=== PATIENT | male | born 1945 | race Caucasian/White ===

== ENCOUNTER 2020-07-16 10:33 | Inpatient (IN) | payer MEDICARE, OTHER ==
[~2020-07-16] VITALS: Ht 180.3 cm; Wt 118.4 kg
[~2020-07-16 10:33] MED LIST: NEURONTIN300 MG PO; TRAMADOL HCL50 M1 PO; Z.0.ALLOPURINOL300 M PO; Z.0.ASACOL400 MG PO; Z.0.FOLIC ACID1 MG PO; Z.0.HUMIRA40 MG/0.1 SQ; Z.0.LISINOPRIL20 MG PO; Z.0.PRILOSEC OTC20 M PO; Z.0.TRILIPIX135 MG PO; Z.0.VITAMIN D2000 UN PO; Z.1.METHOTREXATE2.5 PO; [UNRECOGNIZED DRUG - OTHER] PO
[2020-07-16] MEDS ORDERED: LACTATED RINGER'S 1,000 ML INJ ONE ×2 (11:00→12:30)
--- NOTE | 2020-07-16 11:06 | Emergency Department Note ---
History of Present Illnes History of Present Illness Chief Complaint: COVID PUI History of Present Illness This is a 75 year old male that has a history of COPD now with a new fever today and slightly worsening cough. Patient also feels generalized weakness, nonfocal. Patient denies any pain anywhere, no abdominal pain, no urinary complaints. Patient is otherwise at baseline. Otherwise, patient had an axillary temperature of 101 this morning for which she took a gram of Tylenol. . Arrival Mode: Car Onset (how long ago): day(s) (1) Location: diffuse Quality: cough Radiation: Reports non-radiation Severity: moderate Onset quality: gradual Duration (how long): day(s) (1) Timing of current episode: constant Progression: worsening Chronicity: new Context: Reports recent illness; Denies non-compliance w/ medications Relieving factors: none Exacerbating factors: none Associated symptoms: Reports cough, Reports fever/chills, Reports loss of appetite, Reports malaise, Reports weakness, Reports other (+URI, nasal congestion); Denies nausea/vomiting, Denies shortness of breath Past Medical/Family History Physician Review I have reviewed the patient's past medical and family history. Any updates have been documented here. Past Medical History Other Medical History: CHRONS, RA, Other Surgery: LOWER GI, KNEE Other Last Tetanus: UTD Review of Systems Review of Systems Constitutional: Reports no symptoms EENTM: Reports as per HPI Cardiovascular: Reports no symptoms Respiratory: Reports no symptoms Gastrointestinal: Reports no symptoms Genitourinary: Reports no symptoms Musculoskeletal: Reports no symptoms Integumentary: Reports no symptoms Neurological: Reports as per HPI Psychological: Reports no symptoms Endocrine: Reports no symptoms Hematological/Lymphatic: Reports no symptoms Physical Exam Related Data Allergies: Coded Allergies: hydroxychloroquine sulfate (Verified Allergy, Severe, 05/03/12) Vital signs reviewed: Yes Physical Exam CONSTITUTIONAL Constitutional: Present well-developed, Present well-nourished HENT HENT: Present normocephalic, Present atraumatic, Present oropharynx clear/moist, Present nose normal HENT L/R: Present left ext ear normal, Present right ext ear normal EYES Eyes: Reports PERRL, Reports conjunctivae normal NECK Neck: Present ROM normal PULMONARY Pulmonary: Present effort normal, Present rales (LLL) CARDIOVASCULAR Cardiovascular: Present regular rhythm, Present heart sounds normal, Present capillary refill normal, Present tachycardia GASTROINTESTINAL Abdominal: Present soft, Present nontender, Present bowel sounds normal GENITOURINARY Genitourinary: Present exam deferred SKIN Skin: Present warm, Present dry MUSCULOSKELETAL Musculoskeletal: Present ROM normal, Present tenderness (TTP) NEUROLOGICAL Neurological: Present alert, Present oriented x 3, Present no gross motor or sensory deficits PSYCHOLOGICAL Psychological: Present mood/affect normal, Present judgement normal Results Laboratory Laboratory Laboratory Tests Test 07/16/20 11:59 07/16/20 10:50 Urine Color Yellow (YELLOW) Urine Clarity Sl cloudy (CLEAR) Urine pH 5.5 (5 - 7) Urine Specific [place] 1.020 (1.010-1.025) Urine Protein 1+ (NEGATIVE) Urine Glucose (UA) Negative (NEGATIVE) Urine Ketones Negative (NEGATIVE) Urine Blood Negative (NEGATIVE) Urine Nitrite Negative (NEGATIVE) Urine Bilirubin Negative (NEGATIVE) Urine Urobilinogen 0.2 mg/dL (0.2 - 1) Urine Leukocyte Esterase Negative (NEGATIVE) Urine RBC 0-5 /HPF (0-5) Urine WBC 0-5 /HPF (0-5) Urine Epithelial Cells Few /LPF (NONE) Urine Bacteria Rare /HPF (NONE) White Blood Count 17.43 x10e3/uL (4.8-10.8) Red Blood Count 3.84 x10e6/uL (4.3-5.7) Hemoglobin 12.0 g/dL (14.0-18.0) Hematocrit 36.6 % (38.2-49.6) Mean Corpuscular Volume 95.3 fL (81-99) Mean Corpuscular Hemoglobin 31.3 pg (28-32) Mean Corpuscular Hemoglobin Concent 32.8 g/dL (31-35) Red Cell Distribution Width 14.5 % (11.7-14.4) Platelet Count 219 x10e3/uL (140-360) Neutrophils (%) (Auto) 81.2 % (38.7-80.0) Lymphocytes (%) (Auto) 9.9 % (18.0-39.1) Monocytes (%) (Auto) 7.8 % (4.4-11.3) Eosinophils (%) (Auto) 0.1 % (0.0-6.0) Basophils (%) (Auto) 0.3 % (0.0-1.0) Neutrophils # (Auto) 14.1 (2.1-6.9) Lymphocytes # (Auto) 1.7 (1.0-3.2) Monocytes # (Auto) 1.4 (0.2-0.8) Eosinophils # (Auto) 0.0 (0.0-0.4) Basophils # (Auto) 0.1 (0.0-0.1) Absolute Immature Granulocyte (auto 0.13 x10e3/uL (0-0.1) D-Dimer Quantitative (PE/DVT) 1.50 ug/mLFEU (0.00-0.45) Sodium Level 141 mmol/L (136-145) Potassium Level 3.2 mmol/L (3.5-5.1) Chloride Level 107 mmol/L (98-107) Carbon Dioxide Level 17 mmol/L (22-29) Anion Gap 20.2 mmol/L (8-16) Blood Urea Nitrogen 13 mg/dL (7-26) Creatinine 1.34 mg/dL (0.72-1.25) Estimat Glomerular Filtration Rate 52 ML/MIN (60-) BUN/Creatinine Ratio 10 (6-25) Glucose Level 109 mg/dL (74-118) Lactic Acid Level 3.4 mmol/L (0.5-2.0) Calcium Level 8.6 mg/dL (8.4-10.2) Total Bilirubin 1.1 mg/dL (0.2-1.2) Aspartate Amino Transf (AST/SGOT) 27 IU/L (5-34) Alanine Aminotransferase (ALT/SGPT) 24 IU/L (0-55) Alkaline Phosphatase 93 IU/L (40-150) Troponin I 0.048 ng/mL (0-0.300) B-Type Natriuretic Peptide 78.8 pg/mL (0-100) Total Protein 6.8 g/dL (6.5-8.1) Albumin 3.9 g/dL (3.5-5.0) Globulin 2.9 g/dL (2.3-3.5) Albumin/Globulin Ratio 1.3 (0.8-2.0) Lab results reviewed: Yes Imaging Imaging results reviewed: Yes Diagnostics Tests Diagnostic test(s) reviewed: Yes Assessment & Plan Medical Decision Making MDM Patient is a 75-year-old male that has a history of a fever, worsening cough, runny nose for 1 day. Patient is tachycardic, otherwise does not appear septic. We will do a septic workup and chest x-ray to rule out pneumonia. No abdominal pain, no urinary complaints no other source of infection. EKG interpreted by me shows sinus tachycardia, left axis deviation, normal intervals, no acute ST changes, poor anterior progression otherwise EKG nondiagnostic. Reassessment Reassessment 12:19 - patient with concern for multi-lobar pneumonia, COVID neg. We will continue hydration, cover w cefepime and vanc. Pt is [facility] patient, will be admitted to unassigned. BP normal. No sign of shock at this time, repeat lactate sent. Assessment & Plan Final Impression: (1) Multilobar lung infiltrate (2) Sepsis Depart Disposition: ADMITTED Last Vital Signs Date Time Temp Pulse Resp B/P (MAP) Pulse Ox O2 Delivery O2 Flow Rate FiO2 07/16/20 11:05 99 26 97 Room Air 07/16/20 10:40 98.1 Home Meds Reported Medications Mu-Vits-Min Th/Lycopene/Lutein (CENTRUM SILVER TABLET) 1 Each Tablet 07/16/20 [place]-3 Fatty Acids (OMEGA-3) 1,000 Mg Capsule, 1 TAB PO BID 07/16/20 Sulfasalazine (SULFASALAZINE) 500 Mg Tab, 500 MG PO BID, #30 TAB 07/16/20 Pregabalin (LYRICA) 75 Mg Cap, 75 MG PO TID, CAP 07/16/20 Hydrocodone Bit/Acetaminophen (NORCO 10-325 TABLET) 1 Each Tablet, 1 TAB PO Q6H PRN for SEVERE PAIN (7-10), TAB 07/16/20 Simvastatin (SIMVASTATIN) 40 Mg Tablet, 40 MG PO 2100, #30 TAB 07/16/20 Omeprazole Magnesium (Prilosec Otc) 20 Mg Tablet.dr, 40 MG PO DAILY 04/25/12 Allopurinol (Allopurinol) 300 Mg Tablet, 300 MG PO DAILY 04/25/12 Zinc (Zinc) 50 Mg Tablet, 50 MG PO DAILY 04/25/12 Cholecalciferol (Vitamin D) 2,000 Unit Tablet, 2000 UNIT PO DAILY 04/25/12 Adalimumab (Humira) 40 Mg/0.8 Ml [email or web address], 40 MG SQ 04/25/12 Lisinopril (Lisinopril) 20 Mg Tablet, 20 MG PO DAILY 04/25/12 Discontinued Reported Medications Fenofibric Acid (Choline) (Trilipix) 135 Mg Capsule.dr, 135 MG PO DAILY 04/25/12 Mesalamine (Asacol) 400 Mg Tablet.dr, 400 MG PO TID, #2 04/25/12 Medications in the ED Lactated Ringer's 1,000 ml @ 0 mls/hr Q0M ONCE INJ ; Start 07/16/20 at 11:00; Stop 07/16/20 at 11:01 YULY SOLO MD Jul 16, 2020 11:06
[2020-07-16 11:10] LABS: BASOPHILS # (AUTO) 0.1 (0.0-0.1); BASOPHILS % 0.3 % (0.0-1.0); EOSINOPHILS % 0.1 % (0.0-6.0); HEMATOCRIT 36.6 % (38.2-49.6); LYMPHOCYTES # (AUTO) 1.7 (1.0-3.2); LYMPHOCYTES % 9.9 % (18.0-39.1); MEAN CORPUSCULAR HEMOGLOBIN 31.3 pg (28-32); MEAN CORPUSCULAR HGB CONC 32.8 g/dL (31-35); MEAN CORPUSCULAR VOLUME 95.3 fL (81-99); MONOCYTES # (AUTO) 1.4 (0.2-0.8); MONOCYTES % 7.8 % (4.4-11.3); NEUTROPHILS # (AUTO) 14.1 (2.1-6.9); NEUTROPHILS % 81.2 % (38.7-80.0); PLATELET COUNT 219 x10e3/uL (140-360); RED BLOOD COUNT 3.84 x10e6/uL (4.3-5.7); RED CELL DISTRIBUTION WIDTH 14.5 % (11.7-14.4)
[2020-07-16] MEDS ORDERED: CENTRUM SILVER1 EAC3 (11:13)
[2020-07-16] MEDS ORDERED: OMEGA-31000 MG PO (11:13)
[2020-07-16] MEDS ORDERED: SIMVASTATIN40 MG PO (11:13)
[2020-07-16] MEDS ORDERED: SULFASALAZINE500 MG PO (11:13)
[2020-07-16] MEDS ORDERED: LYRICA75 MG PO (11:13)
[2020-07-16] MEDS ORDERED: NORCO 10-325 T1 EACH PO (11:13)
--- OUTSIDE RECORDS SUMMARY | 2020-07-16 11:23 | XMS REPORT | Continuity of Care Document ---
Author Author dotSyntaxann Information HANNY Wagner Organization [employer] Address Unknown Phone Unavailable Care Team Providers Care Insurance Claim Auditor Name Role Phone [employer] Unavailable Un available Problems Problem Status Onset Date Classification Date Reported Comments Source RT KNEE Active 05/05/2020 SMR [place] M54.31 - SCIATICA, RIGHT SIDE Active 04/24/2018 OPID [place] Body mass index (BMI) 37.0-37.9, adult Active Problem Dale Pintoer Morbid (severe) obesity due to excess calories Active Problem 05/28/2019 Dale Tracey Carpal tunnel syndrome Active Problem 06/25/2020 Dale Pintoer Crohn disease Active Problem 06/25/2020 Dale Pintoer Fever, unspecified Active Problem 06/25/2020 Dale Pintoer Other custodial (current) drug therapy Active Problem Dale Tracey Body mass index (BMI) 34.0-34.9, adult Active Problem Dale Tracey Crohn's disease, unspecified, with other complication Active Problem 06/25/2020 Dale Pintoer Inflammatory arthritis Active Diagnosis 06/25/2020 Dale Tracey Lumbar degenerative disc disease Active Problem Dale Tracey Primary osteoarthritis of right knee Active Problem Dale Pintoer Rheumatoid arthritis Active Problem 12/03/2019 Dale Pintoer Long-term (current) use of other medicat ions - High Risk Active Diag nosis 02/18/2019 Dale Tracey Osteoporosis screening Active Diagnosis 05/01/2018 Dale Pintoer Crohn's disease Active Problem 10/17/2016 Dale Pintoer RENAL INSUFFICIENCY Active Problem 10/17/2016 Dale Tracey Nonspecific reaction to tuberculin skin test without active tuberculosis Active Prob emil 10/17/2016 Dale Tracey Lumbar Radiculopathy Active Problem 10/17/2016 Dale Alexy Rheumatoid arthritis with unknown rheuma toid factor status Active Prob emil 02/01/2016 Dalekath Tracey tank terminal gauger (current) use of opiate analgesic Active Diagnosis 05/28/2019 Dale Tracey Degeneration of lumbar or lumbosacral in tervertebral disc Active Diag nosis 06/17/2014 Dale Tracey Spasm of muscle Active Diagnosis 06/17/2014 Dale Tracey Unspecified drug dependence Ac tive Diagnosis 1 Dale Tracey Hand pain, right Active Diagnosis 12/10/2015 Dale Alexy Hand pain, left Active Diagnosis 12/10/2015 Dale Tracey Rheumatoid arthritis Active Problem 06/25/2020 Dale Tracey Immunocompromised patient Acti ve Diagnosis 0 02/12/2020 Dale Tracey Immunocompromised state Active Problem 06/25/2020 Dale Tracey Medications Medication Details Route Status Patient Instructions Ordering Provider Order Date Source Synvisc One 6ml Intra-articular Active 48 MG/6ML Intra-articul ar into bi knees Hanson 12/22/2019 Dale Tracey Prednisone Taper as directed orally Active 5mg orally 3 tablets for 5 days, 2 tablets for 5 days and then 1 tablet for 5 days Tracey 08/25/2019 Dale Tracey Sulfasalazine 1 tablet Orally Active 500 MG Orally twice a d ay Kassie 07/09/2019 Dale Tracey Hydrocodone-Acetaminophen 1 ta blet as needed Orally Active 10-325 MG Orally qd prn Kassie 06/18/2019 Dale Tracey Folic Acid 1 tablet Orally Active 1 MG Orally Once a day [place] 05/14/2019 Dale Tracey Folic Acid 1 tablet Orally Active 1 MG Orally Once a day Tracey 01/30/2019 Dale Tracey Sulfasalazine 1 tablet Orally Active 500 Orally twice a day [place] 12/01/2017 Dale Tracey Hymovis as directed Intra- articular Active 24 MG/3ML Intra-articular Once a week Tracey 10/02/2017 Dale Tracey Synvisc One 1 injection Intra- articular Active 48 MG/6ML Intra-articular once [place] 09/02/2017 Dale Tracey Sulfasalazine 1 tablet Orally Active 500 MG Orally bid [place] 02/28/2017 Dale Tracey Hydrocodone-Acetaminophen 1 ta blet as needed Orally Active 10-325 MG Orally twice a day Kassie 12/30/2016 Dale Tracey Humira Pen 0.8 Subcutaneous Active 40 MG/0.8ML Subcutaneou s Once every two weeks Kassie 11/12/2015 Dale Tracey Folic Acid 1 tablet Orally Active 1 MG Orally Once a day Kassie 08/17/2015 Dale Tracey PredniSONE 1 tab Orally Active 5 MG Orally Once a dayp rn for RA flare. Kassie 05/26/2015 Dale Tracey Methotrexate (Anti-Rheumatic) as directed Orally Active 2.5 MG Orally take 8 tabs all together once weekly Kassie 02/18/2015 Dale Tracey Folic Acid as directed Orally Active 1 MG Orally every day e xcept for saturday Kassie 02/18/2015 Dale Tracey Hydrocodone-Acetaminophen 1 ta blet as needed Orally Active 10-325 MG Orally once a day [place] 05/26/2014 Dale Tracey Soma 1 tablet as needed Orally Active 250 MG Orally Three giselle es a day [place] 05/18/2014 Dale Tracey Vitamin B-12 1 tablet Orally Active Orally once a day [place] Naresh Tracey Centrum Silver Adult 50+ 1 tab let Orally Active Orally Once a day [facility] Dale Tracey Simvastatin 1 tablet in the ev ening Orally Active 40 MG Orally Once a day [facility] Dale Tracey Pentoxifylline 1 tablet with m eals Orally Active 400 MG Orally Twice a day [facility] Dale Tracey Apriso 4 capsules in the morni ng Orally Active 0.375 GM Orally Once a day [place] Dale Tracey Hydrocodone-Acetaminophen 1 ta blet as needed Orally Active 10-325 MG Orally twice a day [place] Dale Tracey Claritin 1 tablet Orally Active 10 MG Orally PRN [facility] Naresh Tracey Zinc 1 tablet Orally Active 50 MG Orally Once a day [facility] Naresh Tracey Lisinopril 1 tablet Orally Active 20 MG Orally Once a day [facility] Naresh Tracey Lyrica 1 capsule Orally Active 75 MG Orally Twice a da y [facility] Naresh Tracey Humira 0.8 ml Subcutaneous Active 40 MG/0.8ML Subcutaneou s every 2wks. [facility] Dale Tracey Fish Oil 1 capsule Orally Active 1000 MG Orally Once a d ay [facility] Naresh Tracey Allopurinol 1 tablet Orally Active 300 MG Orally Once a da y [facility] Dale Tracey Omeprazole 1 capsule Orally Active 40 MG Orally Once a day [facility] Naresh Tracey Vitamin D-3 1 capsule Orally Active 2000 UNIT Orally Once a day [place] Dale Tracey Vitamin C 1 capsule Orally Active Orally once a day [facility] Tracey Folic Acid TAKE ONE TABLET BY MOUTH DAILY EXCEPT FOR SATURDAY DIRECTED NA Active 1 MG [place] Dale Tracey Centrum Silver Adult 50+ 1 tab let Orally Active Orally Once a day [place] Dale Tracey Simvastatin 1 tablet in the ening Orally Active 40 MG Orally Once a day [place] Dale Tracey Claritin 1 tablet Orally Active 10 MG Orally Once a day [place] [facility] Fish Oil 1 capsule Orally Active 1000 MG Orally Once a d ay [place] Dale Tracey Lyrica 1 capsule Orally Active 75 MG Orally Twice a da y [place] [facility] Allopurinol 1 tablet Orally Active 300 MG Orally Once a da y [place] Dale Tracey Apriso [address] [facility] [facility] Orally Active 0.375 GM Orally Once a day [place] Dale Tracey Lisinopril 1 tablet Orally Active 20 MG Orally Once a day [place] [facility] Hydrocodone-Acetaminophen 1 ta blet as needed Orally Active 10-325 MG Orally twice a day [place] Dale Tracey Humira 0.8 ml Subcutaneous Active 40 MG/0.8ML Subcutaneou s every 2wks. [place] Dale Tracey Omeprazole 1 capsule Orally Active 40 MG Orally Once a day [place] Dale Tracey Vitamin C 1 capsule Orally Active Orally once a day [place] [facility] Pentoxifylline 1 tablet with m eals Orally Active 400 MG Orally Twice a day [place] Dale Tracey Vitamin D-3 1 capsule Orally Active 2000 UNIT Orally Once a day [place] Dale Tracey Zinc 1 tablet Orally Active 50 MG Orally Once a day [place] [facility] Vitamin B-12 1 tablet Orally Active Orally once a day [place] [facility] Sulf[facility] 1 tablet Orally Active 500 MG Orally twice a d ay [facility] Dale Tracey Vascepa 2 capsules with meals Orally Active 1 GM Orally Twice a day [facility] Dale Pintoer Tizanidine HCl 1 tablet as nee ded Orally Active 4 MG Orally Three times a day [place] Dale Tracey Nexium 1 capsule Orally Active 40 MG Orally Once a day [place] Tracey Trilipix 1 capsule Orally Active 135 MG Orally Once a da y [place] Naresh lip Tracey Humira Pen 0.8 Subcutaneous Active 40 MG/0.8ML Subcutaneou s Once every two weeks Alexy Pintoer Hydrocodone-Acetaminophen 1 ta blet as needed Orally Active 10-325 MG Orally once a day Alexy Pintoer Asacol 2 tablets Orally Active 800 MG Orally three giselle es [facility] Tracey Soma TAKE 1 TABLET BY MOUTH 3 TIMES A DAY NEEDED Orally Active 250 MG Orally TID Traceyrosanna Hunter Tracey Gabapentin 1 capsule Orally Active 300 MG Orally Twice a d ay Rolly Tracey Folic Acid TAKE DIRECTED BY MOUTH EVERY DAY EXCEPT FOR SATURDAY NA Active 1 MG [place] Dale Tracey Folic Acid TAKE DIRECTED BY MOUTH EVERY DAY EXCEPT FOR SATURDAY Orally Active 1 MG Orally Once a day Kassie Tracey Sulfamethoxazole-TMP DS 1 tabl et Orally Active 800-160 MG Orally Twice a day Kassie Tracey Methotrexate (Anti-Rheumatic) as directed Orally Active 2.5 MG Orally take 8 tabs all together once weekly [place] Dale Tracey Humira 0.4 ml Subcutaneous Active 40 MG/0.4ML Subcutaneou s every 2wks. Alexy Tracey Folic Acid TAKE ONE TABLET BY MOUTH DAILY NA Active 1 MG [place] Naresh moe Tracey Allergies, Adverse Reactions, Alerts Substance Category Reaction Severity Reaction type Status Date Reported Comments Source Methotrexate Adverse Reaction PNA Adverse Reaction Active 05/05/2020 Dale Tracey Plaquenil Adverse Reaction hives Adverse Reaction Active 05/05/2020 Dale Tracey Immunizations No Data Provided for This Section Results No Data Provided for This Section Pathology Reports No Data Provided for This Section Diagnostic Reports Report Value Date Source Bone Density DXA Dual Energy MA MALE BONE DENSITY ASSESSMENT: 04/25/2020 CLINICAL DATA: M81.0 Age-related osteoporosis without current pathologic fracture. /Z13.820 RISK FACTORS: race and more than 3 drinks per day. DISEASE HISTORY: Rheumatoid arthritis and cancer history. FINDINGS: Bone density evaluation was performed 04/25/2020 on the right femur neck using a Hologic unit. The BMD average for the exam is 0.903 g/cm2. The T-score is -0.20 and the Z-score is 1.10. This matches the World Health Organization's criteria for normal bone density and places the patient within normal limits of fracture risk. An additional bone density evaluation was performed 04/25/2020 on the left femur neck using a Hologic unit. The BMD average for the exam is 0.901 g/cm2. The T- score is -0.20 and the Z-score is 1.10. This matches the World Health Organization's criteria for normal bone density and places the patient within normal limits of fracture risk. An additional bone density evaluation was performed 04/25/2020 on the right hip using a Hologic unit. The BMD average for the exam is 1.097 g/cm2. The T-score is 0.40 and the Z-score is 1.20. This matches the World Health Organization's criteria for normal bone density and places the patient within normal limits of fracture risk. An additional bone density evaluation was performed 04/25/2020 on the left hip using a Hologic unit. The BMD average for the exam is 1.069 g/cm2. The T-score is 0.20 and the Z-score is 1.00. This matches the World Health Organization's criteria for normal bone density and places the patient within normal limits of fracture risk. An additional bone density evaluation was performed 04/25/2020 on the AP L1-L3 region of spine using a Hologic unit. The BMD average for the exam is 1.241 g/cm2. The T-score is 1.60 and the Z-score is 2.50. This matches the World Health Organization's criteria for normal bone density and places the patient within normal limits of fracture risk. IMPRESSION: BONE DENSITY WITHIN NORMAL LIMITS Patient is at normal risk for fracture. This exam was interpreted at [id number] for RON Joshi 15. Jordan Carver M.D., cm/damion:04/25/2020 13:56:03 Nursing Assoc(s): Chelsy HOLLEY(R)(M), [facility] 04/25/2020 EDDIE Khan Spine lumbar series DX EXAM: S pine lumbar series DX, Spine thoracic 3 views DX HISTORY: - M54.31 Sciatica, right side COMPARISON: None AP and lateral thoracic spine. AP and lateral and oblique lumbar spine. FINDINGS: Thoracic spine: There are moderate lower thoracic discogenic degenerative changes and mild degenerative changes elsewhere. There is slight anterior wedging at T11 and T12. . Lumbar spine: AP alignment is normal. There is no significant vertebral body or disc space height loss. Discogenic degenerative change at L1. Moderate L3-S1 facet arthropathy. IMPRESSION: 1. Moderate discogenic degenerative fitzgerald ge of the lower thoracic spine with slight anterior wedging of T11 and T12, stable when compared to the chest radiograph from 02/25/2015. 2. Facet arthropathy of the lower lumbar spine. 04/24/2018 GIL Khan Spine thoracic 3 views DX EXAM : Spine lumbar series DX, Spine thoracic 3 views DX HISTORY: - M54.31 Sciatica, right side COMPARISON: None AP and lateral thoracic spine. AP and lateral and oblique lumbar spine. FINDINGS: Thoracic spine: There are moderate lower thoracic discogenic degenerative changes and mild degenerative changes elsewhere. There is slight anterior wedging at T11 and T12. . Lumbar spine: AP alignment is normal. There is no significant vertebral body or disc space height loss. Discogenic degenerative change at L1. Moderate L3-S1 facet arthropathy. IMPRESSION: 1. Moderate discogenic degenerative fitzgreald ge of the lower thoracic spine with slight anterior wedging of T11 and T12, stable when compared to the chest radiograph from 02/25/2015. 2. Facet arthropathy of the lower lumbar spine. 04/24/2018 GIL Khan Consultation Notes No Data Provided for This Section Discharge Summaries No Data Provided for This Section History and Physicals No Data Provided for This Section Vital Signs Vital Sign Value Date Comments Source Weight 262.3 02/04/2020 Dale Tracey Height 69 0 02/04/2020 Dale Tracey Temperature Oral (F) 97.3 F 02/04/2020 Dale Tracey Heart Rate 80 02/04/2020 Dale Tracey Diastolic (mm Hg) 80 02/04/2020 Dale Tracey Systolic (mm Hg) 150 02/04/2020 Dale Tracey Weight 262.1 12/22/2019 Dale Tracey Height 70 0 12/22/2019 Dale Tracey Temperature Oral (F) 97.5 F 12/22/2019 Dale Tracey Heart Rate 80 12/22/2019 Dale Tracey Diastolic (mm Hg) 78 12/22/2019 Dale Tracey Systolic (mm Hg) 160 12/22/2019 Dale Tracey Weight 268.2 05/19/2019 Dale Tracey Height 70 0 05/19/2019 Dale Tracey Temperature Oral (F) 98.1 F 05/19/2019 Dale Tracey Heart Rate 82 05/19/2019 Dale Tracey Diastolic (mm Hg) 70 05/19/2019 Dale Tracey Systolic (mm Hg) 122 05/19/2019 Dale Tracey Weight 276.3 01/01/2019 Dale Tracey Height 70 0 01/01/2019 Dale Tracey Temperature Oral (F) 97.9 F 01/01/2019 Dale Tracey Heart Rate 104 01/01/2019 Dale Tracey Diastolic (mm Hg) 76 01/01/2019 Dale Tracey Systolic (mm Hg) 154 01/01/2019 Dale Tracey Weight 264.4 09/01/2018 Dale Tracey Height 70 1 Dale Tracey Temperature Oral (F) 98.1 F 09/01/2018 Dale Tracey Heart Rate 86 09/01/2018 Dale Tracey Diastolic (mm Hg) 70 09/01/2018 Dale Tracey Systolic (mm Hg) 136 09/01/2018 Dale Tracey Weight 256 08/20/2018 Dale Tracey Height 70 1 Dale Tracey Temperature Oral (F) 97.4 F 08/20/2018 Dale Tracey Heart Rate 100 08/20/2018 Dale Tracey Diastolic (mm Hg) 78 08/20/2018 Dale Tracey Systolic (mm Hg) 142 08/20/2018 Dale Tracey Weight 258 04/22/2018 Dale Tracey Height 68.5 04/22/2018 Dale Tracey Temperature Oral (F) 97.9 F 04/22/2018 Dale Tracey Heart Rate 56 04/22/2018 Dale Tracey Diastolic (mm Hg) 58 04/22/2018 Dale Tracey Systolic (mm Hg) 118 04/22/2018 Dale Tracey Weight 268.5 12/23/2017 Dale Tracey Height 70 0 12/23/2017 Dale Tracey Temperature Oral (F) 97.7 F 12/23/2017 Dale Tracey Heart Rate 78 12/23/2017 Dale Tracey Diastolic (mm Hg) 60 12/23/2017 Dale Tracey Systolic (mm Hg) 140 12/23/2017 Dale Tracey Weight 259.3 10/22/2017 Dale Tracey Height 70 1 12/23/2016 Dale Tracey Temperature Oral (F) 98.7 F 10/22/2017 Dale Tracey Heart Rate 76 10/22/2017 Dale Tracey Diastolic (mm Hg) 82 10/22/2017 Dale Tracey Systolic (mm Hg) 148 10/22/2017 Dale Tracey Weight 267.1 09/02/2017 Dale Tracey Height 70 1 Dale Tracey Temperature Oral (F) 97.9 F 09/02/2017 Dale Tracey Heart Rate 80 09/02/2017 Dale Tracey Diastolic (mm Hg) 70 09/02/2017 Dale Tracey Systolic (mm Hg) 144 09/02/2017 Dale Tracey Weight 262 06/03/2017 Dale Tracey Height 70 0 06/03/2017 Dale Tracey Temperature Oral (F) 98.4 F 06/03/2017 Dale Tracey Heart Rate 82 06/03/2017 Dale Tracey Diastolic (mm Hg) 60 06/03/2017 Dale Tracey Systolic (mm Hg) 140 06/03/2017 Dale Tracey Weight 265 02/28/2017 Dale Tracey Height 70 0 02/28/2017 Dale Tracey Temperature Oral (F) 98.1 F 02/28/2017 Dale Tracey Heart Rate 80 02/28/2017 Dale Tracey Diastolic (mm Hg) 64 02/28/2017 Dale Tracey Systolic (mm Hg) 142 02/28/2017 Dale Tracey Weight 261 11/30/2016 Dale Tracey Height 70 0 11/30/2016 Dale Tracey Temperature Oral (F) 96.3 F 11/30/2016 Dale Tracey Heart Rate 120 11/30/2016 Dale Tracey Diastolic (mm Hg) 62 11/30/2016 Dale Tracey Systolic (mm Hg) 160 11/30/2016 Dale Tracey Weight 267 08/30/2016 Dale Tracey Height 71 1 Dale Tracey Temperature Oral (F) 102.1 F 08/30/2016 Dale Tracey Heart Rate 86 08/30/2016 Dale Tracey Diastolic (mm Hg) 76 08/30/2016 Dale Tracey Systolic (mm Hg) 136 08/30/2016 Dale Tracey Weight 266 05/31/2016 Dale Tracey Height 70 0 05/31/2016 Dale Tracey Temperature Oral (F) 97.9 F 05/31/2016 Dale Tracey Heart Rate 80 05/31/2016 Dale Tracey Weight 271 05/03/2016 Dale Tracey Height 70 0 05/03/2016 Dale Tracey Temperature Oral (F) 97.3 F 05/03/2016 Dale Tracey Heart Rate 78 05/03/2016 Dale Tracey Diastolic (mm Hg) 74 05/03/2016 Dale Tracey Systolic (mm Hg) 122 05/03/2016 Dale Tracey Weight 260 02/01/2016 Dale Tracey Height 70 0 02/01/2016 Dale Tracey Temperature Oral (F) 98.4 F 02/01/2016 Dale Tracey Heart Rate 80 02/01/2016 Dale Tracey Diastolic (mm Hg) 70 02/01/2016 Dale Tracey Systolic (mm Hg) 140 02/01/2016 Dale Tracey Weight 263 08/17/2015 Dale Tracey Height 70 1 Dale Tracey Temperature Oral (F) 97.6 F 08/17/2015 Dale Tracey Heart Rate 76 08/17/2015 Dale Tracey Diastolic (mm Hg) 72 08/17/2015 Dale Tracey Systolic (mm Hg) 126 08/17/2015 Dale Tracey Weight 257 05/26/2015 Dale Tracey Height 70 0 05/26/2015 Dale Tracey Temperature Oral (F) 98.1 F 05/26/2015 Dale Tracey Heart Rate 78 05/26/2015 Dale Tracey Diastolic (mm Hg) 74 05/26/2015 Dale Tracey Systolic (mm Hg) 130 05/26/2015 Dale Tracey Weight 262 07/07/2014 Dale Tracey Height 70 0 07/07/2014 Dale Tracey Temperature Oral (F) 98.8 F 07/07/2014 Dale Tracey Heart Rate 80 07/07/2014 Dale Tracey Diastolic (mm Hg) 70 07/07/2014 Dale Tracey Systolic (mm Hg) 118 07/07/2014 Dale Tracey Weight 258 05/18/2014 Dale Tracey Height 70 0 05/18/2014 Dale Tracey Temperature Oral (F) 98.4 F 05/18/2014 Dale Tracey Heart Rate 84 05/18/2014 Dale Tracey Diastolic (mm Hg) 72 05/18/2014 Dale Tracey Systolic (mm Hg) 126 05/18/2014 Dale Tracey Encounters Location Location Details Encounter Type Encounter Number Reason For Visit Attending Provider ADM Date DC Date Status Source Ricky Tracey MD consult of MRI [id number] 05/18/20 14 05/18/2014 Dale Tracey MD consult of MRI [id number] 05/18/20 14 05/18/2014 Dale Tracey MD consult of MRI [id number] 05/18/20 14 05/18/2014 Dale Tracey MD consult of MRI [id number] 05/18/20 14 05/18/2014 Dale Tracey MD consult of MRI [id number] 05/18/20 14 05/18/2014 Dale Tracey MD consult of MRI [id number] 05/18/20 14 05/18/2014 Dale Tracey MD consult of MRI [id number] 05/18/20 14 05/18/2014 Dale Tracey MD consult of MRI [id number] 05/18/20 14 05/18/2014 Dale Tracey MD consult of MRI [id number] 05/18/20 14 05/18/2014 Dale Tracey MD consult of MRI [id number] 05/18/20 14 05/18/2014 Dale Tracey MD consult of MRI [id number] 05/18/20 14 05/18/2014 Dale Tracey MD consult of MRI [id number] 05/18/20 14 05/18/2014 Dale Tracey MD consult of MRI [id number] 05/18/20 14 05/18/2014 Dale Tracey MD consult of MRI [id number] 05/18/20 14 05/18/2014 Dale Tracey MD consult of MRI [id number] 05/18/20 14 05/18/2014 Dale Tracey MD consult of MRI [id number] 05/18/20 14 05/18/2014 Dale Tracey MD consult of MRI [id number] 05/18/20 14 05/18/2014 Dale Tracey MD consult of MRI [id number] 05/18/20 14 05/18/2014 Dale Tracey MD consult of MRI [id number] 05/18/20 14 05/18/2014 Dale Tracey MD consult of MRI [id number] 05/18/20 14 05/18/2014 Dale Tracey MD consult of MRI [id number] 05/18/20 14 05/18/2014 Dale Tracey MD consult of MRI [id number] 05/18/20 14 05/18/2014 Dale Tracey MD consult of MRI [id number] 05/18/20 14 05/18/2014 Dale Tracey MD consult of MRI [id number] 05/18/20 14 05/18/2014 Dale Tracey MD consult of MRI [id number] 05/18/20 14 05/18/2014 Dale Tracey MD consult of MRI [id number] 05/18/20 14 05/18/2014 Dale Tracey MD consult of MRI [id number] 05/18/20 14 05/18/2014 Dale Tracey MD consult of MRI [id number] 05/18/20 14 05/18/2014 Dale Tracey MD consult of MRI [id number] 05/18/20 14 05/18/2014 Dale Tracey MD consult of MRI [id number] 05/18/20 14 05/18/2014 Dale Tracey MD consult of MRI [id number] 05/18/20 14 05/18/2014 Dale Tracey MD consult of MRI [id number] 05/18/20 14 05/18/2014 Dale Tracey MD consult of MRI [id number] 05/18/20 14 05/18/2014 Dale Tracey MD consult of MRI [id number] 05/18/20 14 05/18/2014 Dale Tracey MD consult of MRI [id number] 05/18/20 14 05/18/2014 Dale Tracey MD consult of MRI [id number] 05/18/20 14 05/18/2014 Dale Tracey MD consult of MRI [id number] 05/18/20 14 05/18/2014 Dale Tracey MD consult of MRI [id number] 05/18/20 14 05/18/2014 Dale Tracey MD consult of MRI [id number] 05/18/20 14 05/18/2014 Dale Tracey MD consult of MRI [id number] 05/18/20 14 05/18/2014 Dale Tracey MD consult of MRI [id number] 05/18/20 14 05/18/2014 Dale Tracey MD soma PA [id number] 05/18/20 14 05/18/2014 Dale Tracey MD soma PA [id number] 05/18/20 14 05/18/2014 Dlae Tracey MD soma PA [id number] 05/18/20 14 05/18/2014 Dale Tracey MD soma PA [id number] 05/18/20 14 05/18/2014 Dale Tracey MD [facility] [place] [id number] 05/18/20 14 05/18/2014 Dale Tracey MD soma PA [id number] 05/18/20 14 05/18/2014 Dale Tracey MD [facility] PA [id number] 05/18/20 14 05/18/2014 Dale Tracey MD soma PA [id number] 05/18/20 14 05/18/2014 Dale Tracey MD soma PA [id number] 05/18/20 14 05/18/2014 Dale Tracey MD soma PA [id number] 05/18/20 14 05/18/2014 Dale Tracey [place] [facility] [id number] 05/18/20 14 05/18/2014 Dale Tr[facility] [id number] 05/18/20 14 05/18/2014 Dale Tr[facility] [id number] 05/18/20 14 05/18/2014 Dale Tracey MD [facility] [place] [id number] 05/18/20 14 05/18/2014 Dale Tracey MD [facility] [place] [id number] 05/18/20 14 05/18/2014 Dale Tracey MD [facility] [place] [id number] 05/18/20 14 05/18/2014 Dale Tr[facility] [id number] 05/18/20 14 05/18/2014 Dale Tracey MD [facility] [place] [id number] 05/18/20 14 05/18/2014 Dale Tracey [facility] [id number] 05/18/20 14 05/18/2014 Dale Tracey MD [facility] [place] [id number] 05/18/20 14 05/18/2014 Dale Tr[facility] [id number] 05/18/20 14 05/18/2014 Dale Tr[facility] [place] [facility] [place] [id number] 05/18/20 14 05/18/2014 Dale Tracey [place] [facility] [place] [id number] 05/18/20 14 05/18/2014 MD [facility] [place] [id number] 05/18/20 14 05/18/2014 Dale Tracey [facility] [id number] 05/18/20 14 05/18/2014 Dale Tr[facility] [id number] 05/18/20 14 05/18/2014 Dale Tr[facility] [place] [facility] [place] [id number] 05/18/20 14 05/18/2014 Dale Tr[facility] [id number] 05/18/20 14 05/18/2014 Dale [place] [place] [facility] [place] [id number] 05/18/20 14 05/18/2014 Dale Tr[facility] [id number] 05/18/20 14 05/18/2014 Dale Tr[facility] [id number] 05/18/20 14 05/18/2014 Dale Tracey MD [facility] [id number] 05/18/20 14 05/18/2014 Dale Tracey MD [facility] [id number] 05/18/20 14 05/18/2014 Dale Tracey MD [facility] [id number] 05/18/20 14 05/18/2014 MD hugh [place] [id number] 05/18/20 14 05/18/2014 Dale Tracey MD [facility] [id number] 05/18/20 14 05/18/2014 Dale Tracey MD [facility] [id number] 05/18/20 14 05/18/2014 Dale Tracey MD [facility] [id number] 05/18/20 14 05/18/2014 aDle Tracey MD [facility] [id number] 05/18/20 14 05/18/2014 Dale Tracey MD [facility] [id number] 05/18/20 14 05/18/2014 Dale Tracey MD [facility] [id number] 05/18/20 14 05/18/[address] [facility] [id number] 05/20/20 14 05/20/[address] Dale Tracey [address] [facility] [id number] 05/20/20 14 05/20/2014 Dale Tracey [facility] [id number] 05/20/20 14 05/20/2014 Dale Tracey MD [facility] [id number] 05/20/20 14 05/20/2014 Dale Tracey [facility] [id number] 05/20/20 14 05/20/2014 Dale Tracey [facility] [id number] 05/20/20 14 05/20/2014 Dale Tracey [facility] [id number] 05/20/20 14 05/20/2014 Dale Tracey [facility] [id number] 05/20/20 14 05/20/2014 Dale Tracey [facility] [id number] 05/20/20 14 05/20/2014 Dale Tracey MD [facility] [id number] 05/20/20 14 05/20/2014 Dale Tracey MD [facility] [id number] 05/20/20 14 05/20/2014 Dale Tracey MD [facility] [id number] 05/20/20 14 05/20/2014 Dale Tracey MD [facility] [id number] 05/20/20 14 05/20/2014 Dale Tracey MD [facility] [id number] 05/20/20 14 05/20/2014 Dale Tracey MD [facility] [id number] 05/20/20 14 05/20/2014 Dale Tracey MD [facility] [id number] 05/20/20 14 05/20/[address] [facility] [id number] 05/20/20 14 05/20/2014 Dale Tracey MD [facility] [id number] 05/20/20 14 05/20/2014 Dale Tracey MD [facility] [id number] 05/20/20 14 05/20/2014 Dale Tracey MD [facility] [id number] 05/20/20 14 05/20/2014 Dale Tracey MD [facility] [id number] 05/20/20 14 05/20/2014 Dale Tracey MD [facility] [id number] 05/20/20 14 05/20/2014 Dale Tracey MD [facility] [id number] 05/20/20 14 05/20/2014 Dale Tracey MD [facility] [id number] 05/20/20 14 05/20/2014 Dale Tracey MD [facility] [id number] 05/20/20 14 05/20/2014 Dale Tracey MD [facility] [id number] 05/20/20 14 05/20/2014 Dale Tracey MD [facility] [id number] 05/20/20 14 05/20/2014 Dale Tracey MD [facility] [id number] 05/20/20 14 05/20/2014 Dale Tracey MD [facility] [id number] 05/20/20 14 05/20/2014 Dale Tracey MD [facility] [id number] 05/20/20 14 05/20/2014 Dale Tracey MD [facility] [id number] 05/20/20 14 05/20/2014 Dale Tracey MD [facility] [id number] 05/20/20 14 05/20/2014 Dale Tracey MD [facility] [id number] 05/20/20 14 05/20/2014 Dale Tracey MD [facility] [id number] 05/20/20 14 05/20/2014 Dale Tracey MD [facility] [id number] 05/20/20 14 05/20/2014 Dale Tracey MD [facility] [id number] 05/20/20 14 05/20/2014 Dale Tracey MD [facility] [id number] 05/20/20 14 05/20/2014 Dale Tracey MD [facility] [id number] 05/20/20 14 05/20/2014 Dale Tracey MD [facility] [id number] 05/20/20 14 05/20/2014 Dale Tracey MD [facility] [id number] 05/20/20 14 05/20/2014 Dale Tracey MD [facility] [id number] 05/20/20 14 05/20/2014 Dale Tracey MD [facility] refill [id number] 05/26/2014 05/26/2014 Dale Tracey MD Hydrocod[facility] refill [id number] 05/26/2014 05/26/2014 Dale Tracey MD Hydrocod[facility] refill [id number] 05/26/2014 05/26/2014 Dale Tracey MD Hydrocodone refill [id number] 05/26/2014 05/26/2014 Dale Tracey MD Hydrocodone refill [id number] 05/26/2014 05/26/2014 Dale Tracey MD Hydrocodone refill [id number] 05/26/2014 05/26/2014 Dale Tracey MD Hydrocodone refill [id number] 05/26/2014 05/26/2014 Dale Tracey MD Hydrocodone refill [id number] 05/26/2014 05/26/2014 Dale Tarcey MD Hydrocodone refill [id number] 05/26/2014 05/26/2014 Dale Tracey MD Hydrocodone refill [id number] 05/26/2014 05/26/2014 Dale Tracey MD Hydrocodone refill [id number] 05/26/2014 05/26/2014 Dale Tracey MD Hydrocodone refill [id number] 05/26/2014 05/26/2014 Dale Tracey MD Hydrocodone refill [id number] 05/26/2014 05/26/2014 Dale Tracey MD Hydrocodone refill [id number] 05/26/2014 05/26/2014 Dale Tracey MD Hydrocodone refill [id number] 05/26/2014 05/26/2014 Dale Tracey MD Hydrocodone refill [id number] 05/26/2014 05/26/2014 Dale Tracey MD Hydrocodone refill [id number] 05/26/2014 05/26/2014 Dale Tracey MD Hydrocodone refill [id number] 05/26/2014 05/26/2014 Dale Tracey MD Hydrocodone refill [id number] 05/26/2014 05/26/2014 Dale Tracey MD Hydrocodone refill [id number] 05/26/2014 05/26/2014 Dale Tracey MD Hydrocodone refill [id number] 05/26/2014 05/26/2014 Dale Tracey MD Hydrocodone refill [id number] 05/26/2014 05/26/2014 Dale Tracey MD Hydrocodone refill [id number] 05/26/2014 05/26/2014 Dale Tracey MD Hydrocodone refill [id number] 05/26/2014 05/26/2014 Dale Tracey MD Hydrocodone refill [id number] 05/26/2014 05/26/2014 Dale Tracey MD Hydrocodone refill [id number] 05/26/2014 05/26/2014 Dale Tracey MD Hydrocodone refill [id number] 05/26/2014 05/26/2014 Dale Tracey MD Hydrocodone refill [id number] 05/26/2014 05/26/2014 Dale Tracey MD Hydrocodone refill [id number] 05/26/2014 05/26/2014 Dale Tracey MD Hydrocodone refill [id number] 05/26/2014 05/26/2014 Dale Tracey MD Hydrocodone refill [id number] 05/26/2014 05/26/2014 Dale Tracey MD Hydrocodone refill [id number] 05/26/2014 05/26/2014 Dale Tracey MD Hydrocodone refill [id number] 05/26/2014 05/26/2014 Dale Tracey MD Hydrocodone refill [id number] 05/26/2014 05/26/2014 Dale Tracey MD Hydrocodone refill [id number] 05/26/2014 05/26/2014 Dale Tracey MD Hydrocodone refill [id number] 05/26/2014 05/26/2014 Dale Tracey MD Hydrocodone refill [id number] 05/26/2014 05/26/2014 Dale Traecy MD Hydrocodone refill [id number] 05/26/2014 05/26/2014 Dale Tracey MD Hydrocodone refill [id number] 05/26/2014 05/26/2014 Dale Tracey MD Hydrocodone refill [id number] 05/26/2014 05/26/2014 Dale Tracey MD Hydrocodone refill [id number] 05/26/2014 05/26/2014 Dale Tracey MD lab order [id number] 05/27/20 14 05/27/2014 Dale Tracey MD lab order [id number] 05/27/20 14 05/27/2014 Dale Tracey MD lab order [id number] 05/27/20 14 05/27/2014 Dale Tracey MD lab order [id number] 05/27/20 14 05/27/2014 Dale Tracey MD lab order [id number] 05/27/20 14 05/27/2014 Dale Tracey MD lab order [id number] 05/27/20 14 05/27/2014 Dale Tracey MD lab order [id number] 05/27/20 14 05/27/2014 Dale Tracey MD lab order [id number] 05/27/20 14 05/27/2014 Dale Tracey MD lab order [id number] 05/27/20 14 05/27/2014 Dale Tracey MD lab order [id number] 05/27/20 14 05/27/2014 Dale Tracey MD lab order [id number] 05/27/20 14 05/27/2014 Dale Tracey MD lab order [id number] 05/27/20 14 05/27/2014 Dale Tracey MD lab order [id number] 05/27/20 14 05/27/2014 Dale Tracey MD lab order [id number] 05/27/20 14 05/27/2014 Dale Tracey MD lab order [id number] 05/27/20 14 05/27/2014 Dale Tracey MD lab order [id number] 05/27/20 14 05/27/2014 Dale Tracey MD lab order [id number] 05/27/20 14 05/27/2014 Dale Tracey MD lab order [id number] 05/27/20 14 05/27/2014 Dale Tracey MD lab order [id number] 05/27/20 14 05/27/2014 Dale Tracey MD lab order [id number] 05/27/20 14 05/27/2014 Dale Tracey MD lab order [id number] 05/27/20 14 05/27/2014 Dale Tracey MD lab order [id number] 05/27/20 14 05/27/2014 Dale Tracey MD lab order [id number] 05/27/20 14 05/27/2014 Dale Tracey MD lab order [id number] 05/27/20 14 05/27/2014 Dale Tracey MD lab order [id number] 05/27/20 14 05/27/2014 Dale Tracey MD lab order [id number] 05/27/20 14 05/27/2014 Dale Tracey MD lab order [id number] 05/27/20 14 05/27/2014 Dale Tracey MD lab order [id number] 05/27/20 14 05/27/2014 Dale Tracey MD lab order [id number] 05/27/20 14 05/27/2014 Dale Tracey MD lab order [id number] 05/27/20 14 05/27/2014 Dale Tracey MD lab order [id number] 05/27/20 14 05/27/2014 Dale Tracey MD lab order [id number] 05/27/20 14 05/27/2014 Dale Tracey MD lab order [id number] 05/27/20 14 05/27/2014 Dale Tracey MD lab order [id number] 05/27/20 14 05/27/2014 Dale Tracey MD lab order [id number] 05/27/20 14 05/27/2014 Dale Tracey MD lab order [id number] 05/27/20 14 05/27/2014 Dale Tracey MD lab order [id number] 05/27/20 14 05/27/2014 Dale Tracey MD lab order [id number] 05/27/20 14 05/27/2014 Dale Tracey MD lab order [id number] 05/27/20 14 05/27/2014 Dale Tracey MD lab order [id number] 05/27/20 14 05/27/2014 Dale Tracey MD lab order [id number] 05/27/20 14 05/27/2014 Dale Tracey MD F/U [id number] 07/07/20 14 07/07/2014 Dale Tracey MD F/U [id number] 07/07/20 14 07/07/2014 Dale Tracey MD F/U [id number] 07/07/20 14 07/07/2014 Dale Tracey MD F/U [id number] 07/07/20 14 07/07/2014 Dale Tracey MD F/U [id number] 07/07/20 14 07/07/2014 Dale Tracey MD F/U [id number] 07/07/20 14 07/07/2014 Dale Tracey MD F/U [id number] 07/07/20 14 07/07/2014 Dale Tracey MD F/U [id number] 07/07/20 14 07/07/2014 Dale Tracey MD F/U [id number] 07/07/20 14 07/07/2014 Dale Tracey MD F/U [id number] 07/07/20 14 07/07/2014 Dale Tracey MD F/U [id number] 07/07/20 14 07/07/2014 Dale Tracey MD F/U [id number] 07/07/20 14 07/07/2014 Dale Tracey MD F/U [id number] 07/07/20 14 07/07/2014 Dale Tracey MD F/U [id number] 07/07/20 14 07/07/2014 Dale Tracey MD F/U [id number] 07/07/20 14 07/07/2014 Dale Tracey MD F/U [id number] 07/07/20 14 07/07/2014 Dale Tracey MD F/U [id number] 07/07/20 14 07/07/2014 Dale Tracey MD F/U [id number] 07/07/20 14 07/07/2014 Dale Tracey MD F/U [id number] 07/07/20 14 07/07/2014 Dale Tracey MD F/U [id number] 07/07/20 14 07/07/2014 Dale Tracey MD F/U [id number] 07/07/20 14 07/07/2014 Dale Tracey MD F/U [id number] 07/07/20 14 07/07/2014 Dale Tracey MD F/U [id number] 07/07/20 14 07/07/2014 Dale Tracey MD F/U [id number] 07/07/20 14 07/07/2014 Dale Tracey MD F/U [id number] 07/07/20 14 07/07/2014 Dale Tracey MD F/U [id number] 07/07/20 14 07/07/2014 Dale Tracey MD F/U [id number] 07/07/20 14 07/07/2014 Dale Tracey MD F/U [id number] 07/07/20 14 07/07/2014 Dale Tracey MD F/U [id number] 07/07/20 14 07/07/2014 Dale Tracey MD F/U [id number] 07/07/20 14 07/07/2014 Dale Tracey MD F/U [id number] 07/07/20 14 07/07/2014 Dale Tracey MD F/U [id number] 07/07/20 14 07/07/2014 Dale Tracey MD F/U [id number] 07/07/20 14 07/07/2014 Dale Tracey MD F/U [id number] 07/07/20 14 07/07/2014 Dale Tracey MD F/U [id number] 07/07/20 14 07/07/2014 Dale Tracey MD F/U [id number] 07/07/20 14 07/07/2014 Dale Tracey MD [facility] [id number] 07/23/20 14 07/23/2014 Dale Tracey MD [facility] [id number] 07/23/20 14 07/23/2014 [facility] [id number] 07/23/20 14 07/23/2014 MD zeferino Cedeno [id number] 07/23/20 14 07/23/2014 MD zeferino Cedeno [id number] 07/23/20 14 07/23/2014 Dale Tracey MD [facility] [id number] 07/23/20 14 07/23/2014 Dale Tracey MD [facility] [id number] 07/23/20 14 07/23/2014 Dale Tracey MD [facility] [id number] 07/23/20 14 07/23/2014 Dale Tracey MD [facility] [id number] 07/23/20 14 07/23/2014 Dale Tracey MD [facility] [id number] 07/23/20 14 07/23/2014 Dale Tracey MD [facility] [id number] 07/23/20 14 07/23/2014 Dale Tracey MD [facility] [id number] 07/23/20 14 07/23/2014 Dale Tracey MD [facility] [id number] 07/23/20 14 07/23/2014 Dale Tracey MD [facility] [id number] 07/23/20 14 07/23/2014 Dale Tracey MD [facility] [id number] 07/23/20 14 07/23/2014 Dale Tracey MD [facility] [id number] 07/23/20 14 07/23/2014 Dale Tracey MD [facility] [id number] 07/23/20 14 07/23/2014 Dale Tracey MD [facility] [id number] 07/23/20 14 07/23/2014 Dale Tracey MD [facility] [id number] 07/23/20 14 07/23/2014 Dale Tracey MD [facility] [id number] 07/23/20 14 07/23/2014 Dale Tracey MD [facility] [id number] 07/23/20 14 07/23/2014 Dale Tracey MD [facility] [id number] 07/23/20 14 07/23/2014 Dale Tracey MD [facility] [id number] 07/23/20 14 07/23/2014 Dale Tracey MD [facility] [id number] 07/23/20 14 07/23/2014 Dale Tracey MD [facility] [id number] 07/23/20 14 07/23/2014 Dale Tracey MD [facility] [id number] 07/23/20 14 07/23/2014 Dale Tracey MD [facility] [id number] 07/23/20 14 07/23/2014 Dale Tracey MD [facility] [id number] 07/23/20 14 07/23/2014 Dale Tracey MD [facility] [id number] 07/23/20 14 07/23/2014 Dale Tracey MD [facility] [id number] 07/23/20 14 07/23/2014 Dale Tracey MD [facility] [id number] 07/23/20 14 07/23/2014 Dale Tracey MD [facility] [id number] 07/23/20 14 07/23/2014 Dale Tracey MD [facility] [id number] 07/23/20 14 07/23/2014 Dale Tracey MD [facility] [id number] 07/23/20 14 07/23/2014 Dale Tracey MD [facility] [id number] 07/23/20 14 07/23/2014 Dale Tracey MD [facility] [id number] 07/23/20 14 07/23/2014 Dale Tracey MD [facility] [id number] 07/29/20 14 07/29/2014 Dale Tracey MD [facility] [id number] 07/29/20 14 07/29/2014 Dale Tracey MD [facility] [id number] 07/29/20 14 07/29/2014 Dale Tracey MD [facility] [id number] 07/29/20 14 07/29/2014 Dale Tracey MD [facility] [id number] 07/29/20 14 07/29/2014 Dale Tracey MD [facility] [id number] 07/29/20 14 07/29/2014 Dale Tracey MD [facility] [id number] 07/29/20 14 07/29/2014 Dale Tracey MD [facility] [id number] 07/29/20 14 07/29/2014 Dale Tracey MD [facility] [id number] 07/29/20 14 07/29/2014 Dale Tracey MD [facility] [id number] 07/29/20 14 07/29/2014 Dale Tracey MD [facility] [id number] 07/29/20 14 07/29/2014 Dale Tracey MD [facility] [id number] 07/29/20 14 07/29/2014 Dale Tracey MD [facility] [id number] 07/29/20 14 07/29/2014 Dale Tracey MD [facility] [id number] 07/29/20 14 07/29/2014 Dale Tracey MD [facility] [id number] 07/29/20 14 07/29/2014 Dale Tracey MD [facility] [id number] 07/29/20 14 07/29/2014 Dale Tracey MD [facility] [id number] 07/29/20 14 07/29/2014 Dale Tracey MD [facility] [id number] 07/29/20 14 07/29/2014 Dale Tracey MD [facility] [id number] 07/29/20 14 07/29/2014 Dale Tracey MD [facility] [id number] 07/29/20 14 07/29/2014 Dale Tracey MD [facility] [id number] 07/29/20 14 07/29/2014 Dale Tracey MD [facility] [id number] 07/29/20 14 07/29/2014 Dale Tracey MD [facility] [id number] 07/29/20 14 07/29/2014 Dale Tracey MD [facility] [id number] 07/29/20 14 07/29/2014 Dale Tracey MD [facility] [id number] 07/29/20 14 07/29/2014 Dale Tracey MD [facility] [id number] 07/29/20 14 07/29/2014 Dale Tracey MD [facility] [id number] 07/29/20 14 07/29/2014 Dale Tracey MD [facility] [id number] 07/29/20 14 07/29/2014 Dale Tracey MD [facility] [id number] 07/29/20 14 07/29/2014 Dale Tracey MD [facility] [id number] 07/29/20 14 07/29/2014 Dale Tracey MD [facility] [id number] 07/29/20 14 07/29/2014 Dale Tracey MD [facility] [id number] 07/29/20 14 07/29/2014 Dale Tracey MD [facility] [id number] 07/29/20 14 07/29/2014 Dale Tracey MD [facility] [id number] 07/29/20 14 07/29/2014 Dale Tracey MD [facility] [id number] 07/29/20 14 07/29/2014 Dale Tracey MD [facility] [id number] 07/29/20 14 07/29/2014 Dale Tracey MD [facility]-- Hydrocodone [id number] 08/10/2014 08/10/2014 Dale Tracey MD [facility]-- Hydrocodone [id number] 08/10/2014 08/10/2014 Dale Tracey MD [facility]-- Hydrocodone [id number] 08/10/2014 08/10/2014 Dale Tracey MD [facility]-- Hydrocodone [id number] 08/10/2014 08/10/2014 Dale Tracey MD [facility]-- Hydrocodone [id number] 08/10/2014 08/10/2014 Dale Tracey MD [facility]-- Hydrocodone [id number] 08/10/2014 08/10/2014 Dale Tracey MD [facility]-- Hydrocodone [id number] 08/10/2014 08/10/2014 Dale Tracey MD [facility]-- Hydrocodone [id number] 08/10/2014 08/10/2014 Dale Tracey MD [facility]-- Hydrocodone [id number] 08/10/2014 08/10/2014 Dale Tracey MD [facility]-- Hydrocodone [id number] 08/10/2014 08/10/2014 Dale Tracey MD [facility]-- Hydrocodone [id number] 08/10/2014 08/10/2014 Dale Tracey MD [facility]-- Hydrocodone [id number] 08/10/2014 08/10/2014 Dale Tracey MD [facility]-- Hydrocodone [id number] 08/10/2014 08/10/2014 Dale Tracey MD [facility]-- Hydrocodone [id number] 08/10/2014 08/10/2014 Dale Tracey MD [facility]-- Hydrocodone [id number] 08/10/2014 08/10/2014 Dale Tracey MD [facility]-- Hydrocodone [id number] 08/10/2014 08/10/2014 Dale Tracey MD [facility]-- Hydrocodone [id number] 08/10/2014 08/10/2014 Dale Tracey MD [facility]-- Hydrocodone [id number] 08/10/2014 08/10/2014 Dale Tracey MD [facility]-- Hydrocodone [id number] 08/10/2014 08/10/2014 Dale Tracey MD [facility]-- Hydrocodone [id number] 08/10/2014 08/10/2014 Dale Tracey MD [facility]-- Hydrocodone [id number] 08/10/2014 08/10/2014 Dael Tracey MD [facility]-- Hydrocodone [id number] 08/10/2014 08/10/2014 Dale Tracey MD [facility]-- Hydrocodone [id number] 08/10/2014 08/10/2014 Dale Tracey MD [facility]-- Hydrocodone [id number] 08/10/2014 08/10/2014 Dale Tracey MD [facility]-- Hydrocodone [id number] 08/10/2014 08/10/2014 Dale Tracey MD [facility]-- Hydrocodone [id number] 08/10/2014 08/10/2014 Dale Tracey MD [facility]-- Hydrocodone [id number] 08/10/2014 08/10/2014 Dale Tracey MD [facility]-- Hydrocodone [id number] 08/10/2014 08/10/2014 Dale Tracey MD [facility]-- Hydrocodone [id number] 08/10/2014 08/10/2014 Dale Tracey MD [facility]-- Hydrocodone [id number] 08/10/2014 08/10/2014 Dale Tracey MD [facility]-- Hydrocodone [id number] 08/10/2014 08/10/2014 Dale Tracey MD [facility]-- Hydrocodone [id number] 08/10/2014 08/10/2014 Dale Tracey MD [facility]-- Hydrocodone [id number] 08/10/2014 08/10/2014 Dale Tracey MD [facility]-- Hydrocodone [id number] 08/10/2014 08/10/2014 Dale Tracey MD [facility]-- Hydrocodone [id number] 08/10/2014 08/10/2014 Dale Tracey MD [facility]-- Hydrocodone [id number] 08/10/2014 08/10/2014 Dale Tracey MD Refill- [facility] [id number] 08/23/20 14 08/23/2014 Dale Tracey MD Refill- [facility] [id number] 08/23/20 14 08/23/2014 Dale Tracey MD Refill- [facility] [id number] 08/23/20 14 08/23/2014 Dale Tracey MD Refill- [facility] [id number] 08/23/20 14 08/23/2014 Dale Tracey MD Refill- [facility] [id number] 08/23/20 14 08/23/2014 Dale Tracey MD Refill- [facility] [id number] 08/23/20 14 08/23/2014 Dale Tracey MD Refill- [facility] [id number] 08/23/20 14 08/23/2014 Dale Tracey MD Refill- [facility] [id number] 08/23/20 14 08/23/2014 Dale Tracey MD Refill- [facility] [id number] 08/23/20 14 08/23/2014 Dale Tracey MD Refill- [facility] [id number] 08/23/20 14 08/23/2014 Dale Tracey MD Refill- [facility] [id number] 08/23/20 14 08/23/2014 Dale Tracey MD Refill- [facility] [id number] 08/23/20 14 08/23/2014 Dale Tracey MD Refill- [facility] [id number] 08/23/20 14 08/23/2014 Dale Tracey MD Refill- [facility] [id number] 08/23/20 14 08/23/2014 Dale Tracey MD Refill- [facility] [id number] 08/23/20 14 08/23/2014 Dale Tracey MD Refill- [facility] [id number] 08/23/20 14 08/23/2014 Dale Tracey MD Refill- [facility] [id number] 08/23/20 14 08/23/2014 Dale Tracey MD Refill- [facility] [id number] 08/23/20 14 08/23/2014 Dale Tracey MD Refill- [facility] [id number] 08/23/20 14 08/23/2014 Dale Tracey MD Refill- [facility] [id number] 08/23/20 14 08/23/2014 Dale Tracey MD Refill- [facility] [id number] 08/23/20 14 08/23/2014 Dale Tracey MD Refill- [facility] [id number] 08/23/20 14 08/23/2014 Dale Tracey MD Refill- [facility] [id number] 08/23/20 14 08/23/2014 Dale Tracey MD Refill- [facility] [id number] 08/23/20 14 08/23/2014 Dale Tracey MD Refill- [facility] [id number] 08/23/20 14 08/23/2014 Dale Tracey MD Refill- [facility] [id number] 08/23/20 14 08/23/2014 Dale Tracey MD Refill- [facility] [id number] 08/23/20 14 08/23/2014 Dale Tracey MD Refill- [facility] [id number] 08/23/20 14 08/23/2014 Dale Tracey MD Refill- [facility] [id number] 08/23/20 14 08/23/2014 Dale Tracey MD Refill- [facility] [id number] 08/23/20 14 08/23/2014 Dale Tracey MD Refill- [facility] [id number] 08/23/20 14 08/23/2014 Dlae Tracey MD Refill- [facility] [id number] 08/23/20 14 08/23/2014 Dale Tracey MD F/U [id number] 10/06/20 14 10/06/2014 Dale Tracey MD F/U [id number] 10/06/20 14 10/06/2014 Dale Tracey MD F/U [id number] 10/06/20 14 10/06/2014 Dale Tracey MD F/U [id number] 10/06/20 14 10/06/2014 Dale Tracey MD F/U [id number] 10/06/20 14 10/06/2014 Dale Tracey MD F/U [id number] 10/06/20 14 10/06/2014 Dale Tracey MD F/U [id number] 10/06/20 14 10/06/2014 Dale Tracey MD F/U [id number] 10/06/20 14 10/06/2014 Dale Tracey MD F/U [id number] 10/06/20 14 10/06/2014 Dale Tracey MD F/U [id number] 10/06/20 14 10/06/2014 Dale Tracey MD F/U [id number] 10/06/20 14 10/06/2014 Dale Tracey MD F/U [id number] 10/06/20 14 10/06/2014 Dale Tracey MD F/U [id number] 10/06/20 14 10/06/2014 Dale Tracey MD F/U [id number] 10/06/20 14 10/06/2014 Dale Tracey MD F/U [id number] 10/06/20 14 10/06/2014 Dale Tracey MD F/U [id number] 10/06/20 14 10/06/2014 Dale Tracey MD F/U [id number] 10/06/20 14 10/06/2014 Dale Tracey MD F/U [id number] 10/06/20 14 10/06/2014 Dale Tracey MD F/U [id number] 10/06/20 14 10/06/2014 Dale Tracey MD F/U [id number] 10/06/20 14 10/06/2014 Dale Tracey MD F/U [id number] 10/06/20 14 10/06/2014 Dale Tracey MD F/U [id number] 10/06/20 14 10/06/2014 Dale Tracey MD F/U [id number] 10/06/20 14 10/06/2014 Dale Tracey MD F/U [id number] 10/06/20 14 10/06/2014 Dale Tracey MD F/U [id number] 10/06/20 14 10/06/2014 Dale Tracey MD [facility]/U [id number] 10/06/20 14 10/06/2014 Dale Tracey MD F/U [id number] 10/06/20 14 10/06/2014 Dale Tracey MD F/U [id number] 10/06/20 14 10/06/2014 Dale Tracey MD F/U [id number] 10/06/20 14 10/06/2014 Dale Tracey MD F/U [id number] 10/06/20 14 10/06/2014 Dale Tracey MD ref req [facility] [id number] 10/14/20 14 10/14/2014 aDle Tracey MD ref req [facility] [id number] 10/14/20 14 10/14/2014 [id number] 10/14/20 14 10/14/2014 [facility] [id number] 10/14/20 14 10/14/2014 Dale Tr[facility] [id number] 10/14/20 14 10/14/2014 [facility] Tr[facility] [id number] 10/14/20 14 10/14/2014 [facility] Tr[facility] [id number] 10/14/20 14 10/14/2014 Dael Tracey MD ref req [facility] [id number] 10/14/20 14 10/14/2014 Dale Tracey MD ref req [facility] [id number] 10/14/20 14 10/14/2014 Dale Tracey MD ref req [facility] [id number] 10/14/20 14 10/14/2014 Dale Tracey MD ref req [facility] [id number] 10/14/20 14 10/14/2014 Dale Tracey MD ref req [facility] [id number] 10/14/20 14 10/14/2014 [facility] [id number] 10/14/20 14 10/14/2014 Dale Tracey MD ref req [facility] [id number] 10/14/20 14 10/14/2014 Dale Tracey MD ref req [facility] [id number] 10/14/20 14 10/14/2014 Dale Tracey MD ref req [facility] [id number] 10/14/20 14 10/14/2014 Dale Tr[facility] [id number] 10/14/20 14 10/14/2014 Dale Tr[facility] [id number] 10/14/20 14 10/14/2014 Dale Tr[facility] [id number] 10/14/20 14 10/14/2014 Dale Tracey MD ref req [facility] [id number] 10/14/20 14 10/14/2014 Dale Tracey [facility] [id number] 10/14/20 14 10/14/2014 Dale Tracey [facility] [id number] 10/14/20 14 10/14/2014 Dale Tracey MD ref req [facility] [id number] 10/14/20 14 10/14/2014 Dale Tracey MD ref req [facility] [id number] 10/14/20 14 10/14/2014 Dale Tracey MD ref req [facility] [id number] 10/14/20 14 10/14/2014 Dale Tracey MD ref req [facility] [id number] 10/14/20 14 10/14/2014 Dale Tracey MD ref req [facility] [id number] 10/14/20 14 10/14/2014 Dale Tracey MD ref req [facility] [id number] 10/14/20 14 10/14/2014 Dale Tracey MD ref req [facility] [id number] 10/14/20 14 10/14/2014 Dale Tracey MD ref req [facility] [id number] 10/14/20 14 10/14/2014 Dale Tracey MD ref req [facility] [id number] 10/14/20 14 10/14/2014 Dale Tracey MD [facility] F/U [id number] 10/26/20 14 10/26/2014 Dale Tracey MD [facility] F/U [id number] 10/26/20 14 10/26/2014 Dale Tracey MD [facility] F/U [id number] 10/26/20 14 10/26/2014 Dale Tracey MD [facility] F/U [id number] 10/26/20 14 10/26/2014 Dale Tracey MD [facility] F/U [id number] 10/26/20 14 10/26/2014 Dale Tracey MD [facility] F/U [id number] 10/26/20 14 10/26/2014 Dale Tracey MD [facility] F/U [id number] 10/26/20 14 10/26/2014 Dale Tracey MD [facility] F/U [id number] 10/26/20 14 10/26/2014 Dale Tracey MD [facility] F/U [id number] 10/26/20 14 10/26/2014 Dale Tracey MD [facility] F/U [id number] 10/26/20 14 10/26/2014 Dale Tracey MD [facility] F/U [id number] 10/26/20 14 10/26/2014 Dale Tracey MD [place] F/U [id number] 10/26/20 14 10/26/2014 Dale Tracey MD [facility] F/U [id number] 10/26/20 14 10/26/2014 Dale Tracey MD [facility] F/U [id number] 10/26/20 14 10/26/2014 Dale Tracey MD [facility] F/U [id number] 10/26/20 14 10/26/2014 Dale Tracey MD [facility] F/U [id number] 10/26/20 14 10/26/2014 Dale Tracey MD [facility] F/U [id number] 10/26/20 14 10/26/2014 Dale Tracey MD [facility] F/U [id number] 10/26/20 14 10/26/2014 Dale Tracey MD [facility] F/U [id number] 10/26/20 14 10/26/2014 Dale Tracey MD [place] F/U [id number] 10/26/20 14 10/26/2014 Dale Tracey MD [facility] F/U [id number] 10/26/20 14 10/26/2014 Dale Tracey MD [facility] F/U [id number] 10/26/20 14 10/26/2014 Dale Tracey MD [facility] F/U [id number] 10/26/20 14 10/26/2014 Dale Tracey MD [facility] F/U [id number] 10/26/20 14 10/26/2014 Dale Tracey MD [facility] F/U [id number] 10/26/20 14 10/26/2014 Dale Tracey MD [facility] F/U [id number] 10/26/20 14 10/26/2014 Dale Tracey MD [facility] F/U [id number] 10/26/20 14 10/26/2014 Dale Tracey MD [facility] F/U [id number] 10/26/20 14 10/26/2014 Dale Tracey MD [facility] F/U [id number] 10/26/20 14 10/26/2014 Dale Tracey MD [facility] F/U [id number] 10/26/20 14 10/26/2014 Dale Tracey MD F/U [id number] 01/19/20 15 01/18/2015 Dale Tracey MD F/U [id number] 01/19/20 15 01/18/2015 Dale Tracey MD [facility]/U [id number] 01/19/20 15 01/18/2015 Dale Tracey MD F/U [id number] 01/19/20 15 01/18/2015 Dale Tracey MD F/U [id number] 01/19/20 15 01/18/2015 Dale Tracey MD F/U [id number] 01/19/20 15 01/18/2015 Dale Tracey MD F/U [id number] 01/19/20 15 01/18/2015 Dale Tracey MD [facility]/U [id number] 01/19/20 15 01/18/2015 Dale Tracey MD F/U [id number] 01/19/20 15 01/18/2015 Dale Tracey MD F/U [id number] 01/19/20 15 01/18/2015 Dale Tracey MD F/U [id number] 01/19/20 15 01/18/2015 Dale Tracey MD F/U [id number] 01/19/20 15 01/18/2015 Dale Tracey MD F/U [id number] 01/19/20 15 01/18/2015 Dale Tracey MD F/U [id number] 01/19/20 15 01/18/2015 Dale Tracey MD F/U [id number] 01/19/20 15 01/18/2015 Dale Tracey MD F/U [id number] 01/19/20 15 01/18/2015 Dale Tracey MD F/U [id number] 01/19/20 15 01/18/2015 Dale Tracey MD F/U [id number] 01/19/20 15 01/18/2015 Dale Tracey MD F/U [id number] 01/19/20 15 01/18/2015 Dale Tracey MD F/U [id number] 01/19/20 15 01/18/2015 Dale Tracey MD F/U [id number] 01/19/20 15 01/18/2015 Dale Tracey MD F/U [id number] 01/19/20 15 01/18/2015 Dale Tracey MD F/U [id number] 01/19/20 15 01/18/2015 Dale Tracey MD F/U [id number] 01/19/20 15 01/18/2015 Dlae Tracey MD F/U [id number] 01/19/20 15 01/18/2015 Dale Tracey MD F/U [id number] 01/19/20 15 01/18/2015 Dale Tracey MD F/U [id number] 01/19/20 15 01/18/2015 Dale Tracey MD F/U [id number] 01/19/20 15 01/18/2015 Dale Tracey MD F/U [id number] 01/19/20 15 01/18/2015 Dale Tracey MD F/U [id number] 01/19/20 15 01/18/2015 Dale Tracey MD RX Coverage Issue [id number] 02/02/2015 02/02/2015 Dale Tracey MD RX Coverage Issue [id number] 02/02/2015 02/02/2015 Dale Tracey MD RX Coverage Issue [id number] 02/02/2015 02/02/2015 Dale Tracey MD RX Coverage Issue [id number] 02/02/2015 02/02/2015 Dale Tracey MD RX Coverage Issue [id number] 02/02/2015 02/02/2015 Dale Tracey MD RX Coverage Issue [id number] 02/02/2015 02/02/2015 Dale Tracey MD RX Coverage Issue [id number] 02/02/2015 02/02/2015 Dale Tracey MD RX Coverage Issue [id number] 02/02/2015 02/02/2015 Dale Tracey MD RX Coverage Issue [id number] 02/02/2015 02/02/2015 Dale Tracey MD RX Coverage Issue [id number] 02/02/2015 02/02/2015 Dale Tracey MD RX Coverage Issue [id number] 02/02/2015 02/02/2015 Dale Tracey MD RX Coverage Issue [id number] 02/02/2015 02/02/2015 Dale Tracey MD RX Coverage Issue [id number] 02/02/2015 02/02/2015 Dale Tracey MD RX Coverage Issue [id number] 02/02/2015 02/02/2015 Dale Tracey MD RX Coverage Issue [id number] 02/02/2015 02/02/2015 Dale Tracey MD RX Coverage Issue [id number] 02/02/2015 02/02/2015 Dale Tracey MD RX Coverage Issue [id number] 02/02/2015 02/02/2015 Dale Tracey MD RX Coverage Issue [id number] 02/02/2015 02/02/2015 Dale Tracey MD RX Coverage Issue [id number] 02/02/2015 02/02/2015 Dale Tracey MD RX Coverage Issue [id number] 02/02/2015 02/02/2015 Dale Tracey MD RX Coverage Issue [id number] 02/02/2015 02/02/2015 Dale Tracey MD RX Coverage Issue [id number] 02/02/2015 02/02/2015 Dale Tracey MD RX Coverage Issue [id number] 02/02/2015 02/02/2015 Dale Tracey MD RX Coverage Issue [id number] 02/02/2015 02/02/2015 Dale Tracey MD RX Coverage Issue [id number] 02/02/2015 02/02/2015 Dale Tracey MD RX Coverage Issue [id number] 02/02/2015 02/02/2015 Dale Tracey MD RX Coverage Issue [id number] 02/02/2015 02/02/2015 Dale Tracey MD RX Coverage Issue [id number] 02/02/2015 02/02/2015 Dale Tracey MD RX Coverage Issue [id number] 02/02/2015 02/02/2015 Dale Tracey MD RX Coverage Issue [id number] 02/02/2015 02/02/2015 Dale Tracey MD Refill- Humira [id number] 02/08/20 15 02/07/2015 Dale Tracey MD Refill- Humira [id number] 02/08/20 15 02/07/2015 Dale Tracey MD Refill- Humira [id number] 02/08/20 15 02/07/2015 Dale Tracey MD Refill- Humira [id number] 02/08/20 15 02/07/2015 Dale Tracey MD Refill- Humira [id number] 02/08/20 15 02/07/2015 Dale Tracey MD Refill- Humira [id number] 02/08/20 15 02/07/2015 Dale Tracey MD Refill- Humira [id number] 02/08/20 15 02/07/2015 Dale Tracey MD Refill- Humira [id number] 02/08/20 15 02/07/2015 Dale Tracey MD Refill- Humira [id number] 02/08/20 15 02/07/2015 Dale Tracey MD Refill- Humira [id number] 02/08/20 15 02/07/2015 Dale Tracey MD Refill- Humira [id number] 02/08/20 15 02/07/2015 Dale Tracey MD Refill- Humira [id number] 02/08/20 15 02/07/2015 Dale Tracey MD Refill- Humira [id number] 02/08/20 15 02/07/2015 Dale Tracey MD Refill- Humira [id number] 02/08/20 15 02/07/2015 Dale Tracey MD Refill- Humira [id number] 02/08/20 15 02/07/2015 Dale Tracey MD Refill- Humira [id number] 02/08/20 15 02/07/2015 Dale Tracey MD Refill- Humira [id number] 02/08/20 15 02/07/2015 Dale Tracey MD Refill- Humira [id number] 02/08/20 15 02/07/2015 Dale Tracey MD Refill- Humira [id number] 02/08/20 15 02/07/2015 Dale Tracey MD Refill- Humira [id number] 02/08/20 15 02/07/2015 Dale Tracey MD Refill- Humira [id number] 02/08/20 15 02/07/2015 Dale Tracey MD Refill- Humira [id number] 02/08/20 15 02/07/2015 Dale Tracey MD Refill- Humira [id number] 02/08/20 15 02/07/2015 Dale Tracey MD Refill- Humira [id number] 02/08/20 15 02/07/2015 Dale Tracey MD Refill- Humira [id number] 02/08/20 15 02/07/2015 Dale Tracey MD Refill- Humira [id number] 02/08/20 15 02/07/2015 Dale Tracey MD Refill- Humira [id number] 02/08/20 15 02/07/2015 Dale Tracey MD Refill- Humira [id number] 02/08/20 15 02/07/2015 Dale Tracey MD Refill- Humira [id number] 02/08/20 15 02/07/2015 Dale Tracey MD Refill- [facility] [id number] 02/08/20 15 02/07/2015 Dale Tracey MD [facility] [id number] 02/08/2015 02/08/2015 Dale Tracey MD [facility] [id number] 02/08/2015 02/08/2015 Dale Tracey MD [facility] [id number] 02/08/2015 02/08/2015 Dale Tracey MD [facility] [id number] 02/08/2015 02/08/2015 Dale Tracey MD [facility] [id number] 02/08/2015 02/08/2015 Dale Tracey MD [facility] [id number] 02/08/2015 02/08/2015 Dale Tracey MD [facility] [id number] 02/08/2015 02/08/2015 Dale Tracey MD [facility] [id number] 02/08/2015 02/08/2015 Dale Tracey MD [facility] [id number] 02/08/2015 02/08/2015 Dale Tracey MD [facility] [id number] 02/08/2015 02/08/2015 Dale Tracey MD [facility] [id number] 02/08/2015 02/08/2015 Dale Tracey MD [facility] [id number] 02/08/2015 02/08/2015 Dale Tracey MD [facility] [id number] 02/08/2015 02/08/2015 Dale Tracey MD [facility] [id number] 02/08/2015 02/08/2015 Dale Tracey MD [facility] [id number] 02/08/2015 02/08/2015 Dale Tracey MD [facility] [id number] 02/08/2015 02/08/2015 Dale Tracey MD [facility] [id number] 02/08/2015 02/08/2015 Dale Tracey MD [facility] [id number] 02/08/2015 02/08/2015 Dale Tracey MD [facility] [id number] 02/08/2015 02/08/2015 Dale Tracey MD [facility] [id number] 02/08/2015 02/08/2015 Dale Tracey MD [facility] [id number] 02/08/2015 02/08/2015 Dale Tracey MD [facility] [id number] 02/08/2015 02/08/2015 Dale Tracey MD [facility] [id number] 02/08/2015 02/08/2015 Dale Tracey MD [facility] [id number] 02/08/2015 02/08/2015 Dale Tracey MD [facility] [id number] 02/08/2015 02/08/2015 Dale Tracey MD [facility] [id number] 02/08/2015 02/08/2015 Dale Tracey MD [facility] [id number] 02/08/2015 02/08/2015 Dale Tracey MD [facility] [id number] 02/08/2015 02/08/2015 Dale Tracey MD [facility] [id number] 02/08/2015 02/08/2015 Dale Tracey MD [facility] [id number] 02/08/2015 02/08/2015 Dale Tracey MD RX SEND FAILURE [id number] 02/16/20 15 02/15/2015 Dale Tracey MD RX SEND FAILURE [id number] 02/16/20 15 02/15/2015 Dale Tracey MD RX SEND FAILURE [id number] 02/16/20 15 02/15/2015 Dale Tracey MD RX SEND FAILURE [id number] 02/16/20 15 02/15/2015 Dale Tracey MD RX SEND FAILURE [id number] 02/16/20 15 02/15/2015 Dale Tracey MD RX SEND FAILURE [id number] 02/16/20 15 02/15/2015 Dale Tracey MD RX SEND FAILURE [id number] 02/16/20 15 02/15/2015 Dale Tracey MD RX SEND FAILURE [id number] 02/16/20 15 02/15/2015 Dale Tracey MD RX SEND FAILURE [id number] 02/16/20 15 02/15/2015 Dale Tracey MD RX SEND FAILURE [id number] 02/16/20 15 02/15/2015 Dale Tracey MD RX SEND FAILURE [id number] 02/16/20 15 02/15/2015 Dale Tracey MD RX SEND FAILURE [id number] 02/16/20 15 02/15/2015 Dale Tracey MD RX SEND FAILURE [id number] 02/16/20 15 02/15/2015 Dale Tracey MD RX SEND FAILURE [id number] 02/16/20 15 02/15/2015 Dale Tracey MD RX SEND FAILURE [id number] 02/16/20 15 02/15/2015 Dale Tracey MD RX SEND FAILURE [id number] 02/16/20 15 02/15/2015 Dale Tracey MD RX SEND FAILURE [id number] 02/16/20 15 02/15/2015 Dale Tracey MD RX SEND FAILURE [id number] 02/16/20 15 02/15/2015 Dale Tracey MD RX SEND FAILURE [id number] 02/16/20 15 02/15/2015 Dale Tracey MD RX SEND FAILURE [id number] 02/16/20 15 02/15/2015 Dale Tracey MD RX SEND FAILURE [id number] 02/16/20 15 02/15/2015 Dale Tracey MD RX SEND FAILURE [id number] 02/16/20 15 02/15/2015 Dale Tracey MD RX SEND FAILURE [id number] 02/16/20 15 02/15/2015 Dale Tracey MD RX SEND FAILURE [id number] 02/16/20 15 02/15/2015 Dale Tracey MD RX SEND FAILURE [id number] 02/16/20 15 02/15/2015 Dale Tracey MD RX SEND FAILURE [id number] 02/16/20 15 02/15/2015 Dale Tracey MD RX SEND FAILURE [id number] 02/16/20 15 02/15/2015 Dale Tracey MD RX SEND FAILURE [id number] 02/16/20 15 02/15/2015 Dale Tracey MD RX SEND FAILURE [id number] 02/16/20 15 02/15/2015 Dale Tracey MD RX SEND FAILURE [id number] 02/16/20 15 02/15/2015 Dale Tracey MD [facility] RX FAILURE [id number] 02/18/20 15 02/17/2015 Dale Tracey MD [facility] RX FAILURE [id number] 02/18/20 15 02/17/2015 Dale Tracey MD [facility] RX FAILURE [id number] 02/18/20 15 02/17/2015 Dale Tracey MD [facility] RX FAILURE [id number] 02/18/20 15 02/17/2015 Dale Tracey MD [facility] RX FAILURE [id number] 02/18/20 15 02/17/2015 Dale Tracey MD [facility] RX FAILURE [id number] 02/18/20 15 02/17/2015 Dale Tracey MD [facility] RX FAILURE [id number] 02/18/20 15 02/17/2015 Dale Tracey MD [facility] RX FAILURE [id number] 02/18/20 15 02/17/2015 Dale Tracey MD [facility] RX FAILURE [id number] 02/18/20 15 02/17/2015 Dale Tracey MD [facility] RX FAILURE [id number] 02/18/20 15 02/17/2015 Dale Tracey MD [facility] RX FAILURE [id number] 02/18/20 15 02/17/2015 Dale Tracey MD [facility] RX FAILURE [id number] 02/18/20 15 02/17/2015 Dale Tracey MD [facility] RX FAILURE [id number] 02/18/20 15 02/17/2015 Dale Tracey MD [facility] RX FAILURE [id number]-p4w0bt11j498 02/18/20 15 02/17/2015 Dale Tracey MD [facility] RX FAILURE [id number] 02/18/20 15 02/17/2015 Dale Tracey MD [facility] RX FAILURE [id number] 02/18/20 15 02/17/2015 Dale Tracey MD [facility] RX FAILURE [id number] 02/18/20 15 02/17/2015 MD ZEFERINO C[facility] RX FAILURE [id number] 02/18/20 15 02/17/2015 Dale Tracey MD [facility] RX FAILURE [id number] 02/18/20 15 02/17/2015 Dale Tracey MD [facility] RX FAILURE [id number] 02/18/20 15 02/17/2015 Dale Tracey MD [facility] RX FAILURE [id number] 02/18/20 15 02/17/2015 Dale Tracey MD [facility] RX FAILURE [id number] 02/18/20 15 02/17/2015 Dale Tracey MD [facility] RX FAILURE [id number] 02/18/20 15 02/17/2015 Dale Tracey MD [facility] RX FAILURE [id number]-[id number] 02/18/20 15 02/17/2015 Dale Tracey MD [facility] RX FAILURE [id number]-[id number] 02/18/20 15 02/17/2015 Dale Tracey MD [facility] RX FAILURE [id number] 02/18/20 15 02/17/2015 Dale Tracey MD [facility] RX FAILURE [id number] 02/18/20 15 02/17/2015 Dale Tracey MD [facility] RX FAILURE [id number] 02/18/20 15 02/17/2015 [facility] [id number] 02/18/20 15 02/17/2015 Dale Tr[facility] [id number] 02/18/20 15 02/17/2015 Dale Tracey MD F/U [id number] 02/19/20 15 02/18/2015 Dale Tracey MD F/U [id number] 02/19/20 15 02/18/2015 Dale Tracey MD F/U [id number] 02/19/20 15 02/18/2015 Dale Tracey MD F/U [id number]-[id number] 02/19/20 15 02/18/2015 Dale Tracey MD F/U [id number]-p7wcb4e775tg 02/19/20 15 02/18/2015 Dale Tracey MD F/U [id number] 02/19/20 15 02/18/2015 Dale Tracey MD F/U [id number] 02/19/20 15 02/18/2015 Dale Tracey MD F/U [id number] 02/19/20 15 02/18/2015 Dale Tracey MD F/U [id number] 02/19/20 15 02/18/2015 Dale Tracey MD F/U [id number] 02/19/20 15 02/18/2015 Dale Tracey MD F/U [id number] 02/19/20 15 02/18/2015 Dale Tracey MD [facility]/U [id number] 02/19/20 15 02/18/2015 Dale Tracey MD [facility]/U [id number] 02/19/20 15 02/18/2015 Dale Tracey MD [facility]/U [id number] 02/19/20 15 02/18/2015 Dale Tracey MD F/U [id number] 02/19/20 15 02/18/2015 Dale Tracey MD F/U [id number] 02/19/20 15 02/18/2015 Dale Tracey MD F/U [id number] 02/19/20 15 02/18/2015 Dale Tracey MD F/U [id number] 02/19/20 15 02/18/2015 Dale Tracey MD F/U [id number] 02/19/20 15 02/18/2015 Dale Tracey MD F/U [id number] 02/19/20 15 02/18/2015 Dale Tracey MD F/U [id number] 02/19/20 15 02/18/2015 Dale Tracey MD F/U [id number] 02/19/20 15 02/18/2015 Dale Tracey MD F/U [id number] 02/19/20 15 02/18/2015 Dale Tracey MD F/U [id number] 02/19/20 15 02/18/2015 Dale Tracey MD F/U [id number] 02/19/20 15 02/18/2015 Dale Tracey MD F/U [id number] 02/19/20 15 02/18/2015 Dale Tracey MD Chest XR [id number] 02/26/20 15 02/25/2015 aDle Tracey MD Chest XR [id number] 02/26/20 15 02/25/2015 Dale Tracey MD Chest XR [id number] 02/26/20 15 02/25/2015 Dale Tracey MD Chest XR [id number] 02/26/20 15 02/25/2015 Dale Tracey MD Chest XR [id number] 02/26/20 15 02/25/2015 Dale Tracey MD Chest XR [id number] 02/26/20 15 02/25/2015 Dale Tracey MD Chest XR [id number] 02/26/20 15 02/25/2015 Dale Tracey MD Chest XR [id number] 02/26/20 15 02/25/2015 Dale Tracey MD Chest XR [id number] 02/26/20 15 02/25/2015 Dale Tracey MD Chest XR [id number] 02/26/20 15 02/25/2015 Dale Tracey MD Chest XR [id number] 02/26/20 15 02/25/2015 Dale Tracey MD Chest XR [id number] 02/26/20 15 02/25/2015 Dale Tracey MD Chest XR [id number] 02/26/20 15 02/25/2015 Dale Tracey MD Chest XR [id number] 02/26/20 15 02/25/2015 Dale Tracey MD Chest XR [id number] 02/26/20 15 02/25/2015 Dale Tracey MD Chest XR [id number] 02/26/20 15 02/25/2015 Dale Tracey MD Chest XR [id number] 02/26/20 15 02/25/2015 Dale Tracey MD Chest XR [id number] 02/26/20 15 02/25/2015 Dale Tracey MD Chest XR [id number] 02/26/20 15 02/25/2015 Dale Tracey MD Chest XR [id number] 02/26/20 15 02/25/2015 Dale Tracey MD Chest XR [id number] 02/26/20 15 02/25/2015 Dale Tracey MD Chest XR [id number] 02/26/20 15 02/25/2015 Dale Tracey MD Chest XR [id number] 02/26/20 15 02/25/2015 Dale Tracey MD Chest XR [id number] 02/26/20 15 02/25/2015 Dale Tracey MD Chest XR [id number] 02/26/20 15 02/25/2015 Dale Tracey MD Chest XR [id number] 02/26/20 15 02/25/2015 Dale Tracey MD Chest XR [id number] 02/26/20 15 02/25/2015 Dale Tracey MD Chest XR [id number] 02/26/20 15 02/25/2015 Dale Tracey MD Chest XR [id number] 02/26/20 15 02/25/2015 Dale Tracey MD Chest XR [id number] 02/26/20 15 02/25/2015 Dale Tracey [facility] [id number] Ricky Tracey 02/25/2015 02/26/2015 [facility] Garcia Tracey MD Unknown [id number] 05/26/20 15 05/26/2015 Dale Tracey MD Unknown [id number] 05/26/20 15 05/26/2015 Dale Tracey MD Unknown [id number] 05/26/20 15 05/26/2015 Dale Tracey MD Unknown [id number] 05/26/20 15 05/26/2015 Dale Tracey MD Unknown [id number] 05/26/20 15 05/26/2015 Dale Tracey MD Unknown [id number] 05/26/20 15 05/26/2015 Dale Tracey MD Unknown [id number] 05/26/20 15 05/26/2015 Dale Tracey MD Unknown [id number] 05/26/20 15 05/26/2015 Dale Tracey MD Unknown [id number] 05/26/20 15 05/26/2015 Dale Tracey MD Unknown [id number] 05/26/20 15 05/26/2015 Dale Tracey MD Unknown [id number] 05/26/20 15 05/26/2015 Dale Tracey MD Unknown [id number] 05/26/20 15 05/26/2015 Dale Tracey MD Unknown [id number] 05/26/20 15 05/26/2015 Dale Tracey MD Unknown [id number] 05/26/20 15 05/26/2015 Dale Tracey MD Unknown [id number] 05/26/20 15 05/26/2015 Dale Tracey MD Unknown [id number] 05/26/20 15 05/26/2015 Dale Tracey MD Unknown [id number] 05/26/20 15 05/26/2015 Dale Tracey MD RX request-- [facility] [id number] 05/26/2015 05/26/2015 Dale Tracey MD RX request-- [facility] [id number] 05/26/2015 05/26/2015 Dale Tracey MD RX request-- [facility] [id number] 05/26/2015 05/26/2015 Dale Tracey MD RX request-- [facility] [id number] 05/26/2015 05/26/2015 Dale Tracey MD RX request-- [facility] [id number] 05/26/2015 05/26/2015 Dale Tracey MD RX request-- [facility] [id number] 05/26/2015 05/26/2015 Dale Tracey MD RX request-- [facility] [id number] 05/26/2015 05/26/2015 Dale Tracey MD RX request-- [facility] [id number] 05/26/2015 05/26/2015 Dale Tracey MD RX request-- [facility] [id number] 05/26/2015 05/26/2015 Dale Tracey MD RX request-- [facility] [id number] 05/26/2015 05/26/2015 Dale Tracey MD RX request-- [facility] [id number] 05/26/2015 05/26/2015 Dale Tracey MD RX request-- [facility] [id number] 05/26/2015 05/26/2015 Dale Tracey MD RX request-- [facility] [id number] 05/26/2015 05/26/2015 Dale Tracey MD RX request-- [facility] [id number] 05/26/2015 05/26/2015 Dale Tracey MD RX request-- [facility] [id number] 05/26/2015 05/26/2015 Dale Tracey MD RX request-- [facility] [id number] 05/26/2015 05/26/2015 Dale Tracey MD RX request-- [facility] [id number] 05/26/2015 05/26/2015 Dale Tracey MD RX request-- [facility] [id number] 05/26/2015 05/26/2015 Dale Tracey MD RX request-- [facility] [id number] 05/26/2015 05/26/2015 Dale Tracey MD RX request-- [facility] [id number] 05/26/2015 05/26/2015 Dale Tracey MD Unknown [id number] 05/26/20 15 05/26/2015 Dale Tracey MD Unknown [id number] 05/26/20 15 05/26/2015 Dale Tracey MD Unknown [id number] 05/26/20 15 05/26/2015 Dale Tracey MD Unknown [id number] 05/26/20 15 05/26/2015 Dale Tracey MD Unknown [id number] 05/26/20 15 05/26/2015 Dale Tracey MD Unknown [id number] 05/26/20 15 05/26/2015 Dale Tracey MD Unknown [id number] 05/26/20 15 05/26/2015 Dale Tracey MD Unknown [id number] 05/26/20 15 05/26/2015 Dale Tracey MD Unknown [id number] 05/26/20 15 05/26/2015 Dale Tracey MD Unknown [id number] 05/26/20 15 05/26/2015 Dale Tracey MD RX request-- [facility] [id number] 05/26/2015 05/26/2015 Dale Tracey MD RX request-- [facility] [id number] 05/26/2015 05/26/2015 Dale Tracey MD RX request-- [facility] [id number] 05/26/2015 05/26/2015 Dale Tracey MD RX request-- [facility] [id number] 05/26/2015 05/26/2015 Dale Tracey MD RX request-- [facility] [id number] 05/26/2015 05/26/2015 Dale Tracey MD RX request-- [facility] [id number] 05/26/2015 05/26/2015 Dale Tracey MD RX request-- [facility] [id number] 05/26/2015 05/26/2015 Dale Tracey MD RX request-- [facility] [id number] 05/26/2015 05/26/2015 Dale Tracey MD RX request-- [facility] [id number] 05/26/2015 05/26/2015 Dale Tracey MD RX request-- [facility] [id number] 05/26/2015 05/26/2015 Dale Tracey MD RX Request-- [place] [id number] 05/27/20 15 05/27/2015 Dale Tracey MD RX Request-- [place] [id number] 05/27/20 15 05/27/2015 Dale Tracey MD RX Request-- [place] [id number] 05/27/20 15 05/27/2015 Dale Tracey MD RX Request-- [place] [id number] 05/27/20 15 05/27/2015 Dale Tracey MD RX Request-- [place] [id number] 05/27/20 15 05/27/2015 Dale Tracey MD RX Request-- [place] [id number] 05/27/20 15 05/27/2015 Dale Tracey MD RX Request-- [place] [id number] 05/27/20 15 05/27/2015 Dale Tracey MD RX Request-- [place] [id number] 05/27/20 15 05/27/2015 Dale Tracey MD RX Request-- [place] [id number] 05/27/20 15 05/27/2015 Dale Tracey MD RX Request-- [place] [id number] 05/27/20 15 05/27/2015 Dale Tracey MD RX Request-- [place] [id number] 05/27/20 15 05/27/2015 Dale Tracey MD RX Request-- [place] [id number] 05/27/20 15 05/27/2015 Dale Tracey MD RX Request-- [place] [id number] 05/27/20 15 05/27/2015 Dale Tracey MD RX Request-- [place] [id number] 05/27/20 15 05/27/2015 Dale Tracey MD RX Request-- [place] [id number] 05/27/20 15 05/27/2015 Dale Tracey MD RX Request-- [place] [id number] 05/27/20 15 05/27/2015 Dale Tracey MD RX Request-- [place] [id number] 05/27/20 15 05/27/2015 Dale Tracey MD RX Request-- [place] [id number] 05/27/20 15 05/27/2015 Dale Tracey MD RX Request-- [place] [id number] 05/27/20 15 05/27/2015 Dale Tracey MD RX Request-- [place] [id number] 05/27/20 15 05/27/2015 Dale Tracey MD RX Request-- [place] [id number] 05/27/20 15 05/27/2015 Dale Tracey MD RX Request-- [place] [id number] 05/27/20 15 05/27/2015 Dale Tracey MD RX Request-- [place] [id number] 05/27/20 15 05/27/2015 Dale Tracey MD RX Request-- [place] [id number] 05/27/20 15 05/27/2015 Dale Tracey MD RX Request-- [place] [id number] 05/27/20 15 05/27/2015 Dale Tracey MD RX Request-- [place] [id number] 05/27/20 15 05/27/2015 Dale Tracey MD RX Request-- [place] [id number] 05/27/20 15 05/27/2015 Dale Tracey MD RX Request-- [place] [id number] 05/27/20 15 05/27/2015 Dale Tracey MD RX Request-- [place] [id number] 05/27/20 15 05/27/2015 Dale Tracey MD RX Request-- [place] [id number] 05/27/20 15 05/27/2015 Dale Tracey MD [facility] fax [id number] 05/27/20 15 05/27/2015 Dale Tracey MD [facility] fax [id number] 05/27/20 15 05/27/2015 Dale Tracey MD [facility] fax [id number] 05/27/20 15 05/27/2015 Dale Tracey MD [facility] fax [id number] 05/27/20 15 05/27/2015 Dale Tracey MD [facility] fax [id number] 05/27/20 15 05/27/2015 Dale Tracey MD [facility] fax [id number] 05/27/20 15 05/27/2015 Dale Tracey MD [facility] fax [id number] 05/27/20 15 05/27/2015 Dale Tracey MD [facility] fax [id number] 05/27/20 15 05/27/2015 Dale Tracey MD [facility] fax [id number] 05/27/20 15 05/27/2015 Dale Tracey MD [facility] fax [id number] 05/27/20 15 05/27/2015 [facility] [id number] 05/27/20 15 05/27/2015 [facility] [id number] 05/27/20 15 05/27/2015 Dale Tracey MD [facility] fax [id number] 05/27/20 15 05/27/2015 [facility] [id number] 05/27/20 15 05/27/2015 Dale Tracey MD [facility] fax [id number] 05/27/20 15 05/27/2015 Dale Tracey MD [facility] fax [id number] 05/27/20 15 05/27/2015 MD [facility] fax [id number] 05/27/20 15 05/27/2015 MD [facility]efer[facility] fax [id number] 05/27/20 15 05/27/2015 Dale Tracey MD [facility] fax [id number] 05/27/20 15 05/27/2015 Dale Tracey MD [facility] fax [id number] 05/27/20 15 05/27/2015 Dale Tracey MD [facility] fax [id number] 05/27/20 15 05/27/2015 Dale Tracey MD [facility] fax [id number] 05/27/20 15 05/27/2015 Dale Tracey MD [facility] fax [id number] 05/27/20 15 05/27/2015 Dale Tracey MD [facility] fax [id number] 05/27/20 15 05/27/2015 Dale Tracey MD [facility] fax [id number] 05/27/20 15 05/27/2015 Dale Tracey MD [facility] fax [id number] 05/27/20 15 05/27/2015 Dale Tracey MD [facility] fax [id number] 05/27/20 15 05/27/2015 Dale Tracey MD [facility] fax [id number] 05/27/20 15 05/27/2015 Dale Tracey MD [facility] fax [id number] 05/27/20 15 05/27/2015 MD [facility]ef[facility] fax [id number] 05/27/20 15 05/27/2015 Dale Tracey MD [facility] [id number] 06/23/2015 06/23/2015 Dale Tracey MD MRI [id number] 06/23/2015 06/23/2015 Dale Tracey MD [facility] [id number] 06/23/2015 06/23/2015 Dale Tracey MD MRI [id number] 06/23/2015 06/23/2015 Dale Tracey MD MRI [id number] 06/23/2015 06/23/2015 Dale Tracey MD MRI [id number] 06/23/2015 06/23/2015 Dale Tracey MD MRI [id number] 06/23/2015 06/23/2015 Dale Tracey MD MRI [id number] 06/23/2015 06/23/2015 Dale Tracey MD MRI [id number] 06/23/2015 06/23/2015 Dale Tracey MD MRI [id number] 06/23/2015 06/23/2015 Dale Tracey MD MRI [id number] 06/23/2015 06/23/2015 Dale Tracey MD MRI [id number] 06/23/2015 06/23/2015 Dale Tracey MD MRI [id number] 06/23/2015 06/23/2015 Dale Tracey MD MRI [id number] 06/23/2015 06/23/2015 Dale Tracey MD MRI [id number] 06/23/2015 06/23/2015 Dale Tracey MD MRI [id number] 06/23/2015 06/23/2015 Dale Tracey MD MRI [id number] 06/23/2015 06/23/2015 Dale Tracey MD MRI [id number] 06/23/2015 06/23/2015 Dale Tracey MD MRI [id number] 06/23/2015 06/23/2015 Dale Tracey MD MRI [id number] 06/23/2015 06/23/2015 Dale Tracey MD MRI [id number] 06/23/2015 06/23/2015 Dale Tracey MD MRI [id number] 06/23/2015 06/23/2015 Dale Tracey MD MRI [id number] 06/23/2015 06/23/2015 Dale Tracey MD MRI [id number] 06/23/2015 06/23/2015 Dale Tracey MD [facility] [id number] 06/23/2015 06/23/2015 Dale Tracey MD [facility] [id number] 06/23/2015 06/23/2015 Dale Tracey MD RX Request-- Folic Acid [id number] 07/06/2015 07/06/2015 Dale Tracey MD RX Request-- Folic Acid [id number] 07/06/2015 07/06/2015 Dale Tracey MD RX Request-- Folic Acid [id number] 07/06/2015 07/06/2015 Dale Tracey MD RX Request-- Folic Acid [id number] 07/06/2015 07/06/2015 Dale Tracey MD RX Request-- Folic Acid [id number] 07/06/2015 07/06/2015 Dale Tracey MD RX Request-- Folic Acid [id number] 07/06/2015 07/06/2015 Dale Tracey MD RX Request-- Folic Acid [id number] 07/06/2015 07/06/2015 Dale Tracey MD RX Request-- Folic Acid [id number] 07/06/2015 07/06/2015 Dale Tracey MD RX Request-- Folic Acid [id number] 07/06/2015 07/06/2015 Dale Tracey MD RX Request-- Folic Acid [id number] 07/06/2015 07/06/2015 Dale Tracey MD RX Request-- Folic Acid [id number] 07/06/2015 07/06/2015 Dale Tracey MD RX Request-- Folic Acid [id number] 07/06/2015 07/06/2015 Dale Tracey MD RX Request-- Folic Acid [id number] 07/06/2015 07/06/2015 Dale Tracey MD RX Request-- Folic Acid [id number] 07/06/2015 07/06/2015 Dale Tracey MD RX Request-- Folic Acid [id number] 07/06/2015 07/06/2015 Dale Tracey MD RX Request-- Folic Acid [id number] 07/06/2015 07/06/2015 Dale Tracey MD RX Request-- Folic Acid [id number] 07/06/2015 07/06/2015 Dale Tracey MD RX Request-- Folic Acid [id number] 07/06/2015 07/06/2015 Dale Tracey MD RX Request-- Folic Acid [id number] 07/06/2015 07/06/2015 Dale Tracey MD RX Request-- Folic Acid [id number] 07/06/2015 07/06/2015 Dale Tracey MD RX Request-- Folic Acid [id number] 07/06/2015 07/06/2015 Dale Tracey MD RX Request-- Folic Acid [id number] 07/06/2015 07/06/2015 Dale Tracey MD RX Request-- Folic Acid [id number] 07/06/2015 07/06/2015 Dale Tracey MD RX Request-- Folic Acid [id number] 07/06/2015 07/06/2015 Dale Tracey MD RX Request-- Folic Acid [id number] 07/06/2015 07/06/2015 Dale Tracey MD RX Request-- Folic Acid [id number] 07/06/2015 07/06/2015 Dale Tracey MD 3 [place] F/U [id number] 08/17/20 15 08/17/2015 Dale Tracey MD 3 [facility] F/U [id number] 08/17/20 15 08/17/2015 Dale Tracey MD 3 [place] F/U [id number] 08/17/20 15 08/17/2015 Dale Tracey MD 3 [place] F/U [id number] 08/17/20 15 08/17/2015 Dale Tracey MD [facility] [place] F/U [id number] 08/17/20 15 08/17/2015 Dale Tracey MD [facility] [place] F/U [id number] 08/17/20 15 08/17/2015 Dale Tracey MD [facility] [place] F/U [id number] 08/17/20 15 08/17/2015 Dale Tracey MD [facility] [place] F/U [id number] 08/17/20 15 08/17/2015 Dale Tracey MD [facility] [place] F/U [id number] 08/17/20 15 08/17/2015 Dale Tracey MD [facility] [place] F/U [id number] 08/17/20 15 08/17/2015 Dale Tracey MD [facility] [place] F/U [id number] 08/17/20 15 08/17/2015 Dale Tracey MD [facility] [place] F/U [id number] 08/17/20 15 08/17/2015 Dale Tracey MD [facility] [place] F/U [id number] 08/17/20 15 08/17/2015 Dale Tracey MD [facility] [place] F/U [id number] 08/17/20 15 08/17/2015 Dale Tracey MD [facility] [place] F/U [id number] 08/17/20 15 08/17/2015 Dale Tracey MD [facility] [place] F/U [id number] 08/17/20 15 08/17/2015 Dale Tracey MD [facility] [place] F/U [id number] 08/17/20 15 08/17/2015 Dale Tracey MD 3 [place] F/U [id number] 08/17/20 15 08/17/2015 Dale Tracey MD [facility] [place] F/U [id number] 08/17/20 15 08/17/2015 Dale Tracey MD [facility] [place] F/U [id number] 08/17/20 15 08/17/2015 Dale Tracey MD [facility] [place] F/U [id number] 08/17/20 15 08/17/2015 Dale Tracey MD [facility] [place] F/U [id number] 08/17/20 15 08/17/2015 Dale Tracey MD [facility] [place] F/U [id number] 08/17/20 15 08/17/2015 Dale Tracey MD 3 [place] F/U [id number] 08/17/20 15 08/17/2015 Dale Tracey MD [facility] [id number] 09/15/20 15 09/15/2015 Dale Tracey MD [facility] [id number] 09/15/20 15 09/15/2015 Dale Tracey MD [facility] [id number] 09/15/20 15 09/15/2015 Dale Tracey MD [facility] [id number] 09/15/20 15 09/15/2015 Dale Tracey MD [facility] [id number] 09/15/20 15 09/15/2015 Dale Tracey MD [facility] [id number] 09/15/20 15 09/15/2015 Dale Tracey MD [facility] [id number] 09/15/20 15 09/15/2015 Dale Tracey MD [facility] [id number] 09/15/20 15 09/15/2015 Dale Tracey MD [facility] [id number] 09/15/20 15 09/15/2015 Dale Tracey MD [facility] [id number] 09/15/20 15 09/15/2015 Dale Tracey MD [facility] [id number] 09/15/20 15 09/15/2015 Dale Tracey MD [facility] [id number] 09/15/20 15 09/15/2015 Dale Tracey MD [facility] [id number] 09/15/20 15 09/15/2015 Dale Tracey MD [facility] [id number] 09/15/20 15 09/15/2015 Dale Tracey MD [facility] [id number] 09/15/20 15 09/15/2015 Dale Tracey MD [facility] [id number] 09/15/20 15 09/15/2015 Dale Tracey MD [facility] [id number] 09/15/20 15 09/15/2015 Dale Tracey MD [facility] [id number] 09/15/20 15 09/15/2015 Dale Tracey MD [facility] [id number] 09/15/20 15 09/15/2015 Dale Tracey MD [facility] [id number] 09/15/20 15 09/15/2015 Dale Tracey MD [facility] [id number] 09/15/20 15 09/15/2015 Dale Tracey MD [facility] [id number] 09/15/20 15 09/15/2015 Dale Tracey MD [facility] [id number] 09/15/20 15 09/15/2015 Dale Tracey MD [facility] [id number] 09/15/20 15 09/15/2015 Dale Tracey MD [facility] [id number] 09/15/20 15 09/15/2015 Dale Tracey MD [facility] [id number] 09/15/20 15 09/15/2015 Dale Tracey MD [facility] [id number] 09/27/20 15 09/27/2015 Dale Tracey MD [facility] [id number] 09/27/20 15 09/27/2015 Dale Tracey MD [facility] [id number] 09/27/20 15 09/27/2015 Dale Tracey MD [facility] [id number] 09/27/20 15 09/27/2015 Dale Tracey MD [facility] [id number] 09/27/20 15 09/27/2015 Dale Tracey MD [facility] [id number] 09/27/20 15 09/27/2015 Dale Tracey MD [facility] [id number] 09/27/20 15 09/27/2015 Dale Tracey MD [facility] [id number] 09/27/20 15 09/27/2015 Dale Tracey MD [facility] [id number] 09/27/20 15 09/27/2015 Dale Tracey MD [facility] [id number] 09/27/20 15 09/27/2015 Dale Tracey MD [facility] [id number] 09/27/20 15 09/27/2015 Dale Tracey MD [facility] [id number] 09/27/20 15 09/27/2015 Dale Tracey MD [facility] [id number] 09/27/20 15 09/27/2015 Dale Tracey MD [facility] [id number] 09/27/20 15 09/27/2015 Dale Tracey MD [facility] [id number] 09/27/20 15 09/27/2015 Dale Tracey MD [facility] [id number] 09/27/20 15 09/27/2015 Dale Tracey MD [facility] [id number] 09/27/20 15 09/27/2015 Dale Tracey MD [facility] [id number] 09/27/20 15 09/27/2015 Dale Tracey MD [facility] [id number] 09/27/20 15 09/27/2015 Dale Tracey MD [facility] [id number] 09/27/20 15 09/27/2015 Dale Tracey MD [facility] [id number] 09/27/20 15 09/27/2015 Dale Tracey MD [facility] [id number] 09/27/20 15 09/27/2015 Dale Tracey MD [facility] [id number] 09/27/20 15 09/27/2015 Dale Tracey MD [facility] [id number] 09/27/20 15 09/27/2015 Dale Tracey MD [facility] [id number] 09/27/20 15 09/27/2015 Dale Tracey MD [facility] [id number] 11/01/2015 11/01/2015 Dale Tracey MD [facility] [id number] 11/01/2015 11/01/2015 Dale Tracey MD [facility] [id number] 11/01/2015 11/01/2015 Dale Tracey MD [facility] [id number] 11/01/2015 11/01/2015 Dale Tracey MD [facility] [id number] 11/01/2015 11/01/2015 Dale Tracey MD [facility] [id number] 11/01/2015 11/01/2015 Dale Tracey MD [facility] [id number] 11/01/2015 11/01/2015 Dale Tracey MD [facility] [id number] 11/01/2015 11/01/2015 Dale Tracey MD [facility] [id number] 11/01/2015 11/01/2015 Dale Tracey MD [facility] [id number] 11/01/2015 11/01/2015 Dale Tracey MD [facility] [id number] 11/01/2015 11/01/2015 Dale Tracey MD [facility] [id number] 11/01/2015 11/01/2015 Dale Tracey MD [facility] [id number] 11/01/2015 11/01/2015 Dale Tracey MD [facility] [id number] 11/01/2015 11/01/2015 Dale Tracey MD [facility] [id number] 11/01/2015 11/01/2015 Dale Tracey MD [facility] [id number] 11/01/2015 11/01/2015 Dale Tracey MD [facility] [id number] 11/01/2015 11/01/2015 Dale Tracey MD [facility] [id number] 11/01/2015 11/01/2015 Dale Tracey MD [facility] [id number] 11/01/2015 11/01/2015 Dale Tracey MD [facility] [id number] 11/01/2015 11/01/2015 Dale Tracey MD [facility] [id number] 11/01/2015 11/01/2015 Dale Tracey MD [facility] [id number] 11/01/2015 11/01/2015 Dale Tracey MD [facility] [id number] 11/01/2015 11/01/2015 Dale Tracey MD Up comming appointment for Hanny Ibrahim [id number] 11/08/2015 11/08/2015 Dale Tracey MD Up comming appointment for Hanny Collinsexter [id number] 11/08/2015 11/08/2015 Dale Tracey MD Up comming appointment for Hanny Kaurter [id number] 11/08/2015 11/08/2015 Dale Tracey MD Up comming appointment for Hanny Ibrahim [id number] 11/08/2015 11/08/2015 Dale Tracey MD Up comming appointment for Hanny Brewerindexter [id number] 11/08/2015 11/08/2015 Dale Tracey MD Up comming appointment for Hanny Brewerindexter [id number] 11/08/2015 11/08/2015 Dale Tracey MD Up comming appointment for Hanny Brewerindexter [id number] 11/08/2015 11/08/2015 Dale Tracey MD Up comming appointment for Hanny Collinsexter [id number] 11/08/2015 11/08/2015 Dale Tracey MD Up comming appointment for Hanny Brewerindexter [id number] 11/08/2015 11/08/2015 Dale Tracey MD Up comming appointment for Hanny Brewerindexter [id number] 11/08/2015 11/08/2015 Dale Tracey MD Up comming appointment for Hanny Brewerindexter [id number] 11/08/2015 11/08/2015 Dale Tracey MD Up comming appointment for Hanny Brewerindexter [id number] 11/08/2015 11/08/2015 Dale Tracey MD Up comming appointment for Hanny Brewerindexter [id number] 11/08/2015 11/08/2015 Dale Tracey MD Up comming appointment for Hanny Collinsexter [id number] 11/08/2015 11/08/2015 Dale Tracey MD Up comming appointment for Hanny Brewerindexter [id number] 11/08/2015 11/08/2015 Dale Tracey MD Up comming appointment for Hanny Brewerindexter [id number] 11/08/2015 11/08/2015 Dale Tracey MD Up comming appointment for Hanny Brewerindexter [id number] 11/08/2015 11/08/2015 Dale Tracey MD Up comming appointment for Hanny Brewerindexter [id number] 11/08/2015 11/08/2015 Dale Tracey MD Up comming appointment for Hanny Brewerindexter [id number] 11/08/2015 11/08/2015 Dale Tracey MD Up comming appointment for Hanny Brewerindexter [id number] 11/08/2015 11/08/2015 Dale Tracey MD Up comming appointment for Hanny Brewerindexter [id number] 11/08/2015 11/08/2015 Dale Tracey MD Up comming appointment for Hanny Alexandria [id number] 11/08/2015 11/08/2015 Dale Tracey MD xray order [id number] 11/16/19 16 11/16/2015 Dale Tracey MD xray order [id number] 11/16/19 16 11/16/2015 Dale Tracey MD xray order [id number] 11/16/19 16 11/16/2015 Dale Tracey MD xray order [id number] 11/16/19 16 11/16/2015 Dale Tracey MD xray order [id number] 11/16/19 16 11/16/2015 Dale Tracey MD xray order [id number] 11/16/19 16 11/16/2015 Dale Tracey MD xray order [id number] 11/16/19 16 11/16/2015 Dale Tracey MD xray order [id number] 11/16/19 16 11/16/2015 Dale Tracey MD xray order [id number] 11/16/19 16 11/16/2015 Dale Tracey MD xray order [id number] 11/16/19 16 11/16/2015 Dale Tracey MD xray order [id number] 11/16/19 16 11/16/2015 Dale Tracey MD xray order [id number] 11/16/19 16 11/16/2015 Dale Tracey MD xray order [id number] 11/16/19 16 11/16/2015 Dale Tracey MD xray order [id number] 11/16/19 16 11/16/2015 Dale Tracey MD xray order [id number] 11/16/19 16 11/16/2015 Dale Tracey MD xray order [id number] 11/16/19 16 11/16/2015 Dale Tracey MD xray order [id number] 11/16/19 16 11/16/2015 Dale Tracey MD xray order [id number] 11/16/19 16 11/16/2015 Dale Tracey MD xray order [id number] 11/16/19 16 11/16/2015 Dale Tracey MD xray order [id number] 11/16/19 16 11/16/2015 Dale Tracey MD xray order [id number] 11/16/19 16 11/16/2015 Dale Tracey MD humira delivery [id number] 11/23/19 16 11/23/2015 Dale Tracey MD humira delivery [id number] 11/23/19 16 11/23/2015 Dale Tracey MD humira delivery [id number] 11/23/19 16 11/23/2015 Dale Tracey MD humira delivery [id number] 11/23/19 16 11/23/2015 Dale Tracey MD humira delivery [id number] 11/23/19 16 11/23/2015 Dale Tracey MD humira delivery [id number] 11/23/19 16 11/23/2015 Dale Tracey MD humira delivery [id number] 11/23/19 16 11/23/2015 Dale Tracey MD humira delivery [id number] 11/23/19 16 11/23/2015 Dale Tracey MD humira delivery [id number] 11/23/19 16 11/23/2015 Dale Tracey MD humira delivery [id number] 11/23/19 16 11/23/2015 Dale Tracey MD humira delivery [id number] 11/23/19 16 11/23/2015 Dale Tracey MD humira delivery [id number] 11/23/19 16 11/23/2015 Dale Tracey MD humira delivery [id number] 11/23/19 16 11/23/2015 Dale Tracey MD humira delivery [id number] 11/23/19 16 11/23/2015 Dale Tracey MD humira delivery [id number] 11/23/19 16 11/23/2015 Dale Tracey MD humira delivery [id number] 11/23/19 16 11/23/2015 Dale Tracey MD humira delivery [id number] 11/23/19 16 11/23/2015 Dale Tracey MD humira delivery [id number] 11/23/19 16 11/23/2015 Dale Tracey MD humira delivery [id number] 11/23/19 16 11/23/2015 Dale Tracey MD humira delivery [id number] 11/23/19 16 11/23/2015 Dale Tracey MD humira delivery [id number] 11/23/19 16 11/23/2015 Dale Tracey MD New Refill Request [id number] 01/30/20 16 01/30/2016 Dale Tracey MD New Refill Request [id number] 01/30/20 16 01/30/2016 Dale Tracey MD New Refill Request [id number] 01/30/20 16 01/30/2016 Dale Tracey MD New Refill Request [id number] 01/30/20 16 01/30/2016 Dale Tracey MD New Refill Request [id number] 01/30/20 16 01/30/2016 Dale Tracey MD New Refill Request [id number] 01/30/20 16 01/30/2016 Dale Tracey MD New Refill Request [id number] 01/30/20 16 01/30/2016 Dale Tracey MD New Refill Request [id number] 01/30/20 16 01/30/2016 Dale Tracey MD New Refill Request [id number] 01/30/20 16 01/30/2016 Dale Tracey MD New Refill Request [id number] 01/30/20 16 01/30/2016 Dale Tracey MD New Refill Request [id number] 01/30/20 16 01/30/2016 Dale Tracey MD New Refill Request [id number] 01/30/20 16 01/30/2016 Dale Tracey MD New Refill Request [id number] 01/30/20 16 01/30/2016 Dale Tracey MD New Refill Request [id number] 01/30/20 16 01/30/2016 Dale Tracey MD New Refill Request [id number] 01/30/20 16 01/30/2016 Dale Tracey MD New Refill Request [id number] 01/30/20 16 01/30/2016 Dale Tracey MD New Refill Request [id number] 01/30/20 16 01/30/2016 Dale Tracey MD New Refill Request [id number] 01/30/20 16 01/30/2016 Dale Tracey MD New Refill Request [id number] 01/30/20 16 01/30/2016 Dale Tracey MD OV 3-30 [id number] 01/30/20 16 01/30/2016 Dale Tracey MD OV 3-30 [id number] 01/30/20 16 01/30/2016 Dale Tracey MD OV 3-30 [id number] 01/30/20 16 01/30/2016 Dale Tracey MD OV 3-30 [id number] 01/30/20 16 01/30/2016 Dale Tracey MD OV 3-30 [id number] 01/30/20 16 01/30/2016 Dale Tracey MD OV 3-30 [id number] 01/30/20 16 01/30/2016 Dale Tracey MD OV 3-30 [id number] 01/30/20 16 01/30/2016 Dale Tracey MD OV 3-30 [id number] 01/30/20 16 01/30/2016 Dale Tracey MD OV 3-30 [id number] 01/30/20 16 01/30/2016 Dale Tracey MD OV 3-30 [id number] 01/30/20 16 01/30/2016 Dale Tracey MD OV 3-30 [id number] 01/30/20 16 01/30/2016 Dale Tracey MD OV 3-30 [id number] 01/30/20 16 01/30/2016 Dale Tracey MD OV 3-30 [id number] 01/30/20 16 01/30/2016 Dale Tracey MD OV 3-30 [id number] 01/30/20 16 01/30/2016 Dale Tracey MD OV 3-30 [id number] 01/30/20 16 01/30/2016 Dale Tracey MD OV 3-30 [id number] 01/30/20 16 01/30/2016 Dale Tracey MD OV 3-30 [id number] 01/30/20 16 01/30/2016 Dale Tracey MD OV 3-30 [id number] 01/30/20 16 01/30/2016 Dale Tracey MD REFILLS [id number] 02/01/20 16 02/01/2016 Dale Tracey MD REFILLS [id number] 02/01/20 16 02/01/2016 Dale Tracey MD REFILLS [id number] 02/01/20 16 02/01/2016 Dale Tracey MD REFILLS [id number] 02/01/20 16 02/01/2016 Dale Tracey MD REFILLS [id number] 02/01/20 16 02/01/2016 Dale Tracey MD REFILLS [id number] 02/01/20 16 02/01/2016 Dale Tracey MD REFILLS [id number] 02/01/20 16 02/01/2016 Dale Tracey MD REFILLS [id number] 02/01/20 16 02/01/2016 Dale Tracey MD REFILLS [id number] 02/01/20 16 02/01/2016 Dale Tracey MD REFILLS [id number] 02/01/20 16 02/01/2016 Dale Tracey MD REFILLS [id number] 02/01/20 16 02/01/2016 Dale Tracey MD REFILLS [id number] 02/01/20 16 02/01/2016 Dale Tracey MD REFILLS [id number] 02/01/20 16 02/01/2016 Dale Tracey MD REFILLS [id number] 02/01/20 16 02/01/2016 Dale Tracey MD REFILLS [id number] 02/01/20 16 02/01/2016 Dale Tracey MD REFILLS [id number] 02/01/20 16 02/01/2016 Dale Tracey MD REFILLS [id number] 02/01/20 16 02/01/2016 Dale Tracey MD HUMIRA ARRIVAL DATE [id number] 02/24/20 16 02/24/2016 Dale Tracey MD HUMIRA ARRIVAL DATE [id number] 02/24/20 16 02/24/2016 Dale Tracey MD HUMIRA ARRIVAL DATE [id number] 02/24/20 16 02/24/2016 Dale Tracey MD HUMIRA ARRIVAL DATE [id number] 02/24/20 16 02/24/2016 Dale Tracey MD HUMIRA ARRIVAL DATE [id number] 02/24/20 16 02/24/2016 Dale Tracey MD HUMIRA ARRIVAL DATE [id number] 02/24/20 16 02/24/2016 Dale rTacey MD HUMIRA ARRIVAL DATE [id number] 02/24/20 16 02/24/2016 Dale Tracey MD HUMIRA ARRIVAL DATE [id number] 02/24/20 16 02/24/2016 Dale Tracey MD HUMIRA ARRIVAL DATE [id number] 02/24/20 16 02/24/2016 Dale Tracey MD HUMIRA ARRIVAL DATE [id number] 02/24/20 16 02/24/2016 Dale Tracey MD HUMIRA ARRIVAL DATE [id number] 02/24/20 16 02/24/2016 Dale Tracey MD HUMIRA ARRIVAL DATE [id number] 02/24/20 16 02/24/2016 Dale Tracey MD HUMIRA ARRIVAL DATE [id number] 02/24/20 16 02/24/2016 Dale Tracey MD HUMIRA ARRIVAL DATE [id number] 02/24/20 16 02/24/2016 aDle Tracey MD HUMIRA ARRIVAL DATE [id number] 02/24/20 16 02/24/2016 Dale Tracey MD HUMIRA ARRIVAL DATE [id number] 02/24/20 16 02/24/2016 Dale Tracey MD refill mtx [id number] 02/28/20 16 02/28/2016 Dale Tracey MD refill mtx [id number] 02/28/20 16 02/28/2016 Dale Tracey MD refill mtx [id number] 02/28/20 16 02/28/2016 Dale Tracey MD refill mtx [id number] 02/28/20 16 02/28/2016 Dale Tracey MD refill mtx [id number] 02/28/20 16 02/28/2016 Dale Tracey MD refill mtx [id number] 02/28/20 16 02/28/2016 Dale Tracey MD refill mtx [id number] 02/28/20 16 02/28/2016 Dale Tracey MD refill mtx [id number] 02/28/20 16 02/28/2016 Dale Tracey MD refill mtx [id number] 02/28/20 16 02/28/2016 Dale Tracey MD refill mtx [id number] 02/28/20 16 02/28/2016 Dale Tracey MD refill mtx [id number] 02/28/20 16 02/28/2016 Dale Tracey MD refill mtx [id number] 02/28/20 16 02/28/2016 Dale Tracey MD refill mtx [id number] 02/28/20 16 02/28/2016 Dale Tracey MD refill mtx [id number] 02/28/20 16 02/28/2016 Dale Tracey MD refill mtx [id number] 02/28/20 16 02/28/2016 Dale Tracey MD Update Demographics - Additional Info [id number] 03/01/2016 03/01/2016 Dale Tracey MD Update Demographics - Additional Info [id number] 03/01/2016 03/01/2016 Dale Tracey MD Update Demographics - Additional Info [id number] 03/01/2016 03/01/2016 Dale Tracey MD Update Demographics - Additional Info [id number] 03/01/2016 03/01/2016 Dale Tracey MD Update Demographics - Additional Info [id number] 03/01/2016 03/01/2016 Dale Tracey MD Update Demographics - Additional Info [id number] 03/01/2016 03/01/2016 Dale Tracey MD Update Demographics - Additional Info [id number] 03/01/2016 03/01/2016 Dale Tracey MD Update Demographics - Additional Info [id number] 03/01/2016 03/01/2016 Dale Tracey MD Update Demographics - Additional Info [id number] 03/01/2016 03/01/2016 Dale Tracey MD Update Demographics - Additional Info [id number] 03/01/2016 03/01/2016 Dale Tracey MD Update Demographics - Additional Info [id number] 03/01/2016 03/01/2016 Dale Tracey MD Update Demographics - Additional Info [id number] 03/01/2016 03/01/2016 Dale Tracey MD Update Demographics - Additional Info [id number] 03/01/2016 03/01/2016 Dale Tracey MD Update Demographics - Additional Info [id number] 03/01/2016 03/01/2016 MD zeferino Cedeno [id number] 04/04/20 16 04/04/2016 MD zeferino Cedeno [id number] 04/04/20 16 04/04/2016 MD zeferino Cedeno [id number] 04/04/20 16 04/04/2016 MD zeferino Cedeno [id number] 04/04/20 16 04/04/2016 Dale Tracey MD [facility] [id number] 04/04/20 16 04/04/2016 Dale Tracey MD [facility] [id number] 04/04/20 16 04/04/2016 Dale Tracey MD [facility] [id number] 04/04/20 16 04/04/2016 Dale Tracey MD [facility] [id number] 04/04/20 16 04/04/2016 Dale Tracey MD [facility] [id number] 04/04/20 16 04/04/2016 Dale Tracey MD [facility] [id number] 04/04/20 16 04/04/2016 Dale Tracey MD [facility] [id number] 04/04/20 16 04/04/2016 Dale Tracey MD [facility] [id number] 04/04/20 16 04/04/2016 Dale Tracey MD [facility] [id number] 04/04/20 16 04/04/2016 Dale Tracey MD [facility] rx [id number] 04/11/20 16 04/11/2016 Dale Tracey MD [facility] rx [id number] 04/11/20 16 04/11/2016 Dale Tracey MD [facility] rx [id number] 04/11/20 16 04/11/2016 Dale Tracey MD [facility] rx [id number] 04/11/20 16 04/11/2016 Dale Tracey MD [facility] rx [id number] 04/11/20 16 04/11/2016 Dale Tracey MD [facility] rx [id number] 04/11/20 16 04/11/2016 Dale Tracey MD [facility] rx [id number] 04/11/20 16 04/11/2016 Dale Trcaey MD [facility] rx [id number] 04/11/20 16 04/11/2016 Dale Tracey MD [facility] rx [id number] 04/11/20 16 04/11/2016 Dale Tracey MD [facility] rx [id number] 04/11/20 16 04/11/2016 Dale Tracey MD [facility] rx [id number] 04/11/20 16 04/11/2016 Dale Tracey MD [facility] rx [id number] 04/11/20 16 04/11/2016 Dale Tracey MD REFILLS [id number] 05/03/20 16 05/03/2016 Dale Tracey MD REFILLS [id number] 05/03/20 16 05/03/2016 Dale Tracey MD REFILLS [id number] 05/03/20 16 05/03/2016 Dale Tracey MD REFILLS [id number] 05/03/20 16 05/03/2016 Dale Tracey MD REFILLS [id number] 05/03/20 16 05/03/2016 Dale Tracey MD REFILLS [id number] 05/03/20 16 05/03/2016 Dale Tracey MD REFILLS [id number] 05/03/20 16 05/03/2016 Dale Tracey MD REFILLS [id number] 05/03/20 16 05/03/2016 Dale Tracey MD REFILLS [id number] 05/03/20 16 05/03/2016 Dale Tracey MD REFILLS [id number] 05/03/20 16 05/03/2016 Dale Tracey MD REFILLS [id number] 05/03/20 16 05/03/2016 Dale Tracey MD OV note [id number] 05/14/20 16 05/14/2016 Dale Tracey MD OV note [id number] 05/14/20 16 05/14/2016 Dale Tracey MD OV note [id number] 05/14/20 16 05/14/2016 Dale Tracey MD OV note [id number] 05/14/20 16 05/14/2016 Dale Tracey MD OV note [id number] 05/14/20 16 05/14/2016 Dale Tracey MD OV note [id number] 05/14/20 16 05/14/2016 Dale Tracey MD OV note [id number] 05/14/20 16 05/14/2016 Dale Tracey MD OV note [id number] 05/14/20 16 05/14/2016 Dale Tracey MD OV note [id number] 05/14/20 16 05/14/2016 Dale Tracey MD OV note [id number] 05/14/20 16 05/14/2016 Dale Tracey MD OV note [id number] 05/14/20 16 05/14/2016 Dale Tracey MD refill/mtx [id number] 05/28/20 16 05/28/2016 Dale Tracey MD refill/mtx [id number] 05/28/20 16 05/28/2016 Dale Tracey MD refill/mtx [id number] 05/28/20 16 05/28/2016 Dale Tracey MD refill/mtx [id number] 05/28/20 16 05/28/2016 Dale Tracey MD refill/mtx [id number] 05/28/20 16 05/28/2016 Dale Tracey MD refill/mtx [id number] 05/28/20 16 05/28/2016 Dale Tracey MD refill/mtx [id number] 05/28/20 16 05/28/2016 Dale Tracey MD refill/mtx [id number] 05/28/20 16 05/28/2016 Dale Tracey MD refill/mtx [id number] 05/28/20 16 05/28/2016 Dale Tracey MD 1 mth follow up [id number] 05/31/20 16 05/31/2016 Dale Tracey MD 1 mth follow up [id number] 05/31/20 16 05/31/2016 Dale Tracey MD 1 mth follow up [id number] 05/31/20 16 05/31/2016 Dale Tracey MD 1 mth follow up [id number] 05/31/20 16 05/31/2016 Dale Tracey MD 1 mth follow up [id number] 05/31/20 16 05/31/2016 Dale Tracey MD 1 mth follow up [id number] 05/31/20 16 05/31/2016 Dale Tracey MD 1 mth follow up [id number] 05/31/20 16 05/31/2016 Dale Tracey MD 1 mth follow up [id number] 05/31/20 16 05/31/2016 Dale Tracey MD FOL[employer] REFILL [id number] 06/27/20 16 06/27/2016 Dale Tracey MD FOLIC [employer]ID REFILL [id number] 06/27/20 16 06/27/2016 Dale Tracey MD FOLIC ACID REFILL [id number] 06/27/20 16 06/27/2016 Dale Tracey MD FOLIC ACID REFILL [id number] 06/27/20 16 06/27/2016 Dale Tracey MD FOLIC ACID REFILL [id number] 06/27/20 16 06/27/2016 Dale Tracey MD FOLIC ACID REFILL [id number] 06/27/20 16 06/27/2016 Dale Tracey MD FOLIC ACID REFILL [id number] 06/27/20 16 06/27/2016 Dale Tracey MD HUMIRA ARRIVAL [id number] 07/04/20 16 2016 Dale Tracey MD HUMIRA ARRIVAL [id number] 07/04/20 16 2016 Dale Tracey MD HUMIRA ARRIVAL [id number] 07/04/20 16 2016 Dale Tracey MD HUMIRA ARRIVAL [id number] 07/04/20 16 2016 Dale Tracey MD HUMIRA ARRIVAL [id number] 07/04/20 16 2016 Dale Tracey MD HUMIRA ARRIVAL [id number] 07/04/20 16 2016 Dale Tracey MD [facility] rx [id number] 07/11/20 16 07/11/2016 Dale Tracey MD [facility] rx [id number] 07/11/20 16 07/11/2016 Dale Tracey MD [facility] rx [id number] 07/11/20 16 07/11/2016 Dale Tracey MD [facility] rx [id number] 07/11/20 16 07/11/2016 Dale Tracey MD [facility] rx [id number] 07/11/20 16 07/11/2016 Dale Tracey MD 3 mth followup [id number] 08/30/20 16 08/30/2016 Dale Tracey MD 3 mth followup [id number] 08/30/20 16 08/30/2016 Dale Tracey MD [facility] followup [id number] 08/30/20 16 08/30/2016 Dale Tracey MD 3 [facility] followup [id number] 08/30/20 16 08/30/2016 Dale Tracey MD pneumonia [id number] 09/20/20 16 09/20/2016 Dale Trcaey MD pneumonia [id number] 09/20/20 16 09/20/2016 Dale Tracey MD [facility] [id number] 09/20/20 16 09/20/2016 Dale Tracey MD [facility] [id number] 10/16/20 16 10/16/2016 Dale Tracey MD [facility] [id number] 10/16/20 16 10/16/2016 Dale Tracey MD [facility] [id number] 11/30/19 17 11/30/2016 Dale Tracey [facility] [id number] Vickey Caputo 04/24/2018 04/25/2018 [facility] [place] [facility] [id number] Lasha Kaur 04/25/2020 04/26/2020 [facility] [place] [facility] [id number] Meng Ag 05/10/2020 06/09/2020 [facility] [place] Procedures No Data Provided for This Section Assessment and Plan No Data Provided for This Section Plan of Care No Data Provided for This Section Social History Social History Date Source Social History TypeResponse 06/09/2020 [facility] [place] No data available for this section 04/26/2020 [facility] [place] Social History ElementQualifiersDate Rep orted Tobacco Use: . Are you a:: former smoker , How long has it been since you last smoked?: > 10 years Nov 30, 2016 Marital Status: . Nov 30, 2016 Caffeine: yes. frequency:2 sodas a day Nov 30, 2016 Exercise: yes. walk Nov 30, 2016 Alcohol: socially. Nov 30, 2016 Occupation: . retired from floor work (carpet and t ile) Nov 30, 2016 11/30/2016 Dale Tracey Family History No Data Provided for This Section Advance Directives No Data Provided for This Section Functional Status No Data Provided for This Section
--- OUTSIDE RECORDS SUMMARY | 2020-07-16 11:24 | XMS REPORT | Continuity of Care Document ---
Author Author [facility] t Organization [facility] Address [address] [place] [address] Phone Unavailable Care Team Providers Care Instructional Technology Director Name Role Phone Marques Ag Attphys Eligio Kaur Attphys George Jimenez Attphys [phone] Cy Tracey Attphys Payers Payer Name Policy Type Policy Number Effective Date Expiration Date S [place] [employer] MEDICARE PPO [id number] 2019 00:00:00 Problems Condition Name Condition Details Condition Category Status Onset Date Resolution Date Last Treatment Date Treating Clinician Comments Source RT KNEE RT K NEE Active 05/05/2020 [employer] Diagnosis Active 2020-05-05 12:00:00 2020-05-10 08:48:00 Akin Shah Hiatal hernia Hiatal Hernia Problem Active 2019-10-08 00:00:00 [facility] M54.31 - SCIATICA, RIGHT SIDE M54.31 - SCIATICA, RIGHT SIDE Active 04/24/2018 [employer] Diagnosis Active 2018-04-24 00:0 1:00 2018-04-24 13:23:00 Akin Shah Peripheral vascular disease Peripheral Vascular Disease Problem Active 2018-01-20 00:00:00 [facility] Crohn's disease Crohn's Disease Problem Active 2018-01-20 00:00:00 [facility] History of malignant neoplasm of colon History of Malignant Neoplasm of Colon Problem Active 2016-11-23 00:00:00 [facility] Basal cell carcinoma of skin Basal Cell Carcinoma of Skin Problem Active 2016-07-31 00:00:00 [facility] Hyperlipidemia Hyperlipidemia Problem Active 2016-07-31 00:00:00 [facility] Gout Gout Problem Active 2016-07-31 00:00:00 [facility] Neuropathy Neuropathy Problem Active 2016-07-31 00:00:00 [facility] Hypertensive disorder Hypertensive Disorder Problem Active 201 04-12-27 00:00:00 [place] jacobo Gastroesophageal reflux disease Gastroesophageal Reflux Disease Pro blem Active 2016-07-31 00:00:00 [facility] Rheumatoid arthritis Rheumatoid Arthritis Problem [facility] toe Hammer Toe Problem Active 2016-07-31 00:00:00 [facility] Body mass index (BMI) 37.0-37.9, adult Body mass index (BMI) 37.0-37.9, adult Active Problem 06/25/2020 Dale Tracey Problem Ac tive 2020-06-25 02:45:24 Akin Her painter Morbid (severe) obesity due to excess calories Morbid (severe) obesity due to excess calories Active Problem 05/28/2019 Dale Tracey Problem Active 2019-05-28 02:46:55 Akin Shah Carpal tunnel syndrome Carp al tunnel syndrome Active Problem 06/25/2020 Dale Tracey Problem Active 2020-06-25 02 :45:24 Akin Shah Crohn disease Croh n disease Active Problem 06/25/2020 Dale Tracey Problem Active 2020-06-25 02:45:24 Akin Shah Fever, unspecified Feve r, unspecified Active Problem 06/25/2020 Dale Tracey Problem Active 2020-06-25 02:45:24 Akin Shah Other longterm (current) drug therapy Other exterminator (current) drug therapy Active Problem 06/25/2020 Dale Tracey Problem Ac tive 2020-06-25 02:45:24 Akin Her painter Body mass index (BMI) 34.0-34.9, adult Body mass index (BMI) 34.0-34.9, adult Active Problem 05/28/2019 Dale Pintoer Problem Ac tive 2019-05-28 02:46:55 Akin Her painter Crohn's disease, unspecified, with other complication Crohn's disease, unspecified, with other complication Active Problem 06/25/2020 Dale Tracey Problem Active 2020-06-25 02:45:24 Akin Shah Inflammatory arthritis Infl ammatory arthritis Active Diagnosis 06/25/2020 Dale Tracey Diagnosis Active 2020-06-25 02:45:24 [facility] Lumbar degenerative disc disease Lumbar degenerative disc disease Active Problem 06/25/2020 Dale Tracey Problem Active 2020-06-25 02:45:24 Akin Shah Primary osteoarthritis of right knee Primary osteoarthritis of right knee Active Problem 06/25/2020 Dale Tracey Problem Active 2020-06-25 02:45:24 [facility] Rheumatoid arthritis Rheu matoid arthritis Active Problem 12/03/2019 Dale Tracey Problem Active 2019-12-03 03:47:01 [facility] Long-term (current) use of other medications - High Ri sk Long-term (current) use of other medications - High Risk Active Diagnosis 02/18/2019 Dale Tracey Diagnosis Active 2019-02-18 02:46:14 Akin Shah Osteoporosis screening Oste oporosis screening Active Diagnosis 05/01/2018 Dale Tracey Diagnosis Active 2018-05-01 02:48:52 Akin Shah Crohn's disease Croh n's disease Active Problem 10/17/2016 Dalekath Tracey Problem Active 2016-10-17 03:47:59 Akin Shah RENAL INSUFFICIENCY REFUGIO L INSUFFICIENCY Active Problem 10/17/2016 Dalekath Tracey Problem Active 2016-10-17 03:47:59 Akin Shah 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 Active Problem 10/17/2016 Dalekath Tracey Problem Active 2016-10-17 03:47:59 kAin Shah Lumbar Radiculopathy Lumb ar Radiculopathy Active Problem 10/17/2016 Dalekath Tracey Problem Active 2016-10-17 03:47:59 Akin Shah Rheumatoid arthritis with unknown rheumatoid factor [facility] Rheumatoid arthritis with unknown rheumatoid factor status Active Problem 02/01/2016 Dalekath Tracey Problem Active 2016-02-01 02:59:54 Akin Shah halfway (current) use of opiate analgesic halfway (current) use of opiate analgesic Active Diagnosis 05/28/2019 Dale Tracey Diagnosis Active 2019-05-28 02:46:55 Akin Shah Degeneration of lumbar or lumbosacral intervertebral d isc Degeneration of lumbar or lumbosacral intervertebral disc Active Diagnosis 06/17/2014 Dalekath Tracey Diagnosis Active 2014-06-17 02:55:40 Akin Shah Spasm of muscle Spas m of muscle Active Diagnosis 06/17/2014 Dale Tracey Diagnosis Active 2014-06-17 02:55:40 Akin Shah Unspecified drug dependence Un specified drug dependence Active Diagnosis 08/12/2014 Dale Tracey Diagnosis Active 2014-08-12 03:03:29 Akin Shah Hand pain, right Hand pain, right Active Diagnosis 12/10/2015 Dale Tracey Diagnosis Active 2015-12-10 04:08:55 Akin Shah Hand pain, left Hand pain, left Active Diagnosis 12/10/2015 Dale Tracey Diagnosis Active 2015-12-10 04:08:55 Akin Shah Rheumatoid arthritis Rheu matoid arthritis Active Problem 06/25/2020 Dale Tracey Problem Active 2020-06-25 02:45:24 Akin Shah Immunocompromised state Immu nocompromised state Active Problem 06/25/2020 Dale Tracey Problem Active 2020-06-25 02 :45:24 Akin Shah Allergies, Adverse Reactions, Alerts Allergy Name Allergy Type Status Severity Reaction(s) Onset Date Inacti ve Date Treating Clinician Comments Source Methotrexate Methotrexate Active PNA 2020-05-05 00:00:00 Akin Shah Plaquenil Plaquenil Active hives 2020-05-05 00:00:00 Akin Shah HYDROXYCHLOROQUINE SULFATE Allergy to substance Active 2018-09-01 00:00:00 [facility] ice Plaquenil Allergy to substance Active [facility] Social History Social Habit Start Date Stop Date Quantity Comments Source Sex Assigned At MD Fried Social History 2020-04-26 04:59:00 2020-04-26 04:59:00 Akin Shah TobaccoUse: 2016-11-30 00:00:00 2016-11-30 00:00:00 Akin Shah Smoking Status Start Date Stop Date Source Former Smoker [place] jacobo Medications Ordered Medication Name Filled Medication Name Start Date Stop Da te Current Medication? Ordering Clinician Indication Dosage Frequency Signature (SIG) Comments Components Source Humira 2020-06-25 02:45:24 Yes [facility] Vitamin B-12 2020-05-07 02:45:34 Yes Kirk Hanson 1 tablet [facility] Centrum Silver Adult 50+ 2020-05-07 02:45:34 Yes Sterling mbriz 1 tablet [facility] Simvastatin 2020-05-07 02:45:34 Yes Kirk Hanson 1 tablet in the evening [facility] Pentoxifylline 2020-05-07 02:45:34 Yes Kirk Hanson 1 tablet with meals [facility] Claritin 2020-05-07 02:45:34 Yes Kirk Hanson 1 t ablet [facility] Zinc 2020-05-07 02:45:34 Yes Kirk Hanson 1 table t [facility] Lisinopril 2020-05-07 02:45:34 Yes Kirk Hanson 1 tablet [facility] Lyrica 2020-05-07 02:45:34 Yes Kirk Hanson 1 cap nichol [facility] Allopurinol 2020-05-07 02:45:34 Yes Kirk Hanson 1 tablet [facility] Omeprazole 2020-05-07 02:45:34 Yes Kirk Hanson 1 capsule [facility] Vitamin D-3 2020-05-07 02:45:34 Yes Kirk Hanson 1 capsule [facility] Vitamin C 2020-05-07 02:45:34 Yes Kirk Hanson 1 capsule [facility] Sulfasalazine 2020-05-07 02:45:34 Yes Kirk Hanson 1 tablet [facility] Folic Acid 2020-05-07 02:45:34 Yes Kirk Hanson TAKE ONE TABLET BY MOUTH DAILY [facility] Synvisc One 2019-12-22 00:00:00 Yes Kirk Hanson 6ml [facility] Prednisone Taper 2019-08-25 00:00:00 Yes Ricky Tracey as directed [facility] Sulfasalazine 2019-07-09 00:00:00 Yes Wajeeha Kassie 1 tablet [facility] Hydrocodone-Acetaminophen 2019-06-18 00:00:00 Yes Wajeeh a Kassie 1 tablet as needed [facility] Humira 2019-05-28 02:46:55 Yes Wajeeha Kassie 0.8 ml [facility] Fish Oil 2019-05-28 02:46:55 Yes Wajeeha Kassie 1 capsule [facility] Vascepa 2019-05-28 02:46:55 Yes Wajeeha Kassie 2 capsules with meals [facility] Folic Acid 2019-05-14 00:00:00 Yes Kirk Hanson 1 tablet [facility] Folic Acid 2019-01-30 00:00:00 Yes Ricky Tracey 1 tablet [facility] Hydrocodone-Acetaminophen 2019-01-07 03:47:15 Yes Doreen Lofton 1 tablet as needed [facility] Folic Acid 2019-01-07 03:47:15 Yes Doreen Lofton TAKE ONE TABLET BY MOUTH DAILY EXCEPT FOR SATURDAY DIRECTED [facility] Apriso 2018-05-01 02:48:52 Yes Doreen Lofton 4 capsules in the morning [facility] Tizanidine HCl 2018-05-01 02:48:52 Yes Doreen Lofton 1 tablet as needed [facility] Sulfasalazine 2017-12-01 00:00:00 Yes Doreen Lofton 1 tablet [facility] Hymovis 2017-10-02 00:00:00 Yes Ricky Tracey as directed [facility] Synvisc One 2017-09-02 00:00:00 Yes Doreen Lofton 1 injection [facility] Centrum Silver Adult 50+ 2017-06-05 02:45:49 Yes Doreen Lofton 1 tablet [facility] Simvastatin 2017-06-05 02:45:49 Yes Doreen Lofton 1 tablet in the evening [facility] Claritin 2017-06-05 02:45:49 Yes Doreen Lofton 1 tablet [facility] Fish Oil 2017-06-05 02:45:49 Yes Doreen Lofton 1 capsule [facility] Lyrica 2017-06-05 02:45:49 Yes Doreen Lofton 1 c apsule [facility] Allopurinol 2017-06-05 02:45:49 Yes Doreen Lofton 1 tablet [facility] Apriso 2017-06-05 02:45:49 Yes Doreen Lofton 4 capsules in the morning [facility] Lisinopril 2017-06-05 02:45:49 Yes Doreen Lofton 1 tablet [facility] Hydrocodone-Acetaminophen 2017-06-05 02:45:49 Yes Doreen Lofton 1 tablet as needed [facility] Humira 2017-06-05 02:45:49 Yes Doreen Lofton 0.8 ml [facility] Omeprazole 2017-06-05 02:45:49 Yes Doreen Lofton 1 capsule [facility] Vitamin C 2017-06-05 02:45:49 Yes Doreen Lofton 1 capsule [facility] Pentoxifylline 2017-06-05 02:45:49 Yes Doreen Lofton 1 tablet with meals [facility] Vitamin D-3 2017-06-05 02:45:49 Yes Doreen Lofton 1 capsule [facility] Zinc 2017-06-05 02:45:49 Yes Doreen Lofton 1 tab let [facility] Vitamin B-12 2017-06-05 02:45:49 Yes Doreen Lofton 1 tablet [facility] Methotrexate (Anti-Rheumatic) 2017-03-07 02:46:24 Yes Wa jeeha Kassie as directed [facility] Sulfasalazine 2017-02-28 00:00:00 Yes Doreen Lofton 1 tablet [facility] Hydrocodone-Acetaminophen 2016-12-30 00:00:00 Yes Wajeeh a Kassie 1 tablet as needed [facility] Sulfamethoxazole-TMP DS 2016-12-20 03:50:55 Yes Wajeeha Kassie 1 tablet [facility] Folic Acid 2016-09-04 02:58:38 Yes Wajeeha Kassie TAKE DIRECTED BY MOUTH EVERY DAY EXCEPT FOR SATURDAY [facility] Folic Acid 2016-06-07 03:06:20 Yes Wajeeha Kassie TAKE DIRECTED BY MOUTH EVERY DAY EXCEPT FOR SATURDAY Sebastian [facility] Humira Pen 2015-11-12 00:00:00 Yes Wajeeha Kassie 0.8 [facility] Nexium 2015-10-18 03:47:19 Yes Wajeeha Kassie 1 c apsule [facility] Trilipix 2015-10-18 03:47:19 Yes Wajeeha Kassie 1 capsule [facility] Folic Acid 2015-08-17 00:00:00 Yes Wajeeha Kassie 1 tablet [facility] PredniSONE 2015-05-26 00:00:00 Yes Wajeeha Kassie 1 tab [facility] Methotrexate (Anti-Rheumatic) 2015-02-18 00:00:00 Yes Wa jeeha Kassie as directed [facility] Folic Acid 2015-02-18 00:00:00 Yes Wajeeha Kassie as directed [facility] Humira Pen 2014-10-18 04:03:27 Yes Ricky Tracey 0.8 [facility] Soma 2014-08-28 02:49:52 Yes Ricky Tracey TAKE 1 TABLET BY MOUTH 3 TIMES A DAY NEEDED [facility] Hydrocodone-Acetaminophen 2014-08-12 03:30:31 Yes Ricky Tracey 1 tablet as needed [facility] Asacol 2014-08-12 03:03:29 Yes Doreen Lofton 2 t ablets [facility] Gabapentin 2014-08-12 03:03:29 Yes Doreen Lofton 1 capsule [facility] Hydrocodone-Acetaminophen 2014-05-26 00:00:00 Yes Ricky Tracey 1 tablet as needed [facility] Soma 2014-05-18 00:00:00 Yes Doreen Pintoace 1 tab let as needed [facility] allopurinol 300 mg tablet TAKE ONE TABLET BY MOUTH SHRUTHI LY allopurinol 300 mg tablet TAKE ONE TABLET BY MOUTH DAILY No allopurinol 300 mg tablet TAKE ONE TABLET BY MOUTH DAILY [facility] Apriso 0.375 gram capsule,extended release Apriso 0.37 5 gram capsule,extended release No Apriso 0.375 gram capsule,exte nded release [facility] ascorbic acid (vitamin C) 500 mg capsule ascorbic acid (vitamin C) 500 mg capsule No ascorbic acid (vitamin C) 500 mg capsule [facility] Centrum Silver one daily Centrum Silver one daily No Centrum Silver one daily [facility] Centrum Silver 0.4 mg-300 mcg-250 mcg tablet Centrum S ilver 0.4 mg-300 mcg-250 mcg tablet No Centrum Silver 0.4 mg-300 m cg-250 mcg tablet [facility] Claritin-D 1 TAB EVERY DAY prn Claritin-D 1 TAB EVERY DAY prn No Claritin-D 1 TAB EVERY DAY prn [facility] folic acid 1 mg tablet Take 1 tablet every day by oral route. folic acid 1 mg tablet Take 1 tablet every day by oral route. No 1 Q1D folic acid 1 mg tablet Take 1 tablet every day by oral route. [facility] Humira Pen 40 mg/0.8 mL subcutaneous kit 1 shot every 2 weeks Humira Pen 40 mg/0.8 mL subcutaneous kit 1 shot every 2 weeks No Humira Pen 40 mg/0.8 mL subcutaneous kit 1 shot every 2 weeks [facility] hydrocodone 10 mg-acetaminophen 325 mg tablet hydrocod one 10 mg-acetaminophen 325 mg tablet No hydrocodone 10 mg-acetam inophen 325 mg tablet [facility] lisinopril 30 mg tablet TAKE ONE TABLET BY MOUTH DAILY lisinopril 30 mg tablet TAKE ONE TABLET BY MOUTH DAILY No lisinopril 30 mg tablet TAKE ONE TABLET BY MOUTH DAILY [facility] ctice Lyrica 75 mg capsule Take 1 capsule 3 times a day by o ral route. Lyrica 75 mg capsule Take 1 capsule 3 times a day by oral route. No 1capsule(s) TID Lyrica 75 mg capsule Take 1 capsule 3 times a day by oral route. [facility] omega-3 acid ethyl esters 1 gram capsule TAKE TWO CAPS ULES BY MOUTH TWICE A DAY omega-3 acid ethyl esters 1 gram capsule TAKE TWO CAPSULES BY MOUTH TWICE A DAY No omega-3 ac id ethyl esters 1 gram capsule TAKE TWO CAPSULES BY MOUTH TWICE A DAY [facility] ice omeprazole 40 mg capsule,delayed release Take 1 capsule every day by oral route. omeprazole 40 mg capsule,delayed release Take 1 capsule every day by oral route. No omeprazole 40 mg capsule,delayed release Take 1 capsule every day by oral route. [facility] ice pentoxifylline ER 400 mg tablet,extended release pento xifylline ER 400 mg tablet,extended release No pentoxifylline ER 400 mg tablet,extended release [facility] ice simvastatin 40 mg tablet TAKE ONE TABLET BY MOUTH SHILPI Y simvastatin 40 mg tablet TAKE ONE TABLET BY MOUTH DAILY No simvastatin 40 mg tablet TAKE ONE TABLET BY MOUTH DAILY [facility] ctice sulfasalazine 500 mg tablet Take 1 table t twice a day by oral route for 30 days. sulfasalazine 500 mg tablet Take 1 table t twice a day by oral route for 30 days. No sulfasalazine 50 0 mg tablet Take 1 tablet twice a day by oral route for 30 days. [facility] ice Suprep Bowel Prep Kit 17.5 gram-3.13 gram-1.6 gram ora l solution Suprep Bowel Prep Kit 17.5 gram-3.13 gram-1.6 gram oral solution No Suprep Bowel Prep Kit 17.5 gram-3.13 gram-1.6 gram oral solution [facility] Vitamin B-12 100 mcg tablet Vitamin B-12 100 mcg tablet N o Vitamin B-12 100 mcg tablet [facility] jasmina Vitamin C 500 mg capsule,extended releas e Take 1 capsule every day by oral route. Vitamin C 500 mg capsule,extended releas e Take 1 capsule every day by oral route. No 1capsule(s) Q1D Vitamin C 500 mg capsule,extended release Take 1 capsule every day by oral route. [facility] Vitamin D3 25 mcg (1,000 unit) capsule Take 1 capsule every day by oral route. Vitamin D3 25 mcg (1,000 unit) capsule Take 1 capsule every day by oral route. No 1capsule(s) Q1D Vitamin D3 25 mcg (1,000 unit) capsule Take 1 capsule every day by oral route. [facility] zinc one daily zinc one daily No zinc one d aily [facility] zinc 50 mg tablet zinc 50 mg tablet No zinc 50 mg tablet [facility] Immunizations Ordered Immunization Name Filled Immunization Name Date Status Comments Source influenza, high dose seasonal influenza, high dose seasonal 2018 11:08:27 Completed [facility] pneumococcal polysaccharide PPV23 pneumococcal polysaccharid e PPV23 2018-10-13 09:32:00 Completed [facility] ice influenza, high dose seasonal influenza, high dose seasonal 2017 09:10:00 Completed [facility] influenza, high dose seasonal influenza, high dose seasonal 2016 15:54:44 Completed [facility] zoster live zoster live 2017-07-31 10:36:16 Completed [facility] pneumococcal conjugate PCV 13 pneumococcal conjugate PCV 13 2016 10:35:36 Completed [facility] Tdap Tdap 2016-11-18 00:00:00 Completed [facility] influenza, seasonal, injectable influenza, seasonal, injecta ble 2016-07-31 10:05:00 Completed [facility] ice Pneumococcal Conjugate, unspecified formulation Pneumo coccal Conjugate, unspecified formulation 2015-07-05 00:00:00 [facility] influenza, injectable, quadrivalent influenza, injectable, q uadrivalent 2015-07-05 00:00:00 Completed [facility] ice Vital Signs Vital Name Observation Time Observation Value Comments Source BP Diastolic 2020-04-20 00:00:00 75 mm[Hg] [facility] Height 2020-04-20 00:00:00 69 [in_i] [facility] BMI (Body Mass Index) 2020-04-20 00:00:00 37.9 kg/m2 [facility] BP Systolic 2020-04-20 00:00:00 156 mm[Hg] [facility] Body Weight 2020-04-20 00:00:00 256.4 [lb_av] [facility] Height 2020-04-14 00:00:00 69 [in_i] [facility] BP Diastolic 2020-01-11 00:00:00 89 mm[Hg] [facility] Height 2020-01-11 00:00:00 69 [in_i] [facility] BMI (Body Mass Index) 2020-01-11 00:00:00 38.9 kg/m2 [facility] BP Systolic 2020-01-11 00:00:00 160 mm[Hg] [facility] Body Weight 2020-01-11 00:00:00 263.4 [lb_av] [facility] BP Diastolic 2019-10-12 00:00:00 72 mm[Hg] [facility] Height 2019-10-12 00:00:00 69 [in_i] [facility] BMI (Body Mass Index) 2019-10-12 00:00:00 39.5 kg/m2 [facility] BP Systolic 2019-10-12 00:00:00 152 mm[Hg] [facility] Body Weight 2019-10-12 00:00:00 267.8 [lb_av] [facility] BP Diastolic 2019-04-10 00:00:00 70 mm[Hg] [facility] Height 2019-04-10 00:00:00 69 [in_i] [facility] BMI (Body Mass Index) 2019-04-10 00:00:00 39 kg/m2 [facility] BP Systolic 2019-04-10 00:00:00 120 mm[Hg] [facility] Body Weight 2019-04-10 00:00:00 264.2 [lb_av] [facility] BP Diastolic 2019-03-31 00:00:00 74 mm[Hg] [facility] Height 2019-03-31 00:00:00 69 [in_i] [facility] BMI (Body Mass Index) 2019-03-31 00:00:00 39.1 kg/m2 [facility] BP Systolic 2019-03-31 00:00:00 128 mm[Hg] [facility] Body Weight 2019-03-31 00:00:00 265 [lb_av] [facility] BP Diastolic 2019-01-12 00:00:00 66 mm[Hg] [facility] Height 2019-01-12 00:00:00 69 [in_i] [facility] BMI (Body Mass Index) 2019-01-12 00:00:00 39.6 kg/m2 [facility] BP Systolic 2019-01-12 00:00:00 130 mm[Hg] [facility] Body Weight 2019-01-12 00:00:00 268 [lb_av] [facility] Weight 2020-02-04 13:15:00 [facility] Height 2020-02-04 13:15:00 [facility] Temperature Oral (F) 2020-02-04 13:15:00 97.3 F [facility] Heart Rate 2020-02-04 13:15:00 [facility] Diastolic (mm Hg) 2020-02-04 13:15:00 [facility] Systolic (mm Hg) 2020-02-04 13:15:00 Sebastian [facility] Weight 2019-12-22 15:45:00 [facility] Height 2019-12-22 15:45:00 [facility] Temperature Oral (F) 2019-12-22 15:45:00 97.5 F [facility] Heart Rate 2019-12-22 15:45:00 [facility] Diastolic (mm Hg) 2019-12-22 15:45:00 [facility] Systolic (mm Hg) 2019-12-22 15:45:00 Sebastian [facility] [place] Weight 2019-05-19 13:45:00 [facility] Height 2019-05-19 13:45:00 [facility] Temperature Oral (F) 2019-05-19 13:45:00 98.1 F [facility] Heart Rate 2019-05-19 13:45:00 [facility] Diastolic (mm Hg) 2019-05-19 13:45:00 [facility] Systolic (mm Hg) 2019-05-19 13:45:00 Sebastian [facility] [place] Weight 2019-01-01 14:00:00 [facility] Height 2019-01-01 14:00:00 [facility] Temperature Oral (F) 2019-01-01 14:00:00 97.9 F [facility] Heart Rate 2019-01-01 14:00:00 [facility] Diastolic (mm Hg) 2019-01-01 14:00:00 [facility] Systolic (mm Hg) 2019-01-01 14:00:00 Sebastian [facility] [place] Weight 2018-09-01 15:45:00 [facility] Height 2018-09-01 15:45:00 [facility] Temperature Oral (F) 2018-09-01 15:45:00 98.1 F [facility] Heart Rate 2018-09-01 15:45:00 [facility] Diastolic (mm Hg) 2018-09-01 15:45:00 [facility] Systolic (mm Hg) 2018-09-01 15:45:00 [facility] Weight 2018-08-20 13:00:00 [facility] Height 2018-08-20 13:00:00 [facility] Temperature Oral (F) 2018-08-20 13:00:00 97.4 F [facility] Rate 2018-08-20 13:00:00 [facility] Diastolic (mm Hg) 2018-08-20 13:00:00 [facility] Systolic (mm Hg) 2018-08-20 13:00:00 [facility] Weight 2018-04-22 13:00:00 [facility] Height 2018-04-22 13:00:00 [facility] Temperature Oral (F) 2018-04-22 13:00:00 97.9 F [facility] Rate 2018-04-22 13:00:00 [facility] Diastolic (mm Hg) 2018-04-22 13:00:00 [facility] Systolic (mm Hg) 2018-04-22 13:00:00 [facility] BP Diastolic 2018-01-21 00:00:00 80 mm[Hg] [facility] Height 2018-01-21 00:00:00 69 [in_i] [facility] BP Systolic 2018-01-21 00:00:00 158 mm[Hg] [facility] Weight 2017-12-23 16:45:00 [facility] Height 2017-12-23 16:45:00 [facility] Temperature Oral (F) 2017-12-23 16:45:00 97.7 F [facility] Heart Rate 2017-12-23 16:45:00 [facility] Diastolic (mm Hg) 2017-12-23 16:45:00 [facility] Systolic (mm Hg) 2017-12-23 16:45:00 [facility] Weight 2017-10-22 14:00:00 [facility] Height 2017-10-22 14:00:00 [facility] Temperature Oral (F) 2017-10-22 14:00:00 98.7 F [facility] Rate 2017-10-22 14:00:00 [facility] Diastolic (mm Hg) 2017-10-22 14:00:00 [facility] Systolic (mm Hg) 2017-10-22 14:00:00 [facility] BP Diastolic 2017-10-14 00:00:00 82 mm[Hg] [facility] Height 2017-10-14 00:00:00 69 [in_i] [facility] BMI (Body Mass Index) 2017-10-14 00:00:00 38.7 kg/m2 [facility] BP Systolic 2017-10-14 00:00:00 148 mm[Hg] [facility] Body Weight 2017-10-14 00:00:00 262 [lb_av] [facility] Weight 2017-09-02 15:00:00 [facility] Height 2017-09-02 15:00:00 [facility] Temperature Oral (F) 2017-09-02 15:00:00 97.9 F [facility] Rate 2017-09-02 15:00:00 [facility] Diastolic (mm Hg) 2017-09-02 15:00:00 [facility] Systolic (mm Hg) 2017-09-02 15:00:00 [facility] BP Diastolic 2017-07-31 00:00:00 72 mm[Hg] [facility] Height 2017-07-31 00:00:00 69 [in_i] [facility] BMI (Body Mass Index) 2017-07-31 00:00:00 38.8 kg/m2 [facility] BP Systolic 2017-07-31 00:00:00 134 mm[Hg] [facility] Body Weight 2017-07-31 00:00:00 263 [lb_av] [facility] Weight 2017-06-03 18:15:00 [facility] Height 2017-06-03 18:15:00 [facility] Temperature Oral (F) 2017-06-03 18:15:00 98.4 F [facility] Heart Rate 2017-06-03 18:15:00 [facility] Diastolic (mm Hg) 2017-06-03 18:15:00 [facility] Systolic (mm Hg) 2017-06-03 18:15:00 [facility] Weight 2017-02-28 13:15:00 [facility] Height 2017-02-28 13:15:00 [facility] Temperature Oral (F) 2017-02-28 13:15:00 98.1 F [facility] Rate 2017-02-28 13:15:00 [facility] Diastolic (mm Hg) 2017-02-28 13:15:00 [facility] Systolic (mm Hg) 2017-02-28 13:15:00 [facility] BP Diastolic 2017-01-28 00:00:00 62 mm[Hg] [facility] Height 2017-01-28 00:00:00 69 [in_i] [facility] BMI (Body Mass Index) 2017-01-28 00:00:00 38.7 kg/m2 [facility] BP Systolic 2017-01-28 00:00:00 120 mm[Hg] [facility] Body Weight 2017-01-28 00:00:00 262 [lb_av] [facility] Weight 2016-11-30 14:15:00 [facility] Height 2016-11-30 14:15:00 [facility] Temperature Oral (F) 2016-11-30 14:15:00 96.3 F [facility] Heart Rate 2016-11-30 14:15:00 [facility] Diastolic (mm Hg) 2016-11-30 14:15:00 [facility] Systolic (mm Hg) 2016-11-30 14:15:00 [facility] BP Diastolic 2016-11-26 00:00:00 77 mm[Hg] [facility] Height 2016-11-26 00:00:00 69 [in_i] [facility] BMI (Body Mass Index) 2016-11-26 00:00:00 38.5 kg/m2 [facility] BP Systolic 2016-11-26 00:00:00 116 mm[Hg] [facility] Body Weight 2016-11-26 00:00:00 261 [lb_av] [facility] BP Diastolic 2016-11-22 00:00:00 76 mm[Hg] [facility] Height 2016-11-22 00:00:00 69 [in_i] [facility] BMI (Body Mass Index) 2016-11-22 00:00:00 39.7 kg/m2 [facility] BP Systolic 2016-11-22 00:00:00 119 mm[Hg] [facility] Body Weight 2016-11-22 00:00:00 269 [lb_av] [facility] BP Diastolic 2016-09-05 00:00:00 68 mm[Hg] [facility] Height 2016-09-05 00:00:00 71 [in_i] [facility] BMI (Body Mass Index) 2016-09-05 00:00:00 36.8 kg/m2 [facility] BP Systolic 2016-09-05 00:00:00 114 mm[Hg] [facility] Body Weight 2016-09-05 00:00:00 264 [lb_av] [facility] Weight 2016-08-30 13:30:00 [facility] Height 2016-08-30 13:30:00 [facility] Temperature Oral (F) 2016-08-30 13:30:00 102.1 F [facility] Rate 2016-08-30 13:30:00 [facility] Diastolic (mm Hg) 2016-08-30 13:30:00 [facility] Systolic (mm Hg) 2016-08-30 13:30:00 [facility] BP Diastolic 2016-07-31 00:00:00 84 mm[Hg] [facility] Height 2016-07-31 00:00:00 71 [in_i] [facility] BMI (Body Mass Index) 2016-07-31 00:00:00 37.4 kg/m2 [facility] BP Systolic 2016-07-31 00:00:00 143 mm[Hg] [facility] Body Weight 2016-07-31 00:00:00 268 [lb_av] [facility] Weight 2016-05-31 13:15:00 [facility] Height 2016-05-31 13:15:00 [facility] Temperature Oral (F) 2016-05-31 13:15:00 97.9 F [facility] Heart Rate 2016-05-31 13:15:00 [facility] Weight 2016-05-03 13:15:00 [facility] Height 2016-05-03 13:15:00 [facility] Temperature Oral (F) 2016-05-03 13:15:00 97.3 F [facility] Rate 2016-05-03 13:15:00 [facility] Diastolic (mm Hg) 2016-05-03 13:15:00 [facility] Systolic (mm Hg) 2016-05-03 13:15:00 [facility] Weight 2016-02-01 13:15:00 [facility] Height 2016-02-01 13:15:00 [facility] Temperature Oral (F) 2016-02-01 13:15:00 98.4 F [facility] Heart Rate 2016-02-01 13:15:00 [facility] Diastolic (mm Hg) 2016-02-01 13:15:00 [facility] Systolic (mm Hg) 2016-02-01 13:15:00 [facility] Weight 2015-08-17 14:15:00 [facility] Height 2015-08-17 14:15:00 [facility] Temperature Oral (F) 2015-08-17 14:15:00 97.6 F [facility] Rate 2015-08-17 14:15:00 [facility] Diastolic (mm Hg) 2015-08-17 14:15:00 [facility] Systolic (mm Hg) 2015-08-17 14:15:00 [facility] Weight 2015-05-26 14:00:00 [facility] Height 2015-05-26 14:00:00 [facility] Temperature Oral (F) 2015-05-26 14:00:00 98.1 F [facility] Rate 2015-05-26 14:00:00 [facility] Diastolic (mm Hg) 2015-05-26 14:00:00 [facility] Systolic (mm Hg) 2015-05-26 14:00:00 [facility] Weight 2014-07-07 13:00:00 [facility] Height 2014-07-07 13:00:00 [facility] Temperature Oral (F) 2014-07-07 13:00:00 98.8 F [facility] Rate 2014-07-07 13:00:00 [facility] Diastolic (mm Hg) 2014-07-07 13:00:00 [facility] Systolic (mm Hg) 2014-07-07 13:00:00 [facility] Weight 2014-05-18 13:00:00 [facility] Height 2014-05-18 13:00:00 [facility] Temperature Oral (F) 2014-05-18 13:00:00 98.4 F [facility] Heart Rate 2014-05-18 13:00:00 [facility] Diastolic (mm Hg) 2014-05-18 13:00:00 [facility] Systolic (mm Hg) 2014-05-18 13:00:00 Sebastian Shah Procedures Procedure Date / Time Performed Performing Clinician Altagracia govea bone density 2020-04-14 00:00:00 [facility] Colonoscopy 2017-03-26 00:00:00 [facility] electrocardiogram 2016-07-31 00:00:00 [facility] Cancer Surgery 2013-11-04 00:00:00 [facility] Eye Surgery 2010-11-04 00:00:00 [facility] Cataract Surgery Complex 2009-11-04 00:00:00 [facility] Orthopedic Surgery 2008-11-04 00:00:00 [facility] Knee Surgery 2008-11-04 00:00:00 [facility] Colonoscopy with Biopsy [facility] Plan of Care Planned Activity Planned Date Details Comments Source Diagnostic Test Pending 2020-04-14 00:00:00 CBC w/ auto diff [code = CBC w/ auto diff] [facility] Diagnostic Test Pending 2020-04-14 00:00:00 uric acid, serum or plasma [code = uric acid, serum or plasma] [facility] Diagnostic Test Pending 2020-04-14 00:00:00 lipid panel, ser um [code = lipid panel, serum] [facility] Diagnostic Test Pending 2020-04-14 00:00:00 CMP, serum or pl asma [code = CMP, serum or plasma] [facility] Diagnostic Test Pending 2020-04-14 00:00:00 PSA, serum or pl asma [code = PSA, serum or plasma] [facility] Diagnostic Test Pending 2020-04-14 00:00:00 noninvasive colo rectal cancer DNA + occult blood screening, stool [code = noninvasive colorectal cancer DNA + occult blood screening, stool] [facility] Future Appointment 2020-07-19 09:30:00 Hank Higgins, [address]; [address], [place] [address] [facility] Instructions [facility] Encounters Start Date/Time End Date/Time Encounter Type Admission Type Attendi [facility] Facility Care Department Encounter ID Source 2020-06-27 00:00:00 2020-06-27 00:00:00 Aliya Fernandez: [address], [address], [place] [address], Ph. [facility] - [facility] - VM_HOU_Care Management [id number] [facility] 2020-06-23 11:02:00 2020-06-23 11:02:00 Outpatient Ricky Tracey MD [place] [id number] Dale Tracey MD 2020-05-10 08:00:00 2020-06-08 23:59:00 Outpatient Meng Rodriguez [id number] 2020-05-05 08:15:00 2020-05-05 08:15:00 Outpatient Ricky Tracey MD PA [id number] Dale Tracey MD 2020-05-02 16:53:00 2020-05-02 16:53:00 Outpatient Ricky Tracey MD PA [id number] Dale Tracey MD 2020-04-25 12:47:00 2020-04-25 23:59:00 Outpatient Lasha Fofana [facility] [id number] 2020-04-25 00:00:00 2020-04-25 23:59:00 Outpatient MDA MDA [id number] MD Fried 2020-04-20 00:00:00 2020-04-20 00:00:00 Lasha Kaur MD: [address], [address], [place] [address], Ph. [facility] - VM_HOU[place] [id number] [facility] 2020-04-14 00:00:00 2020-04-14 00:00:00 Lasha Kaur MD: [address], [address], [place] [address], Ph. [facility] - [facility]HOU[facility] [id number] [facility] 2020-02-04 08:15:00 2020-02-04 08:15:00 Outpatient Ricky Tracey MD PA [id number] Dale Tracey MD 2020-01-11 00:00:00 2020-01-11 00:00:00 Lasha Kaur MD: [address] [place] [address], Ph. [facility] [id number] [facility] 2019-12-22 09:45:00 2019-12-22 09:45:00 Outpatient Ricky Tracey MD PA [id number] Dale Tracey MD 2019-12-02 14:27:00 2019-12-02 14:27:00 Outpatient MD JAYCEE Tian MD [place] [id number] Dale Tracey MD 2019-10-12 00:00:00 2019-10-12 00:00:00 Lasha Kaur MD: [address] [place] [address], Ph. [facility] [id number] [facility] 2019-08-25 08:12:00 2019-08-25 08:12:00 Outpatient MD JAYCEE Tian MD PA [id number] Dale Tracey MD 2019-08-17 00:00:00 2019-08-17 00:00:00 Vickey trotter MD: [address] [place] [address], Ph. [facility] [id number] [facility] 2019-05-19 08:45:00 2019-05-19 08:45:00 Outpatient Ricky Tracey MD PA [id number] Dale Tracey MD 2019-05-14 11:17:00 2019-05-14 11:17:00 Outpatient Ricky CHAMPION [id number] Dale Tracey MD 2019-04-10 00:00:00 2019-04-10 00:00:00 Vickey trotter MD: [address] [place] [address], Ph. [facility] [id number] [facility] 2019-04-09 13:02:00 2019-04-09 13:02:00 Outpatient Ricky Tracey MD PA [id number] Dale Tracey MD 2019-03-31 00:00:00 2019-03-31 00:00:00 Meg Ward MD: [address] [address], Ph. [facility] [id number] [facility] 2019-02-17 13:44:00 2019-02-17 13:44:00 Outpatient Ricky CHAMPION [id number] Dale Tracey MD 2019-01-30 11:50:00 2019-01-30 11:50:00 Outpatient Ricky Tracey MD PA [id number] Dale Tracey MD 2019-01-12 00:00:00 2019-01-12 00:00:00 Vickey trotter MD: [address] [place] [address], Ph. [facility] [id number] [facility] 2019-01-06 16:16:00 2019-01-06 16:16:00 Outpatient Ricky Tracey MD PA [id number] Dale Tracey MD 2019-01-01 08:37:00 2019-01-01 08:37:00 Outpatient Ricky Tracey MD PA [id number] Dale Tracey MD 2019-01-01 08:00:00 2019-01-01 08:00:00 Outpatient Ricky CHAMPION [id number] Dale Tracey MD 2018-09-01 10:45:00 2018-09-01 10:45:00 Outpatient Ricky Tracey MD PA [id number] Dale Tracey MD 2018-08-20 08:34:00 2018-08-20 08:34:00 Outpatient Ricky CHAMPION [id number] Dale Tracey MD 2018-08-20 08:00:00 2018-08-20 08:00:00 Outpatient Ricky Tracey MD PA [id number] Dale Tracey MD 2018-04-28 16:25:00 2018-04-28 16:25:00 Outpatient Ricky CHAMPION [id number] Dale Tracey MD 2018-04-24 13:14:00 2018-04-24 23:59:00 Outpatient Vickey Sibley [facility] [id number] 2018-04-22 08:00:00 2018-04-22 08:00:00 Outpatient Ricky Tracey MD PA [id number] Dale Tracey MD 2018-04-21 11:26:00 2018-04-21 11:26:00 Outpatient Ricky CHAMPION [id number] Dale Tracey MD 2018-04-18 14:27:00 2018-04-18 14:27:00 Outpatient Ricky Tracey MD PA [id number] Dale Tracey MD 2018-03-20 13:47:00 2018-03-20 13:47:00 Outpatient Ricky Tracey MD PA [id number] Dale Tracey MD 2018-01-21 00:00:00 2018-01-21 00:00:00 Vickey trotter MD: [address] [place] [address], Ph. [facility] [id number] [facility] 2017-12-23 10:45:00 2017-12-23 10:45:00 Outpatient Ricky CHAMPION [id number] Dale Tracey MD 2017-12-23 08:08:00 2017-12-23 08:08:00 Outpatient Ricky CHAMPION [id number] Dale Tracey MD 2017-12-20 16:54:00 2017-12-20 16:54:00 Outpatient Ricky Tracey MD PA [id number] Dale Tracey MD 2017-10-22 08:00:00 2017-10-22 08:00:00 Outpatient Ricky Tracey MD PA [id number] Dale Tracey MD 2017-10-16 15:09:00 2017-10-16 15:09:00 Outpatient Ricky CHAMPION [id number] Dale Tracey MD 2017-10-14 00:00:00 2017-10-14 00:00:00 Vickey trotter MD: [address] [place] [address], Ph. [facility] [id number] [facility] 2017-10-02 09:07:00 2017-10-02 09:07:00 Outpatient Ricky CHAMPION [id number] Dale Tracey MD 2017-09-19 10:22:00 2017-09-19 10:22:00 Outpatient Ricky CHAMPION [id number] Dale Tracey MD 2017-09-18 15:48:00 2017-09-18 15:48:00 Outpatient Ricky CHAMPION [id number] Dale Tracey MD 2017-09-02 10:00:00 2017-09-02 10:00:00 Outpatient Ricky Tracey MD PA [id number] Dale Tracey MD 2017-08-28 00:00:00 2017-08-28 00:00:00 Vickey trotter MD: [address] [place] [address], Ph. [facility] [id number] [facility] 2017-07-31 00:00:00 2017-07-31 00:00:00 Vickey trotter MD: [address] [place] [address], Ph. [facility] [id number] [facility] 2017-06-03 13:15:00 2017-06-03 13:15:00 Outpatient Ricky Tracey MD PA [id number] Dale Tracey MD 2017-05-22 15:12:00 2017-05-22 15:12:00 Outpatient Ricky Tracey MD PA [id number] Dale Tracey MD 2017-05-03 09:18:00 2017-05-03 09:18:00 Outpatient Ricky Tracey MD PA [id number] Dale Tracey MD 2017-03-27 16:13:00 2017-03-27 16:13:00 Outpatient Ricky Tracey MD PA [id number] Dale Tracey MD 2017-03-27 11:18:00 2017-03-27 11:18:00 Outpatient Ricky Tracey MD PA [id number] Dale Tracey MD 2017-02-28 08:15:00 2017-02-28 08:15:00 Outpatient Ricky Tracey MD PA [id number] Dale Tracey MD 2017-01-28 00:00:00 2017-01-28 00:00:00 Vickey trotter MD: [address] [place] [address], Ph. [facility] [id number] [facility] 2017-01-24 10:01:00 2017-01-24 10:01:00 Outpatient Ricky Tracey MD PA [id number] Dale Tracey MD 2017-01-22 10:39:00 2017-01-22 10:39:00 Outpatient Ricky Tracey MD PA [id number] Dale Tracey MD 2016-11-30 08:15:00 2016-11-30 08:15:00 Outpatient MD Ricky Tian MD [id number] Dale Tracey MD 2016-11-26 00:00:00 2016-11-26 00:00:00 Vickey trotter MD: [address] [place] [address], Ph. [facility] [id number] [facility] 2016-11-22 00:00:00 2016-11-22 00:00:00 Vickey trotter MD: [address] [place] [address], Ph. [facility] [id number] [facility] 2016-10-16 09:40:00 2016-10-16 09:40:00 Outpatient MD Ricky Tian MD [id number] EDDIE Tracey MD 2016-09-20 15:03:00 2016-09-20 15:03:00 Outpatient MD Ricky Tian MD [id number] Dale Tracey MD 2016-09-05 00:00:00 2016-09-05 00:00:00 Vickey trotter MD: [address] [place] [address], Ph. [facility] - [facility] [id number] [facility] 2016-08-30 08:30:00 2016-08-30 08:30:00 Outpatient MD Ricky Tian MD [id number] Dale Tracey MD 2016-07-31 00:00:00 2016-07-31 00:00:00 Vickey trotter MD: [address] [place] [address], Ph. [facility] - [facility] [id number] [facility] 2016-07-11 09:15:00 2016-07-11 09:15:00 Outpatient MD Ricky Tian MD [id number] EDDIE Tracey MD 2016 10:29:00 2016 10:29:00 Outpatient MD Ricky Tian MD [id number] EDDIE Tracey MD 2016-06-27 14:35:00 2016-06-27 14:35:00 Outpatient MD Ricky Tian MD [id number] EDDIE Tracey MD 2016-05-31 08:15:00 2016-05-31 08:15:00 Outpatient MD Ricky Tian MD [id number] EDDIE Tracey MD 2016-05-28 10:58:00 2016-05-28 10:58:00 Outpatient MD Ricky Tian MD [id number] EDDIE Tracey MD 2016-05-14 16:57:00 2016-05-14 16:57:00 Outpatient MD Ricky Tian MD [id number] EDDIE Tracey MD 2016-05-03 08:15:00 2016-05-03 08:15:00 Outpatient MD Ricky Tian MD [id number] EDDIE Tracey MD 2016-04-11 08:53:00 2016-04-11 08:53:00 Outpatient MD Ricky Tian MD [id number] Dale Tracey MD 2016-04-04 15:52:00 2016-04-04 15:52:00 Outpatient MD Ricky Tian MD [id number] Dale Tracey MD 2016-03-01 12:48:00 2016-03-01 12:48:00 Outpatient MD Ricky Tian MD [id number] Dale Tracey MD 2016-02-28 08:27:00 2016-02-28 08:27:00 Outpatient MD Ricky Tian MD [id number] Dale Trcaey MD 2016-02-24 15:59:00 2016-02-24 15:59:00 Outpatient MD Ricky Tian MD [id number] Dale Tracey MD 2016-02-01 08:15:00 2016-02-01 08:15:00 Outpatient MD Ricky Tian MD [id number] EDDIE Tracey MD 2016-01-30 17:30:00 2016-01-30 17:30:00 Outpatient MD Ricky Tian MD [id number] EDDIE Tracey MD 2016-01-30 16:20:00 2016-01-30 16:20:00 Outpatient MD Ricky Tian MD [id number] EDDIE Tracey MD 2015-11-23 14:50:00 2015-11-23 14:50:00 Outpatient MD Ricky Tian MD [id number] EDDIE Tracey MD 2015-11-16 10:39:00 2015-11-16 10:39:00 Outpatient MD Ricky Tian MD [id number] EDDIE Tracey MD 2015-11-08 09:51:00 2015-11-08 09:51:00 Outpatient MD Ricky Tian MD [id number] Dale Tracey MD 2015-11-01 10:17:00 2015-11-01 10:17:00 Outpatient MD Ricky Tian MD [id number] Dale Tracey MD 2015-09-27 10:53:00 2015-09-27 10:53:00 Outpatient MD Ricky Tian MD [id number] Dale Tracey MD 2015-09-15 12:59:00 2015-09-15 12:59:00 Outpatient MD Ricky Tian MD [id number] Dale Tracey MD 2015-08-17 08:15:00 2015-08-17 08:15:00 Outpatient MD Ricky Tian MD [id number] EDDIE Tracey MD 2015-05-27 16:24:00 2015-05-27 16:24:00 Outpatient MD Ricky Tian MD [id number] Dale Tracey MD 2015-05-27 12:44:00 2015-05-27 12:44:00 Outpatient MD Ricky Tian MD [id number] Dale Tracey MD 2015-05-26 09:23:00 2015-05-26 09:23:00 Outpatient MD Ricky Tian MD [id number] EDDIE Tracey MD 2015-05-26 09:00:00 2015-05-26 09:00:00 Outpatient MD Ricky Tian MD [id number] EDDIE Tracey MD 2015-02-25 15:23:00 2015-02-25 23:59:00 Outpatient William Tracey [facility] [id number] 2014-10-14 15:44:00 2014-10-14 15:44:00 Outpatient MD Ricky Tian MD [id number] Dale Tracey MD 2014-08-23 17:55:00 2014-08-23 17:55:00 Outpatient MD Ricky Tian MD [id number] Dale Tracey MD 2014-08-10 09:05:00 2014-08-10 09:05:00 Outpatient MD Ricky Tian MD [id number] Dale Tracey MD 2014-07-29 09:25:00 2014-07-29 09:25:00 Outpatient MD Ricky Tian MD [id number] Dale Tracey MD 2014-07-23 10:27:00 2014-07-23 10:27:00 Outpatient MD Ricky Tian MD [id number] Dale Tracey MD 2014-07-07 08:00:00 2014-07-07 08:00:00 Outpatient MD Ricky Tian MD [id number] Dale Tracey MD 2014-05-27 16:04:00 2014-05-27 16:04:00 Outpatient MD Ricky Tian MD [id number] Dale Tracey MD 2014-05-26 10:58:00 2014-05-26 10:58:00 Outpatient MD Ricky Tian MD [id number] EDDIE Tracey MD 2014-05-20 17:07:00 2014-05-20 17:07:00 Outpatient MD Ricky Tian MD [id number] EDDIE Tracey MD 2014-05-18 09:51:00 2014-05-18 09:51:00 Outpatient MD Ricky Tian MD [id number] EDDIE Tracey MD 2014-05-18 08:00:00 2014-05-18 08:00:00 Outpatient MD Ricky Tian MD [id number] Dale Tracey MD Results Test Description Test Time Test Comments Results Result Comments Source CBC W Auto Differential panel - Blood 2020-04-21 15:38:00 Test Item WBC (test code = WBC) 9.45 x10*3/?L 4.23-9.07 H RBC (test code = RBC) 3.55 10*12/L 4.63-6.08 L hemoglobin (test code = hemoglobin) 11.00 g/dL 13.70-17.50 L hematocrit (test code = hematocrit) 35.3 % 40.1-51.0 L MCV (test code = MCV) 99.4 fL 80.0-100.0 MCH (test code = MCH) 31.0 pg 25.7-32.2 MCHC (test code = MCHC) 31.2 g/dL 32.3-36.5 L RDW-SD (test code = RDW-SD) 54.1 fL 35.1-43.9 H platelet count (test code = platelet count) 136.0 k/uL 163.0-337. 0 L MPV (test code = MPV) 12.2 fL 7.5-11.5 H neut% (test code = neut%) 45.7 % 34.0-67.9 lymph% (test code = lymph%) 41.9 % 21.8-53.1 mon% (test code = mon%) 9.5 % 5.3-12.2 eos% (test code = eos%) 2.6 % 0.8-7.0 baso% (test code = baso%) 0.3 % 0.2-1.2 neut# (test code = neut#) 4.3 x10*3/?L 1.8-5.4 lymph# (test code = lymph#) 4.0 x10*3/?L 1.3-3.6 H mon# (test code = mon#) 0.9 x10*3/?L 0.3-0.8 H eos# (test code = eos#) 0.25 x10*3/?L 0.04-0.54 baso# (test code = baso#) 0.03 x10*3/?L 0.01-0.08 [facility] W Auto Differential panel - [id number] 15:38:00 * Test Item Value Reference Range Interpretation Comments WBC (test code = WBC) 9.45 x10*3/?L 4.23-9.07 H RBC (test code = RBC) 3.55 10*12/L 4.63-6.08 L hemoglobin (test code = hemoglobin) 11.00 g/dL 13.70-17.50 L hematocrit (test code = hematocrit) 35.3 % 40.1-51.0 L MCV (test code = MCV) 99.4 fL 80.0-100.0 MCH (test code = MCH) 31.0 pg 25.7-32.2 MCHC (test code = MCHC) 31.2 g/dL 32.3-36.5 L RDW-SD (test code = RDW-SD) 54.1 fL 35.1-43.9 H platelet count (test code = platelet count) 136.0 k/uL 163.0-337. 0 L MPV (test code = MPV) 12.2 fL 7.5-11.5 H neut% (test code = neut%) 45.7 % 34.0-67.9 lymph% (test code = lymph%) 41.9 % 21.8-53.1 mon% (test code = mon%) 9.5 % 5.3-12.2 eos% (test code = eos%) 2.6 % 0.8-7.0 baso% (test code = baso%) 0.3 % 0.2-1.2 neut# (test code = neut#) 4.3 x10*3/?L 1.8-5.4 lymph# (test code = lymph#) 4.0 x10*3/?L 1.3-3.6 H mon# (test code = mon#) 0.9 x10*3/?L 0.3-0.8 H eos# (test code = eos#) 0.25 x10*3/?L 0.04-0.54 baso# (test code = baso#) 0.03 x10*3/?L 0.01-0.08 [facility] W Auto Differential panel - [id number] 15:38:00 * Test Item Value Reference Range Interpretation Comments WBC (test code = WBC) 9.45 x10*3/?L 4.23-9.07 H RBC (test code = RBC) 3.55 10*12/L 4.63-6.08 L hemoglobin (test code = hemoglobin) 11.00 g/dL 13.70-17.50 L hematocrit (test code = hematocrit) 35.3 % 40.1-51.0 L MCV (test code = MCV) 99.4 fL 80.0-100.0 MCH (test code = MCH) 31.0 pg 25.7-32.2 MCHC (test code = MCHC) 31.2 g/dL 32.3-36.5 L RDW-SD (test code = RDW-SD) 54.1 fL 35.1-43.9 H platelet count (test code = platelet count) 136.0 k/uL 163.0-337. 0 L MPV (test code = MPV) 12.2 fL 7.5-11.5 H neut% (test code = neut%) 45.7 % 34.0-67.9 lymph% (test code = lymph%) 41.9 % 21.8-53.1 mon% (test code = mon%) 9.5 % 5.3-12.2 eos% (test code = eos%) 2.6 % 0.8-7.0 baso% (test code = baso%) 0.3 % 0.2-1.2 neut# (test code = neut#) 4.3 x10*3/?L 1.8-5.4 lymph# (test code = lymph#) 4.0 x10*3/?L 1.3-3.6 H mon# (test code = mon#) 0.9 x10*3/?L 0.3-0.8 H eos# (test code = eos#) 0.25 x10*3/?L 0.04-0.54 baso# (test code = baso#) 0.03 x10*3/?L 0.01-0.08 [facility] - [facility] or Plasma 2020-04-21 15:22:00* Test Item Value Reference Range Interpretation Comments ALT (test code = ALT) 34 U/L 0-55 AST (test code = AST) 30 U/L 5-34 BUN (test code = BUN) 11.3 mg/dL 8.4-25.0 alk phos (test code = alk phos) 109 unit/L 40-150 glucose (test code = glucose) 111 mg/dL 70-99 H albumin (test code = albumin) 3.6 g/dL 3.4-5.1 creatinine (test code = creatinine) 1.04 mg/dL 0.72-1.25 eGFR non- (test code = eGFR non-) > 60 total bilirubin (test code = total bilirubin) 0.3 mg/dL 0.2-1.2 eGFR - (test code = eGFR - ) >60 sodium (test code = sodium) 140 mEq/L 135-145 potassium (test code = potassium) 4.5 mEq/L 3.5-5.3 chloride (test code = chloride) 108 mmol/L 98-110 total protein (test code = total protein) 7.2 g/dL 6.1-8.2 calcium (test code = calcium) 9.2 mg/dL 9.0-10.2 CO2 (test code = CO2) 27.1 mmol/L 20.0-32.0 anion gap (test code = anion gap) 5 calc [facility] - [facility] or [id number] 15:22:00* Test Item Value Reference Range Interpretation Comments HDL (test code = HDL) 36 mg/dL L triglyceride (test code = triglyceride) 383 mg/dL <150 H VLDL (calculated) (test code = VLDL (calculated)) 77 mg/dL cholesterol/HDL ratio (test code = cholesterol/HDL ratio) 3.6 mg/dL non-HDL cholesterol (calculated) (test code = non-HDL cholesterol (calculated)) 92 mg/dL <160 cholesterol (test code = cholesterol) 128 mg/dL <200 Cholesterol in LDL [Mass/volume] in Serum or Plasma (t est code = 2089-1) 15 mg/dL <130 [facility] or [id number] 15:22:00* Test Item Value Reference Range Interpretation Comments PSA, total (test code = PSA, total) 0.71 NG/mL <4.00 [facility]Mass/volume] in Serum or [id number] 15:22:00 * Test Item Value Reference Range Interpretation Comments uric acid (test code = uric acid) 4.6 mg/dL 3.5-7.2 [facility] - [facility] or Plasma 2020-04-21 15:22:00* Test Item Value Reference Range Interpretation Comments ALT (test code = ALT) 34 U/L 0-55 AST (test code = AST) 30 U/L 5-34 BUN (test code = BUN) 11.3 mg/dL 8.4-25.0 alk phos (test code = alk phos) 109 unit/L 40-150 glucose (test code = glucose) 111 mg/dL 70-99 H albumin (test code = albumin) 3.6 g/dL 3.4-5.1 creatinine (test code = creatinine) 1.04 mg/dL 0.72-1.25 eGFR non- (test code = eGFR non-) > 60 total bilirubin (test code = total bilirubin) 0.3 mg/dL 0.2-1.2 eGFR - (test code = eGFR - ) >60 sodium (test code = sodium) 140 mEq/L 135-145 potassium (test code = potassium) 4.5 mEq/L 3.5-5.3 chloride (test code = chloride) 108 mmol/L 98-110 total protein (test code = total protein) 7.2 g/dL 6.1-8.2 calcium (test code = calcium) 9.2 mg/dL 9.0-10.2 CO2 (test code = CO2) 27.1 mmol/L 20.0-32.0 anion gap (test code = anion gap) 5 calc [facility] - Serum or [id number] 15:22:00* Test Item Value Reference Range Interpretation Comments HDL (test code = HDL) 36 mg/dL L triglyceride (test code = triglyceride) 383 mg/dL <150 H VLDL (calculated) (test code = VLDL (calculated)) 77 mg/dL cholesterol/HDL ratio (test code = cholesterol/HDL ratio) 3.6 mg/dL non-HDL cholesterol (calculated) (test code = non-HDL cholesterol (calculated)) 92 mg/dL <160 cholesterol (test code = cholesterol) 128 mg/dL <200 Cholesterol in LDL [Mass/volume] in Serum or Plasma (t est code = 2089-1) 15 mg/dL <130 [facility] or [id number] 15:22:00* Test Item Value Reference Range Interpretation Comments PSA, total (test code = PSA, total) 0.71 NG/mL <4.00 [facility] CenterU[facility] [Mass/volume] in Serum or [id number] 15:22:00 * Test Item Value Reference Range Interpretation Comments uric acid (test code = uric acid) 4.6 mg/dL 3.5-7.2 [facility] - Serum or Plasma 2020-04-21 15:22:00* Test Item Value Reference Range Interpretation Comments ALT (test code = ALT) 34 U/L 0-55 AST (test code = AST) 30 U/L 5-34 BUN (test code = BUN) 11.3 mg/dL 8.4-25.0 alk phos (test code = alk phos) 109 unit/L 40-150 glucose (test code = glucose) 111 mg/dL 70-99 H albumin (test code = albumin) 3.6 g/dL 3.4-5.1 creatinine (test code = creatinine) 1.04 mg/dL 0.72-1.25 eGFR non- (test code = eGFR non-) > 60 total bilirubin (test code = total bilirubin) 0.3 mg/dL 0.2-1.2 eGFR - (test code = eGFR - ) >60 sodium (test code = sodium) 140 mEq/L 135-145 potassium (test code = potassium) 4.5 mEq/L 3.5-5.3 chloride (test code = chloride) 108 mmol/L 98-110 total protein (test code = total protein) 7.2 g/dL 6.1-8.2 calcium (test code = calcium) 9.2 mg/dL 9.0-10.2 CO2 (test code = CO2) 27.1 mmol/L 20.0-32.0 anion gap (test code = anion gap) 5 calc [facility] - Serum or [id number] 15:22:00* Test Item Value Reference Range Interpretation Comments HDL (test code = HDL) 36 mg/dL L triglyceride (test code = triglyceride) 383 mg/dL <150 H VLDL (calculated) (test code = VLDL (calculated)) 77 mg/dL cholesterol/HDL ratio (test code = cholesterol/HDL ratio) 3.6 mg/dL non-HDL cholesterol (calculated) (test code = non-HDL cholesterol (calculated)) 92 mg/dL <160 cholesterol (test code = cholesterol) 128 mg/dL <200 Cholesterol in LDL [Mass/volume] in Serum or Plasma (t est code = 2089-1) 15 mg/dL <130 [facility] or [id number] 15:22:00* Test Item Value Reference Range Interpretation Comments PSA, total (test code = PSA, total) 0.71 NG/mL <4.00 [facility] CenterUrate [Mass/volume] in Serum or [id number] 15:22:00 * Test Item Value Reference Range Interpretation Comments uric acid (test code = uric acid) 4.6 mg/dL 3.5-7.2 [facility] CenterProstate specific Ag [Mass/volume] in Serum or Plasma 2017-10-16 07:54:00* Test Item Value Reference Range Interpretation Comments PSA, total (test code = PSA, total) 0.53 NG/mL <4.00 [facility] - Serum or Plasma 2017-08-01 14:01:00* Test Item Value Reference Range Interpretation Comments ALT (test code = ALT) 33 U/L 0-55 AST (test code = AST) 36 U/L 5-34 H BUN (test code = BUN) 17.3 mg/dL 8.4-25.7 alk phos (test code = alk phos) 93 unit/L 40-150 glucose (test code = glucose) 106 mg/dL 70-99 H albumin (test code = albumin) 3.5 g/dL 3.5-5.0 creatinine (test code = creatinine) 1.29 mg/dL 0.72-1.25 H eGFR non- (test code = eGFR non-chelsy n spanish) 55 mL/min/1.73m2 >60 L total bilirubin (test code = total bilirubin) 0.4 mg/dL 0.2-1.2 eGFR - (test code = eGFR - ) >60 >60 sodium (test code = sodium) 143 mEq/L 136-145 potassium (test code = potassium) 4.2 mEq/L 3.5-5.1 chloride (test code = chloride) 110 mmol/L 98-107 H total protein (test code = total protein) 7.1 g/dL 6.4-8.3 calcium (test code = calcium) 9.1 mg/dL 8.8-10.0 CO2 (test code = CO2) 21.0 mmol/L 23.0-31.0 L anion gap (test code = anion gap) 12 calc [facility] - Serum or [id number] 10:52:00* Test Item Value Reference Range Interpretation Comments HDL (test code = HDL) 34 mg/dL 40-60 L triglyceride (test code = triglyceride) 343 mg/dL 0-149 H VLDL calc. (test code = VLDL calc.) 69 mg/dL cholesterol/HDL ratio (test code = cholesterol/HDL ratio) 4.2 mg/dL non-HDL cholesterol calc. (test code = non-HDL cholesterol c alc.) 110 mg/dL 0-160 cholesterol (test code = cholesterol) 144 mg/dL 0-199 LDL calc. (test code = LDL calc.) 41 mg/dL 0-130 [facility] CenterUrate [Mass/volume] in Serum or [id number] 10:52:00 * Test Item Value Reference Range Interpretation Comments uric acid (test code = uric acid) 4.9 mg/dL 3.5-7.2 [facility] 1999 [facility] - Serum or Plasma 2017-01-29 07:23:00* Test Item Value Reference Range Interpretation Comments glucose (test code = glucose) 102 mg/dL 65-99 H urea nitrogen (BUN) (test code = urea nitrogen (BUN)) 19 mg/dL 7-25 creatinine (test code = creatinine) 1.23 mg/dL 0.70-1.25 eGFR non-afr. spanish (test code = eGFR non-afr. spanish) 60 mL/min/1.73m2 > or = 60 eGFR (test code = eGFR ) 69 mL/min/1.73m2 > or = 60 BUN/creatinine ratio (test code = BUN/creatinine ratio) not applica ble 6-22 sodium (test code = sodium) 140 mmol/L 135-146 potassium (test code = potassium) 4.1 mmol/L 3.5-5.3 chloride (test code = chloride) 106 mmol/L 98-110 carbon dioxide (test code = carbon dioxide) 26 mmol/L 20-31 calcium (test code = calcium) 9.2 mg/dL 8.6-10.3 protein, total (test code = protein, total) 7.2 g/dL 6.1-8.1 albumin (test code = albumin) 4.1 g/dL 3.6-5.1 globulin (test code = globulin) 3.1 g/dL (calc) 1.9-3.7 albumin/globulin ratio (test code = albumin/globulin ratio) 1.3 (calc) 1.0-2.5 bilirubin, total (test code = bilirubin, total) 0.5 mg/dL 0.2-1. 2 alkaline phosphatase (test code = alkaline phosphatase) 112 U/L 40-115 AST (test code = AST) 38 U/L 10-35 H ALT (test code = ALT) 43 U/L 9-46 [facility] - Serum or [id number] 07:23:00* Test Item Value Reference Range Interpretation Comments cholesterol, total (test code = cholesterol, total) 131 mg/dL 12 5-200 HDL cholesterol (test code = HDL cholesterol) 39 mg/dL > or = 4 0 L triglycerides (test code = triglycerides) 302 mg/dL <150 H LDL-cholesterol (test code = LDL-cholesterol) 32 mg/dL (calc) <130 chol/HDLC ratio (test code = chol/HDLC ratio) 3.4 (calc) < or = 5 .0 non HDL cholesterol (test code = non HDL cholesterol) 92 mg/dL (mario c) [facility] CenterC[id number] 00:00:00Rate & RhythmQrsPR IntervalQRS DurationQT IntervalVillage Medical Center Of [facility]
[2020-07-16 11:29] LABS: ALBUMIN 3.9 g/dL (3.5-5.0); ALBUMIN/GLOBULIN RATIO 1.3 (0.8-2.0); ANION GAP 20.2 mmol/L (8-16); CALCIUM 8.6 mg/dL (8.4-10.2); CREATININE, SERUM 1.34 mg/dL (0.72-1.25); POTASSIUM 3.2 mmol/L (3.5-5.1)
--- NOTE | 2020-07-16 11:56 | NUR ---
NOTIFIED PHYSCIAN OF PT ATTEMPTING FOR 2ND TIME TO VOID. URINE AND CUP ALREADY AT BEDSIDE FOR PT, AND PT RE-ENCOURAGED FOR SPECIMEN.
--- NOTE | 2020-07-16 11:57 | NUR ---
GREEN SEPTIC SHEET ON CHART PER POLICY.
--- NOTE | 2020-07-16 11:59 | Diagnostic Imaging Report ---
EXAMINATION: CHEST SINGLE (PORTABLE) INDICATION: Fever. COMPARISON: None FINDINGS: TUBES and LINES: None. LUNGS: There is interstitial and patchy airspace opacities at bilateral lung bases. PLEURA: No pleural effusion or pneumothorax. HEART AND MEDIASTINUM: The cardiomediastinal silhouette is unremarkable. BONES AND SOFT TISSUES: No acute osseous lesion. Soft tissues are unremarkable. UPPER ABDOMEN: No free air under the diaphragm. IMPRESSION: Interstitial and patchy airspace opacities at bilateral lung bases compatible with multifocal pneumonia. Signed by: Nika Savage MD on 07/16/2020 11:56 AM
[2020-07-16] MEDS ORDERED: CEFEPIME 1GM/NS 0.9% 50 ML 50 ML IV STA (12:04)
[2020-07-16 12:10] LABS: COLOR,URINE YELLOW (YELLOW)
[2020-07-16 12:11] LABS: CLARITY,URINE SL CLOUDY (CLEAR); LEUKOCYTE ESTERASE ,URINE NEGATIVE (NEGATIVE); NITRITE,URINE NEGATIVE (NEGATIVE)
[2020-07-16 12:12] LABS: BILIRUBIN,URINE NEGATIVE (NEGATIVE); KETONES,URINE NEGATIVE (NEGATIVE); PROTEIN,URINE DIPSTICK 1+ (NEGATIVE); URINE UROBILINOGEN 0.2 mg/dL (0.2 - 1)
[2020-07-16 12:13] LABS: BACTERIA,URINE RARE /HPF; RBC,URINE 0-5 /HPF (0-5); WBC,URINE (MAN) 0-5 /HPF (0-5)
[2020-07-16 12:14] LABS: EPITHELIAL CELLS,URINE FEW /LPF
--- NOTE | 2020-07-16 12:14 | NUR ---
CALLED LAB FOR ETA OF COVID SWAB RESULT...
[2020-07-16] MEDS ORDERED: VANCOMYCIN 1GM/NS 250 ML 250 ML IV STA (12:17)
--- NOTE | 2020-07-16 12:17 | NUR ---
PER LAB, VERBAL, COVID SWAB REPORTED NEGATIVE.
[2020-07-16] MEDS ORDERED: SODIUM CHLORIDE 0.9% 1000ML 1,000 ML ONE (12:27)
--- NOTE | 2020-07-16 13:41 | Diagnostic Imaging Report ---
EXAM: CT Chest WITH contrast 07/16/2020 1:00 PM INDICATION: Dyspnea clinically concerning for pulmonary embolism. COMPARISON: Same day chest radiograph. TECHNIQUE: Chest was scanned utilizing a multidetector helical scanner from the lung apex through the level of the adrenal glands with administration of IV contrast. Coronal and sagittal reformations were obtained. Routine protocol was performed. IV CONTRAST: 100 mL of Omnipaque 300 COMPLICATIONS: None RADIATION DOSE: Total DLP: 567.98 mGy*cm Estimated effective dose: (DLP x 0.014 x size factor) mSv CTDIvol has been reviewed. It is below the limits set by the Radiation Protocol Committee (RPC). Dose modulation, iterative reconstruction, and/or weight based adjustment of the mA/kV was utilized to reduce the radiation dose to as low as reasonably achievable. FINDINGS: LINES/ TUBES: None. VASCULAR: There are no filling defects in the pulmonary arteries to the segmental level. The pulmonary trunk has normal caliber measuring 2.7 cm. The ascending and descending aorta have normal enhancement and caliber measuring 3.5 cm and 2.8 cm, respectively. LUNGS AND AIRWAYS: The central airways are patent and the trachea is midline. There is multifocal patchy groundglass airspace opacities in the left upper and lower lobes. Right lung is relatively clear. There is mild right apical paraseptal emphysema. PLEURA: The pleural spaces are clear. HEART AND MEDIASTINUM: The thyroid gland is normal. No mediastinal, hilar or axillary lymphadenopathy. The heart is mildly enlarged with atherosclerotic calcification of the coronary vessels. There is no pericardial effusion. UPPER ABDOMEN: Unremarkable. BONES: The visualized bony thorax is within normal limits. SOFT TISSUES: Unremarkable. IMPRESSION: 1. No evidence of pulmonary embolism to the segmental levels. 2. Multifocal patchy airspace groundglass opacities in the left upper and lower lobes compatible with multifocal pneumonia. 3. Mild cardiomegaly with atherosclerotic calcification of the coronary vessels. Signed by: Nika Savage MD on 07/16/2020 1:38 PM
--- OUTSIDE RECORDS SUMMARY | 2020-07-16 14:53 | XMS REPORT | Continuity of Care Document ---
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, RIGHT SIDE Active 04/24/2018 [facility] [place] Body mass index (BMI) 37.0-37.9, adult Active Problem Dale Pintoer Morbid (severe) obesity due to excess calories Active Problem 05/28/2019 Dale Tracey Carpal tunnel syndrome Active Problem 06/25/2020 Dale Pintoer Crohn disease Active Problem 06/25/2020 Dale Pintoer Fever, unspecified Active Problem 06/25/2020 Dale Pintoer Other half-way (current) drug therapy Active Problem Dale Tracey [...] Active 10-325 MG Orally once a day [place] 05/26/2014 Dale Trcaey Soma 1 tablet as needed Orally Active 250 MG Orally Three giselle es a day [place] 05/18/2014 Dale Tracey Vitamin B-12 1 tablet Orally Active Orally once a day [place] Naresh Tracey Centrum Silver Adult 50+ 1 tab let Orally Active Orally Once a day [facility] Dale Tracey Simvastatin 1 tablet in the ev ening Orally Active 40 MG Orally Once a day [facility] Dale Tracey Pentoxifylline 1 tablet with m eals Orally Active 400 MG Orally Twice a day [facility] Dale Tracey Apriso 4 capsules in the morni ng Orally Active 0.375 GM Orally Once a day [place] Dale Tracey Hydrocodone-Acetaminophen 1 ta blet as needed Orally Active 10-325 MG Orally twice a day [place] Dale Tracey Claritin 1 tablet Orally Active 10 MG Orally PRN [facility] Naresh Tracey Zinc 1 tablet Orally Active 50 MG Orally Once a day [facility] Naresh Tracey Lisinopril 1 tablet Orally Active 20 MG Orally Once a day [facility] Naresh Tracey Lyrica 1 capsule Orally Active 75 MG Orally Twice a da y [facility] Naresh Tracey Humira 0.8 ml Subcutaneous Active 40 MG/0.8ML Subcutaneou s every 2wks. [facility] Dale Tracey Fish Oil 1 capsule Orally Active 1000 MG Orally Once a d ay [facility] Naresh Tracey Allopurinol 1 tablet Orally Active 300 MG Orally Once a da y [facility] Dale Tracey Omeprazole 1 capsule Orally Active 40 MG Orally Once a day [facility] Naresh Tracey Vitamin D-3 1 capsule Orally Active 2000 UNIT Orally Once a day [place] Dale Tracey Vitamin C 1 capsule Orally Active Orally once a day [facility] Tracey Folic Acid TAKE ONE TABLET BY [...] 10 MG Orally [facility] [place] [facility] Fish Oil 1 capsule Orally Active 1000 MG Orally Once a d ay [place] Dale Tracey Lyrica 1 capsule Orally Active 75 MG Orally Twice a da y [place] [facility] Allopurinol 1 tablet Orally Active 300 MG Orally Once a da y [place] Dale Tracey [facility] Orally Active 0.375 GM Orally Once a day [place] Dale Tracey Lisinopril 1 tablet Orally Active 20 MG Orally Once a day [place] [facility] Hydrocodone-Acetaminophen 1 ta blet as needed Orally Active 10-325 MG Orally twice a day [place] Dale Tracey Humira 0.8 ml Subcutaneous Active 40 MG/0.8ML Subcutaneou s every 2wks. [place] Dale Tracey Omeprazole 1 capsule Orally Active 40 MG Orally Once a day [place] Dale Tracey Vitamin C 1 capsule Orally Active Orally once a [facility] [place] [facility] Pentoxifylline 1 tablet with m eals Orally Active 400 MG Orally Twice a day [place] Dale Tracey Vitamin D-3 1 capsule Orally Active 2000 UNIT Orally Once a day [place] Dale Tracey Zinc 1 tablet Orally Active 50 MG Orally Once a day [place] [facility] Vitamin B-12 1 tablet Orally Active Orally once a day [place] [facility] Sulf[facility]azine 1 tablet Orally Active 500 MG Orally twice a d ay [facility] Dale Tracey Vascepa 2 capsules with meals Orally Active 1 GM Orally Twice a day [facility] Dale Pintoer Tizanidine HCl 1 tablet as nee ded Orally Active 4 MG Orally Three times a day [place] Dale Tracey Nexium 1 capsule Orally Active 40 MG Orally Once a day [place] [facility] Tracey Trilipix 1 capsule Orally Active 135 [...] for fracture. This exam was interpreted at [id number] for RON Joshi 15. Jordan Carver M.D., cm/damion:04/25/2020 13:56:03 French Cord Binder(s): Chelsy HOLLEY(R)(M), [facility] 04/25/2020 EDDIE Khan Spine lumbar series DX [...] Tracey Temperature Oral (F) 98.8 F 07/07/2014 Adle Tracey Heart Rate 80 07/07/2014 Dale Tracey Diastolic (mm Hg) 70 07/07/2014 Dale Tracey Systolic (mm Hg) 118 07/07/2014 Dale Tracey Weight 258 05/18/2014 Dale Tracey Height 70 0 05/18/2014 Dale Tracey Temperature Oral (F) 98.4 F 05/18/2014 Dlae Tracey Heart Rate 84 05/18/2014 Dale Tracey Diastolic (mm Hg) 72 05/18/2014 Dale Tracey Systolic (mm Hg) 126 05/18/2014 Dale Tracey Encounters Location Location Details Encounter Type Encounter Number Reason For Visit Attending Provider ADM Date DC Date Status Source Ricky Tracey MD consult of MRI [id number] 05/18/20 14 05/18/2014 Dale Tracey MD consult of MRI [id number] 05/18/20 14 05/18/2014 Dale Tracey MD consult of MRI [id number] 05/18/20 14 05/18/2014 Dale Tracey MD consult of MRI [id number] 05/18/20 14 05/18/2014 Dale Tracey MD consult of MRI [id number] 05/18/20 14 05/18/2014 Dale Tracey MD consult of MRI [id number] 05/18/20 14 05/18/2014 Dale Tracey MD consult of MRI [id number] 05/18/20 14 05/18/2014 Dale Tracey MD consult of MRI [id number] 05/18/20 14 05/18/2014 Dale Tracey MD consult of MRI [id number] 05/18/20 14 05/18/2014 Dale Tracey MD consult of MRI [id number] 05/18/20 14 05/18/2014 Dale Tracey MD consult of MRI [id number] 05/18/20 14 05/18/2014 Dale Tracey MD consult of MRI [id number] 05/18/20 14 05/18/2014 Dale Tracey MD consult of MRI [id number] 05/18/20 14 05/18/2014 Dale Tracey MD consult of MRI [id number] 05/18/20 14 05/18/2014 Dale Tracey MD consult of MRI [id number] 05/18/20 14 05/18/2014 Dale Tracey MD consult of MRI [id number] 05/18/20 14 05/18/2014 Dale Tracey MD consult of MRI [id number] 05/18/20 14 05/18/2014 Dale Tracey MD consult of MRI [id number] 05/18/20 14 05/18/2014 Dale Tracey MD consult of MRI [id number] 05/18/20 14 05/18/2014 Dale Tracey MD consult of MRI [id number] 05/18/20 14 05/18/2014 Dale Tracey MD consult of MRI [id number] 05/18/20 14 05/18/2014 Dale Tracey MD consult of MRI [id number] 05/18/20 14 05/18/2014 Dale Tracey MD consult of MRI [id number] 05/18/20 14 05/18/2014 Dale Tracey MD consult of MRI [id number] 05/18/20 14 05/18/2014 Dale Tracey MD consult of MRI [id number] 05/18/20 14 05/18/2014 Dale Tracey MD consult of MRI [id number] 05/18/20 14 05/18/2014 Dale Tracey MD consult of MRI [id number] 05/18/20 14 05/18/2014 Dale Tracey MD consult of MRI [id number] 05/18/20 14 05/18/2014 Dale Tracey MD consult of MRI [id number] 05/18/20 14 05/18/2014 Dale Tracey MD consult of MRI [id number] 05/18/20 14 05/18/2014 Dale Tracey MD consult of MRI [id number] 05/18/20 14 05/18/2014 Dale Tracey MD consult of MRI [id number] 05/18/20 14 05/18/2014 Dale Tracey MD consult of MRI [id number] 05/18/20 14 05/18/2014 Dale Tracey MD consult of MRI [id number] 05/18/20 14 05/18/2014 Dale Tracey MD consult of MRI [id number] 05/18/20 14 05/18/2014 Dale Tracey MD consult of MRI [id number] 05/18/20 14 05/18/2014 Dale Tracey MD consult of MRI [id number] 05/18/20 14 05/18/2014 Dale Tracey MD consult of MRI [id number] 05/18/20 14 05/18/2014 Dale Tracey MD consult of MRI [id number] 05/18/20 14 05/18/2014 Dale Tracey MD consult of MRI [id number] 05/18/20 14 05/18/2014 Dale Tracey MD consult of MRI [id number] 05/18/20 14 05/18/2014 Dale Tracey MD [facility] [id number] 05/18/20 14 05/18/2014 Dale Tracey MD soma [place] [id number] 05/18/20 14 05/18/2014 Dale Tracey MD soma [facility] [id number] 05/18/20 14 05/18/2014 Dale Tracey MD [facility] [id number] 05/18/20 14 05/18/2014 Dale Tracey MD [facility] [id number] 05/18/20 14 05/18/2014 Dale Tracey MD [facility]a [place] [id number] 05/18/20 14 05/18/2014 Dale Tracey MD [facility] [id number] 05/18/20 14 05/18/2014 Dale Tracey MD [facility] [id number] 05/18/20 14 05/18/2014 Dale Tracey MD [facility] [id number] 05/18/20 14 05/18/2014 Dale Tracey MD [facility] [place] [id number] 05/18/20 14 05/18/2014 Dale Tracey MD [facility] [id number] 05/18/20 14 05/18/2014 Dale Tracey MD [facility]a [facility] [id number] 05/18/20 14 05/18/2014 Dale Tracey MD [facility] [id number] 05/18/20 14 05/18/2014 Dale Tracey MD [facility] [id number] 05/18/20 14 05/18/2014 Dale Tracey MD [facility] [id number] 05/18/20 14 05/18/2014 Dale Tracey MD [facility] [place] [id number] 05/18/20 14 05/18/2014 Dale Tracey MD [facility] [id number] 05/18/20 14 05/18/2014 Dale Tracey MD [facility] [id number] 05/18/20 14 05/18/2014 Dale Tracey MD [facility] [id number] 05/18/20 14 05/18/2014 Dale Tracey MD [facility] [id number] 05/18/20 14 05/18/2014 Dale Tracey MD [facility] [id number] 05/18/20 14 05/18/2014 Dale Tracey MD [facility] [place] [id number] 05/18/20 14 05/18/2014 Dale Tracey MD [facility] [place] [id number] 05/18/20 14 05/18/2014 MD hugh Ced[place] [id number] 05/18/20 14 05/18/2014 Dale Tracey MD [facility] [id number] 05/18/20 14 05/18/2014 Dale Tracey MD [facility] [id number] 05/18/20 14 05/18/2014 Dale Tracey MD [place] [id number] 05/18/20 14 05/18/2014 Dale Tracey MD [facility] [id number] 05/18/20 14 05/18/2014 Dale Tracey [place] [id number] 05/18/20 14 05/18/2014 Dale Tracey MD [facility] [id number] 05/18/20 14 05/18/2014 Dale Tracey MD [facility] [place] [id number] 05/18/20 14 05/18/2014 Dale Tracey MD [facility] [id number] 05/18/20 14 05/18/2014 Dale Tracey MD [facility] [id number] 05/18/20 14 05/18/2014 Dale Tracey MD [facility] [id number] 05/18/20 14 05/18/2014 MD hugh Cedeno [place] [id number] 05/18/20 14 05/18/2014 Dale Tracey MD [facility] [id number] 05/18/20 14 05/18/2014 Dale Tracey MD [facility] [id number] 05/18/20 14 05/18/2014 Dale Tracey MD [facility] [id number] 05/18/20 14 05/18/2014 Dale Tracey MD [facility] [id number] 05/18/20 14 05/18/2014 Dale Tracey MD [facility] [id number] 05/18/20 14 05/18/2014 Dale Tracey MD [facility] [id number] 05/18/20 14 05/18/2014 Dale Tracey MD [facility] [id number] 05/20/20 14 05/20/2014 Dale Tracey MD [facility] [id number] 05/20/20 14 05/20/2014 Dale Tracey MD [facility] [id number] 05/20/20 14 05/20/2014 Dale Tracey MD [facility] [id number] 05/20/20 14 05/20/2014 Dale Tracey MD [facility] [id number] 05/20/20 14 05/20/2014 Dale Tracey MD [facility] [id number] 05/20/20 14 05/20/2014 Dale Tracey MD [facility] [id number] 05/20/20 14 05/20/2014 Dale Tracey MD [facility] [id number] 05/20/20 14 05/20/2014 Dale Tracey MD [facility] [id number] 05/20/20 14 05/20/2014 Dale Tracey MD [facility] [id number] 05/20/20 14 05/20/2014 Dale Tracey MD [facility] [id number] 05/20/20 14 05/20/2014 Dale Tracey MD [facility] [id number] 05/20/20 14 05/20/2014 Dale Tracey MD [facility] [id number] 05/20/20 14 05/20/2014 Dale Tracey MD [facility] [id number] 05/20/20 14 05/20/2014 Dale Tracey MD [facility] [id number] 05/20/20 14 05/20/2014 Dale Tracey MD [facility] [id number] 05/20/20 14 05/20/2014 Dale Tracey MD [facility] [id number] 05/20/20 14 05/20/2014 Dale Tracey MD [facility] [id number] 05/20/20 14 05/20/2014 Dale Tracey MD [facility] [id number] 05/20/20 14 05/20/2014 Dale Tracey MD [facility] [id number] 05/20/20 14 05/20/2014 Dale Tracey MD [facility] [id number] 05/20/20 14 05/20/2014 Dale Tracey MD [facility] [id number] 05/20/20 14 05/20/2014 Dale Tracey MD [facility] [id number] 05/20/20 14 05/20/2014 Dale Tracey MD [facility] [id number] 05/20/20 14 05/20/2014 Dale Tracey MD [facility] [id number] 05/20/20 14 05/20/2014 Dale Tracey MD [facility] [id number] 05/20/20 14 05/20/2014 Dale Tracey MD [facility] [id number] 05/20/20 14 05/20/2014 Dale Tracey MD [facility] [id number] 05/20/20 14 05/20/2014 Dale Tracey MD [facility] [id number] 05/20/20 14 05/20/2014 Dale Tracey MD [facility] [id number] 05/20/20 14 05/20/2014 Dale Tracey MD [facility] [id number] 05/20/20 14 05/20/2014 Dale Tracey MD [facility] [id number] 05/20/20 14 05/20/2014 Dale Tracey MD [facility] [id number] 05/20/20 14 05/20/2014 Dale Tracey MD [facility] [id number] 05/20/20 14 05/20/2014 Dale Tracey MD [facility] [id number] 05/20/20 14 05/20/2014 Dale Tracey MD [facility] [id number] 05/20/20 14 05/20/2014 Dale Tracey MD [facility] [id number] 05/20/20 14 05/20/2014 Dale Tracey MD [facility] [id number] 05/20/20 14 05/20/2014 Dale Tracey MD [facility] [id number] 05/20/20 14 05/20/2014 Dale Tracey MD [facility] [id number] 05/20/20 14 05/20/2014 Dale Tracey MD [facility] [id number] 05/20/20 14 05/20/2014 Dale Tracey MD Hydrocodone refill [id number] 05/26/2014 05/26/2014 Dale Tracey MD Hydrocodone refill [id number] 05/26/2014 05/26/2014 Dale Tracey MD Hydrocodone refill [id number] 05/26/2014 05/26/2014 Dale Tracey MD Hydrocodone refill [id number] 05/26/2014 05/26/2014 Dale Tracey MD Hydrocodone refill [id number] 05/26/2014 05/26/2014 Dale Tracey MD Hydrocodone refill [id number] 05/26/2014 05/26/2014 Dale Tracey MD Hydrocodone refill [id number] 05/26/2014 05/26/2014 Dale Tracey MD Hydrocodone refill [id number] 05/26/2014 05/26/2014 Dale Tracey MD Hydrocodone refill [id number] 05/26/2014 05/26/2014 Dale Tracey MD Hydrocodone refill [id number] 05/26/2014 05/26/2014 Dale Tracey MD Hydrocodone refill [id number] 05/26/2014 05/26/2014 Dale Tracey MD Hydrocodone refill [id number] 05/26/2014 05/26/2014 Dale Tracey MD Hydrocodone refill [id number] 05/26/2014 05/26/2014 Dale Tracey MD Hydrocodone refill [id number] 05/26/2014 05/26/2014 Dale Tracey MD Hydrocodone refill [id number] 05/26/2014 05/26/2014 Dale Tracey MD Hydrocodone refill [id number] 05/26/2014 05/26/2014 Dale Tracey MD Hydrocodone refill [id number] 05/26/2014 05/26/2014 Dale Tracey MD Hydrocodone refill [id number] 05/26/2014 05/26/2014 Dale Tracey MD Hydrocodone refill [id number] 05/26/2014 05/26/2014 Dale Tracey MD Hydrocodone refill [id number] 05/26/2014 05/26/2014 Dale Tracey MD Hydrocodone refill [id number] 05/26/2014 05/26/2014 Dale Tracey MD Hydrocodone refill [id number] 05/26/2014 05/26/2014 Dale Tracey MD Hydrocodone refill [id number] 05/26/2014 05/26/2014 Dale Tracey MD Hydrocodone refill [id number] 05/26/2014 05/26/2014 Dale Tracey MD Hydrocodone refill [id number] 05/26/2014 05/26/2014 Dale Tracey MD Hydrocodone refill [id number] 05/26/2014 05/26/2014 Dale Tracey MD Hydrocodone refill [id number] 05/26/2014 05/26/2014 Dale Tracey MD Hydrocodone refill [id number] 05/26/2014 05/26/2014 Dale Tracey MD Hydrocodone refill [id number] 05/26/2014 05/26/2014 Dale Tracey MD Hydrocodone refill [id number] 05/26/2014 05/26/2014 Dale Tracey MD Hydrocodone refill [id number] 05/26/2014 05/26/2014 Dale Tracey MD Hydrocodone refill [id number] 05/26/2014 05/26/2014 Dale Tracey MD Hydrocodone refill [id number] 05/26/2014 05/26/2014 Dale Tracey MD Hydrocodone refill [id number] 05/26/2014 05/26/2014 Dale Tracey MD Hydrocodone refill [id number] 05/26/2014 05/26/2014 Dale Tracey MD Hydrocodone refill [id number] 05/26/2014 05/26/2014 Dale Tracey MD Hydrocodone refill [id number] 05/26/2014 05/26/2014 Dale Tracey MD Hydrocodone refill [id number] 05/26/2014 05/26/2014 Dale Tracey MD Hydrocodone refill [id number] 05/26/2014 05/26/2014 Dale Tracey MD Hydrocodone refill [id number] 05/26/2014 05/26/2014 Dale Tracey MD Hydrocodone refill [id number] 05/26/2014 05/26/2014 Dale Tracey MD lab order [id number] 05/27/20 14 05/27/2014 Dale Tracey MD lab order [id number] 05/27/20 14 05/27/2014 Dale Tracey MD lab order [id number] 05/27/20 14 05/27/2014 aDle Tracey MD lab order [id number] 05/27/20 14 05/27/2014 Dale Tracey MD lab order [id number] 05/27/20 14 05/27/2014 Dale Tracey MD lab order [id number] 05/27/20 14 05/27/2014 Dale Tracey MD lab order [id number] 05/27/20 14 05/27/2014 Dale Tracey MD lab order [id number] 05/27/20 14 05/27/2014 Dale Tracey MD lab order [id number] 05/27/20 14 05/27/2014 Dale Tracey MD lab order [id number] 05/27/20 14 05/27/2014 Dale Tracey MD lab order [id number] 05/27/20 14 05/27/2014 Dale Tracey MD lab order [id number] 05/27/20 14 05/27/2014 Dale Tracey MD lab order [id number] 05/27/20 14 05/27/2014 Dale Tracey MD lab order [id number] 05/27/20 14 05/27/2014 Dale Tracey MD lab order [id number] 05/27/20 14 05/27/2014 Dale Tracey MD lab order [id number] 05/27/20 14 05/27/2014 Dale Tracey MD lab order [id number] 05/27/20 14 05/27/2014 Dale Tracey MD lab order [id number] 05/27/20 14 05/27/2014 Dale Tracey MD lab order [id number] 05/27/20 14 05/27/2014 Dale Tracey MD lab order [id number] 05/27/20 14 05/27/2014 Dale Tracey MD lab order [id number] 05/27/20 14 05/27/2014 Dale Tracey MD lab order [id number] 05/27/20 14 05/27/2014 Dale Tracey MD lab order [id number] 05/27/20 14 05/27/2014 Dale Tracey MD lab order [id number] 05/27/20 14 05/27/2014 Dale Tracey MD lab order [id number] 05/27/20 14 05/27/2014 Dale Tracey MD lab order [id number] 05/27/20 14 05/27/2014 Dale Tracey MD lab order [id number] 05/27/20 14 05/27/2014 Dale Tracey MD lab order [id number] 05/27/20 14 05/27/2014 Dale Tracey MD lab order [id number] 05/27/20 14 05/27/2014 Dale Tracey MD lab order [id number] 05/27/20 14 05/27/2014 Dale Tracey MD lab order [id number] 05/27/20 14 05/27/2014 Dale Tracey MD lab order [id number] 05/27/20 14 05/27/2014 Dale Tracey MD lab order [id number] 05/27/20 14 05/27/2014 Dale Tracey MD lab order [id number] 05/27/20 14 05/27/2014 Dale Tracey MD lab order [id number] 05/27/20 14 05/27/2014 Dale Tracey MD lab order [id number] 05/27/20 14 05/27/2014 Dale Tracey MD lab order [id number] 05/27/20 14 05/27/2014 Dale Tracey MD lab order [id number] 05/27/20 14 05/27/2014 Dale Tracey MD lab order [id number] 05/27/20 14 05/27/2014 Dale Tracey MD lab order [id number] 05/27/20 14 05/27/2014 Dale Tracey MD lab order [id number] 05/27/20 14 05/27/2014 Dale Tracey MD F/U [id number] 07/07/20 14 07/07/2014 Dale Tracey MD F/U [id number] 07/07/20 14 07/07/2014 Dael Tracey MD F/U [id number] 07/07/20 14 07/07/2014 Dale Tracey MD F/U [id number] 07/07/20 14 07/07/2014 Dale Tracey MD F/U [id number] 07/07/20 14 07/07/2014 Dale Tracey MD F/U [id number] 07/07/20 14 07/07/2014 Dale Tracey MD F/U [id number] 07/07/20 14 07/07/2014 Dale Tracey MD F/U [id number] 07/07/20 14 07/07/2014 Dale Tracey MD F/U [id number] 07/07/20 14 07/07/2014 Dale Tracey MD F/U [id number] 07/07/20 14 07/07/2014 Dale Tracey MD F/U [id number] 07/07/20 14 07/07/2014 Dale Tracey MD F/U [id number] 07/07/20 14 07/07/2014 Dale Tracey MD F/U [id number] 07/07/20 14 07/07/2014 Dale Tracey MD F/U [id number] 07/07/20 14 07/07/2014 Dale Tracey MD F/U [id number] 07/07/20 14 07/07/2014 Dale Tracey MD F/U [id number] 07/07/20 14 07/07/2014 Dale Tracey MD F/U [id number] 07/07/20 14 07/07/2014 Dale Tracey MD F/U [id number] 07/07/20 14 07/07/2014 Dale Tracey MD F/U [id number] 07/07/20 14 07/07/2014 Dale Tracey MD F/U [id number] 07/07/20 14 07/07/2014 Dale Tracey MD F/U [id number] 07/07/20 14 07/07/2014 Dale Tracey MD F/U [id number] 07/07/20 14 07/07/2014 Dale Tracey MD F/U [id number] 07/07/20 14 07/07/2014 Dale Tracey MD F/U [id number] 07/07/20 14 07/07/2014 Dale Tracey MD F/U [id number] 07/07/20 14 07/07/2014 Dale Tracey MD F/U [id number] 07/07/20 14 07/07/2014 Dale Tracey MD F/U [id number] 07/07/20 14 07/07/2014 Dale Tracey MD F/U [id number] 07/07/20 14 07/07/2014 Dale Tracey MD F/U [id number] 07/07/20 14 07/07/2014 Dale Tracey MD F/U [id number] 07/07/20 14 07/07/2014 Dale Tracey MD F/U [id number] 07/07/20 14 07/07/2014 Dale Tracey MD F/U [id number] 07/07/20 14 07/07/2014 Dale Tracey MD F/U [id number] 07/07/20 14 07/07/2014 Dale Tracey MD F/U [id number] 07/07/20 14 07/07/2014 Dale Tracey MD F/U [id number] 07/07/20 14 07/07/2014 Dale Tracey MD F/U [id number] 07/07/20 14 07/07/2014 Dale Tracey MD [facility] [id number] 07/23/20 14 07/23/2014 Dale Tracey MD [facility] [id number] 07/23/20 14 07/23/2014 [facility] [id number] 07/23/20 14 07/23/2014 MD zeferino Cedeno [id number] 07/23/20 14 07/23/2014 MD zeferino Cedeno [id number] 07/23/20 14 07/23/2014 Dale Tracey MD [facility] [id number] 07/23/20 14 07/23/2014 Dale Tracey MD [facility] [id number] 07/23/20 14 07/23/2014 Dale Tracey MD [facility] [id number] 07/23/20 14 07/23/2014 Dale Tracey MD [facility] [id number] 07/23/20 14 07/23/2014 Dale Tracey MD [facility] [id number] 07/23/20 14 07/23/2014 Dale Tracey MD [facility] [id number] 07/23/20 14 07/23/2014 Dale Tracey MD [facility] [id number] 07/23/20 14 07/23/2014 Dale Tracey MD [facility] [id number] 07/23/20 14 07/23/2014 Dale Tracey MD [facility] [id number] 07/23/20 14 07/23/2014 Dale Tracey MD [facility] [id number] 07/23/20 14 07/23/2014 Dale Tracey MD [facility] [id number] 07/23/20 14 07/23/2014 Dale Tracey MD [facility] [id number] 07/23/20 14 07/23/2014 Dale Tracey MD [facility] [id number] 07/23/20 14 07/23/2014 Dale Tracey MD [facility] [id number] 07/23/20 14 07/23/2014 Dale Tracey MD [facility] [id number] 07/23/20 14 07/23/2014 Dale Tracey MD [facility] [id number] 07/23/20 14 07/23/2014 Dale Tracey MD [facility] [id number] 07/23/20 14 07/23/2014 Dale Tracey MD [facility] [id number] 07/23/20 14 07/23/2014 Dale Tracey MD [facility] [id number] 07/23/20 14 07/23/2014 Dale Tracey MD [facility] [id number] 07/23/20 14 07/23/2014 Dale Tracey MD [facility] [id number] 07/23/20 14 07/23/2014 Dale Tracey MD [facility] [id number] 07/23/20 14 07/23/2014 Dale Tracey MD [facility] [id number] 07/23/20 14 07/23/2014 Dale Tracey MD [facility] [id number] 07/23/20 14 07/23/2014 Dale Tracey MD [facility] [id number] 07/23/20 14 07/23/2014 Dale Tracey MD [facility] [id number] 07/23/20 14 07/23/2014 Dale Tracey MD [facility] [id number] 07/23/20 14 07/23/2014 Dale Tracey MD [facility] [id number] 07/23/20 14 07/23/2014 Dale Tracey MD [facility] [id number] 07/23/20 14 07/23/2014 Dale Tracey MD [facility] [id number] 07/23/20 14 07/23/2014 Dale Tracey MD [facility] [id number] 07/23/20 14 07/23/2014 Dale Tracey MD [facility] [id number] 07/29/20 14 07/29/2014 Dale Tracey MD [facility] [id number] 07/29/20 14 07/29/2014 Dale Tracey MD [facility] [id number] 07/29/20 14 07/29/2014 Dale Tracey MD [facility] [id number]-[id number] 07/29/20 14 07/29/2014 Dale Tracey MD [facility] [id number] 07/29/20 14 07/29/2014 Dale Tracey MD [facility] [id number] 07/29/20 14 07/29/2014 Dale Tracey MD [facility] [id number] 07/29/20 14 07/29/2014 Dale Tracey MD [facility] [id number] 07/29/20 14 07/29/2014 Dale Tracey MD [facility] [id number] 07/29/20 14 07/29/2014 Dale Tracey MD [facility] [id number] 07/29/20 14 07/29/2014 Dale Tracey MD [facility] [id number] 07/29/20 14 07/29/2014 Dale Tracey MD [facility] [id number] 07/29/20 14 07/29/2014 Dale Tracey MD [facility] [id number] 07/29/20 14 07/29/2014 Dale Tracey MD [facility] [id number] 07/29/20 14 07/29/2014 Dale Tracey MD [facility] [id number] 07/29/20 14 07/29/2014 Dale Tracey MD [facility] [id number] 07/29/20 14 07/29/2014 Dale Tracey MD [facility] [id number] 07/29/20 14 07/29/2014 Dale Tracey MD [facility] [id number] 07/29/20 14 07/29/2014 Dale Tracey MD [facility] [id number] 07/29/20 14 07/29/2014 Dale Tracey MD [facility] [id number] 07/29/20 14 07/29/2014 Dale Tracey MD [facility] [id number] 07/29/20 14 07/29/2014 Dale Tracey MD [facility] [id number] 07/29/20 14 07/29/2014 Dale Tracey MD [facility] [id number] 07/29/20 14 07/29/2014 Dale Tracey MD [facility] [id number] 07/29/20 14 07/29/2014 Dale Tracey MD [facility] [id number] 07/29/20 14 07/29/2014 Dale Tracey MD [facility] [id number] 07/29/20 14 07/29/2014 Dale Tracey MD [facility] [id number] 07/29/20 14 07/29/2014 Dale Tracey MD [facility] [id number] 07/29/20 14 07/29/2014 Dale Tracey MD [facility] [id number] 07/29/20 14 07/29/2014 Dale Tracey MD [facility] [id number] 07/29/20 14 07/29/2014 Dale Tracey MD [facility] [id number] 07/29/20 14 07/29/2014 Dale Tracey MD [facility] [id number] 07/29/20 14 07/29/2014 Dale Tracey MD [facility] [id number] 07/29/20 14 07/29/2014 Dale Tracey MD [facility] [id number] 07/29/20 14 07/29/2014 Dale Tracey MD [facility] [id number] 07/29/20 14 07/29/2014 Dale Tracey MD [facility] [id number] 07/29/20 14 07/29/2014 Dale Tracey MD [facility]-- Hydrocodone [id number] 08/10/2014 08/10/2014 Dale Tracey MD [facility]-- Hydrocodone [id number] 08/10/2014 08/10/2014 Dale Tracey MD [facility]-- Hydrocodone [id number] 08/10/2014 08/10/2014 Dale Tracey MD [facility]-- Hydrocodone [id number] 08/10/2014 08/10/2014 Dale Tracey MD [facility]-- Hydrocodone [id number] 08/10/2014 08/10/2014 Dale Tracey MD [facility]-- Hydrocodone [id number] 08/10/2014 08/10/2014 Dale Tracey MD [facility]-- Hydrocodone [id number] 08/10/2014 08/10/2014 Dale Tracey MD [facility]-- Hydrocodone [id number] 08/10/2014 08/10/2014 Dale Tracey MD [facility]-- Hydrocodone [id number] 08/10/2014 08/10/2014 Dale Tracey MD [facility]-- Hydrocodone [id number] 08/10/2014 08/10/2014 Dale Tracey MD [facility]-- Hydrocodone [id number] 08/10/2014 08/10/2014 Dale Tracey MD [facility]-- Hydrocodone [id number] 08/10/2014 08/10/2014 Dale Tracey MD [facility]-- Hydrocodone [id number] 08/10/2014 08/10/2014 Dale Tracey MD [facility]-- Hydrocodone [id number] 08/10/2014 08/10/2014 Dale Tracey MD [facility]-- Hydrocodone [id number] 08/10/2014 08/10/2014 Dale Tracey MD [facility]-- Hydrocodone [id number] 08/10/2014 08/10/2014 Dale Tracey MD [facility]-- Hydrocodone [id number] 08/10/2014 08/10/2014 Dale Tracey MD [facility]-- Hydrocodone [id number] 08/10/2014 08/10/2014 Dale Tracey MD [facility]-- Hydrocodone [id number] 08/10/2014 08/10/2014 Dale Tracey MD [facility]-- Hydrocodone [id number] 08/10/2014 08/10/2014 Dale Tracey MD [facility]-- Hydrocodone [id number]-[id number] 08/10/2014 08/10/2014 Dale Tracey MD [facility]-- Hydrocodone [id number]-[id number]-[id number] 08/10/2014 08/10/2014 Dale Tracey MD [facility]-- Hydrocodone 96ljk2yr-671m-513u-c772-l2bx94l2x580 08/10/2014 08/10/2014 Dale Tracey MD [facility]-- Hydrocodone [id number] 08/10/2014 08/10/2014 Dale Traecy MD [facility]-- Hydrocodone [id number] 08/10/2014 08/10/2014 Dale Tracey MD [facility]-- Hydrocodone [id number] 08/10/2014 08/10/2014 Dale Tracey MD [facility]-- Hydrocodone [id number] 08/10/2014 08/10/2014 Dale Tracey MD [facility]-- Hydrocodone [id number] 08/10/2014 08/10/2014 Dale Tracey MD [facility]-- Hydrocodone [id number] 08/10/2014 08/10/2014 Dale Tracey MD [facility]-- Hydrocodone [id number]-[id number] 08/10/2014 08/10/2014 Dale Tracey MD [facility]-- Hydrocodone [id number] 08/10/2014 08/10/2014 Dale Tracey MD [facility]-- Hydrocodone [id number] 08/10/2014 08/10/2014 Dale Tracey MD [facility]-- Hydrocodone [id number]-[id number] 08/10/2014 08/10/2014 Dale Tracey MD [facility]-- Hydrocodone [id number]-l185-p6en96d8o8qg 08/10/2014 08/10/2014 Dale Tracey MD [facility]-- Hydrocodone [id number] 08/10/2014 08/10/2014 Dale Tracey MD [facility]-- Hydrocodone [id number] 08/10/2014 08/10/2014 Dale Tracey MD [facility] [id number] 08/23/20 14 08/23/2014 Dale Tracey MD [facility] [id number] 08/23/20 14 08/23/2014 Dale Tracey MD [facility] [id number] 08/23/20 14 08/23/2014 Dale Tracey MD [facility] [id number] 08/23/20 14 08/23/2014 Dale Tracey MD [facility] [id number] 08/23/20 14 08/23/2014 Dale Tracey MD [facility] [id number] 08/23/20 14 08/23/2014 Dale Tracey MD [facility] [id number] 08/23/20 14 08/23/2014 Dale Tracey MD [facility] [id number] 08/23/20 14 08/23/2014 Dale Tracey MD [facility] [id number] 08/23/20 14 08/23/2014 Dale Tracey MD [facility] [id number] 08/23/20 14 08/23/2014 Dale Tracey MD [facility] [id number] 08/23/20 14 08/23/2014 Dale Tracey MD [facility] [id number] 08/23/20 14 08/23/2014 Dale Tracey MD [facility] [id number] 08/23/20 14 08/23/2014 Dale Tracey MD [facility] [id number] 08/23/20 14 08/23/2014 Dale Tracey MD [facility] [id number] 08/23/20 14 08/23/2014 Dale Tracey MD [facility] [id number] 08/23/20 14 08/23/2014 Dale Tracey MD [facility] [id number] 08/23/20 14 08/23/2014 Dale Tracey MD [facility] [id number] 08/23/20 14 08/23/2014 Dale Tracey MD [facility] [id number] 08/23/20 14 08/23/2014 Dale Tracey MD [facility] [id number] 08/23/20 14 08/23/2014 Dale Tracey MD [facility] [id number] 08/23/20 14 08/23/2014 Dale Tracey MD [facility] [id number] 08/23/20 14 08/23/2014 Dale Tracey MD [facility] [id number] 08/23/20 14 08/23/2014 Dale Tracey MD [facility] [id number] 08/23/20 14 08/23/2014 Dale Tracey MD [facility] [id number] 08/23/20 14 08/23/2014 Dale Tracey MD [facility] [id number] 08/23/20 14 08/23/2014 Dale Tracey MD [facility] [id number] 08/23/20 14 08/23/2014 Dale Tracey MD [facility] [id number] 08/23/20 14 08/23/2014 Dale Tracey MD [facility] [id number] 08/23/20 14 08/23/2014 Dale Tracey MD [facility] [id number] 08/23/20 14 08/23/2014 Dale Tracey MD [facility] [id number] 08/23/20 14 08/23/2014 Dale Tracey MD [facility] [id number] 08/23/20 14 08/23/2014 Dale Tracey MD F/U [id number] 10/06/20 14 10/06/2014 Dale Tracey MD F/U [id number] 10/06/20 14 10/06/2014 Dale Tracey MD F/U [id number] 10/06/20 14 10/06/2014 Dale Tracey MD F/U [id number] 10/06/20 14 10/06/2014 Dale Tracey MD F/U [id number] 10/06/20 14 10/06/2014 Dale Tracey MD F/U [id number] 10/06/20 14 10/06/2014 Dale Tracey MD F/U [id number] 10/06/20 14 10/06/2014 Dale Tracey MD F/U [id number] 10/06/20 14 10/06/2014 Dale Tracey MD F/U [id number] 10/06/20 14 10/06/2014 Dale Tracey MD F/U [id number] 10/06/20 14 10/06/2014 Dale Tracey MD F/U [id number] 10/06/20 14 10/06/2014 Dale Tracey MD F/U [id number] 10/06/20 14 10/06/2014 Dale Tracey MD F/U [id number] 10/06/20 14 10/06/2014 Dale Tracey MD F/U [id number] 10/06/20 14 10/06/2014 Dale Tracey MD F/U [id number] 10/06/20 14 10/06/2014 Dale Tracey MD F/U [id number] 10/06/20 14 10/06/2014 Dale Tracey MD F/U [id number] 10/06/20 14 10/06/2014 Dale Tracey MD F/U [id number] 10/06/20 14 10/06/2014 Dale Tracey MD F/U [id number] 10/06/20 14 10/06/2014 Dale Tracey MD F/U [id number] 10/06/20 14 10/06/2014 Dale Tracey MD F/U [id number] 10/06/20 14 10/06/2014 Dale Tracey MD F/U [id number] 10/06/20 14 10/06/2014 Dale Tracey MD F/U [id number] 10/06/20 14 10/06/2014 Dale Tracey MD F/U [id number] 10/06/20 14 10/06/2014 Dale Tracey MD F/U [id number] 10/06/20 14 10/06/2014 Dale Tracey MD [facility]/U [id number] 10/06/20 14 10/06/2014 Dale Tracey MD F/U [id number] 10/06/20 14 10/06/2014 Dale Tracey MD F/U [id number] 10/06/20 14 10/06/2014 Dale Tracey MD F/U [id number] 10/06/20 14 10/06/2014 Dale Tracey MD F/U [id number] 10/06/20 14 10/06/2014 Dale Tracey MD ref req [facility] [id number] 10/14/20 14 10/14/2014 Dale Tracey MD ref req [facility] [id number] 10/14/20 14 10/14/2014 Dale Tracey [facility] [id number] 10/14/20 14 10/14/2014 Dale Tracey MD ref req [facility] [id number] 10/14/20 14 10/14/2014 Dale Tracey MD ref req [facility] [id number] 10/14/20 14 10/14/2014 Dale Tracey MD ref req [facility] [id number] 10/14/20 14 10/14/2014 Dale Tracey MD ref req [facility] [id number] 10/14/20 14 10/14/2014 Dale Tracey MD ref req [facility] [id number] 10/14/20 14 10/14/2014 Dale Tracey MD ref req [facility] [id number] 10/14/20 14 10/14/2014 Dale Tracey MD ref req [facility] [id number] 10/14/20 14 10/14/2014 Dale Tracey MD ref req [facility] [id number] 10/14/20 14 10/14/2014 Dale Tracey MD ref req [facility] [id number] 10/14/20 14 10/14/2014 Dale Tracey MD ref req [facility] [id number] 10/14/20 14 10/14/2014 Dale Tracey MD ref req [facility] [id number] 10/14/20 14 10/14/2014 Dale Tracey MD ref req [facility] [id number] 10/14/20 14 10/14/2014 Dale Tracey MD ref req [facility] [id number] 10/14/20 14 10/14/2014 Dale Tracey MD ref req [facility] [id number] 10/14/20 14 10/14/2014 Dale Tracey MD ref req [facility] [id number] 10/14/20 14 10/14/2014 Dale Tracey MD ref req [facility] [id number] 10/14/20 14 10/14/2014 Dale Tracey MD ref req [facility] [id number] 10/14/20 14 10/14/2014 Dale Tracey MD ref req [facility] [id number] 10/14/20 14 10/14/2014 Dale Tracey MD ref req [facility] [id number] 10/14/20 14 10/14/2014 Dale Tracey MD ref req [facility] [id number] 10/14/20 14 10/14/2014 Dale Tracey MD ref req [facility] [id number] 10/14/20 14 10/14/2014 Dale Tracey MD ref req [facility] [id number] 10/14/20 14 10/14/2014 Dale Tracey MD ref req [facility] [id number] 10/14/20 14 10/14/2014 Dale Tracey MD ref req [facility] [id number] 10/14/20 14 10/14/2014 Dale Tracey MD ref req [facility] [id number] 10/14/20 14 10/14/2014 Dale Tracey MD ref req [facility] [id number] 10/14/20 14 10/14/2014 Dale Tracey MD ref req [facility] [id number] 10/14/20 14 10/14/2014 Dale Tracey MD ref req [facility] [id number] 10/14/20 14 10/14/2014 Dale Tracey MD [facility] F/U [id number] 10/26/20 14 10/26/2014 Dale Tracey MD [facility] F/U [id number] 10/26/20 14 10/26/2014 Dale Tracey MD [facility] F/U [id number] 10/26/20 14 10/26/2014 Dale Tracey MD [facility] F/U [id number] 10/26/20 14 10/26/2014 Dale Tracey MD [facility] F/U [id number] 10/26/20 14 10/26/2014 Dale Tracey MD [facility] F/U [id number] 10/26/20 14 10/26/2014 Dale Tracey MD [facility] F/U [id number] 10/26/20 14 10/26/2014 Dale Tracey MD [facility] F/U [id number] 10/26/20 14 10/26/2014 Dale Tracey MD [facility] F/U [id number] 10/26/20 14 10/26/2014 Dale Tracey MD [facility] F/U [id number] 10/26/20 14 10/26/2014 Dale Tracey MD [facility] F/U [id number] 10/26/20 14 10/26/2014 Dale Tracey MD [facility] F/U [id number] 10/26/20 14 10/26/2014 Dale Tracey MD [facility] F/U [id number] 10/26/20 14 10/26/2014 Dale Tracey MD [facility] F/U [id number] 10/26/20 14 10/26/2014 Dale Tracey MD [facility] F/U [id number] 10/26/20 14 10/26/2014 Dale Tracey MD [facility] F/U [id number] 10/26/20 14 10/26/2014 Dale Tracey MD [facility] F/U [id number] 10/26/20 14 10/26/2014 Dale Tracey MD [facility] F/U [id number] 10/26/20 14 10/26/2014 Dale Tracey MD [facility] F/U [id number] 10/26/20 14 10/26/2014 Dale Tracey MD [facility] F/U [id number] 10/26/20 14 10/26/2014 Dale Tracey MD [facility] F/U [id number] 10/26/20 14 10/26/2014 Dale Tracey MD [facility] F/U [id number] 10/26/20 14 10/26/2014 Dale Tracey MD [facility] F/U [id number] 10/26/20 14 10/26/2014 Dale Tracey MD [facility] F/U [id number] 10/26/20 14 10/26/2014 Dale Tracey MD [facility] F/U [id number] 10/26/20 14 10/26/2014 Dale Tracey MD [facility] F/U [id number] 10/26/20 14 10/26/2014 Dale Tracey MD [facility] F/U [id number] 10/26/20 14 10/26/2014 Dale Tracey MD [facility] F/U [id number] 10/26/20 14 10/26/2014 Dale Tracey MD [facility] F/U [id number] 10/26/20 14 10/26/2014 Dale Tracey MD [facility] F/U [id number] 10/26/20 14 10/26/2014 Dale Tracey MD F/U [id number] 01/19/20 15 01/18/2015 Dale Tracey MD F/U [id number] 01/19/20 15 01/18/2015 Dale Tracey MD [facility]/U [id number] 01/19/20 15 01/18/2015 Dale Tracey MD F/U [id number] 01/19/20 15 01/18/2015 Dale Tracey MD F/U [id number] 01/19/20 15 01/18/2015 Dale Tracey MD F/U [id number] 01/19/20 15 01/18/2015 Dale Tracey MD F/U [id number] 01/19/20 15 01/18/2015 Dale Tracey MD [facility]/U [id number] 01/19/20 15 01/18/2015 Dale Tracey MD F/U [id number] 01/19/20 15 01/18/2015 Dale Tracey MD F/U [id number] 01/19/20 15 01/18/2015 Dale Tracey MD F/U [id number] 01/19/20 15 01/18/2015 Dale Tracey MD F/U [id number] 01/19/20 15 01/18/2015 Dale Tracey MD F/U [id number] 01/19/20 15 01/18/2015 Dale Tracey MD F/U [id number] 01/19/20 15 01/18/2015 Dale Tracey MD F/U [id number] 01/19/20 15 01/18/2015 Dale Tracey MD F/U [id number] 01/19/20 15 01/18/2015 Dale Tracey MD F/U [id number] 01/19/20 15 01/18/2015 Dale Tracey MD F/U [id number] 01/19/20 15 01/18/2015 Dale Tracey MD F/U [id number] 01/19/20 15 01/18/2015 Dale Tracey MD F/U [id number] 01/19/20 15 01/18/2015 Dale Tracey MD F/U [id number] 01/19/20 15 01/18/2015 Dale Tracey MD F/U [id number] 01/19/20 15 01/18/2015 Dale Tracey MD F/U [id number] 01/19/20 15 01/18/2015 Dale Tracey MD F/U [id number] 01/19/20 15 01/18/2015 Dale Tracey MD F/U [id number] 01/19/20 15 01/18/2015 Dale Tracey MD F/U [id number] 01/19/20 15 01/18/2015 Dale Tracey MD F/U [id number] 01/19/20 15 01/18/2015 Dale Tracey MD F/U [id number] 01/19/20 15 01/18/2015 Dale Tracey MD F/U [id number] 01/19/20 15 01/18/2015 Dale Tracey MD F/U [id number] 01/19/20 15 01/18/2015 Dale Tracey MD RX Coverage Issue [id number] 02/02/2015 02/02/2015 Dale Tracey MD RX Coverage Issue [id number] 02/02/2015 02/02/2015 Dale Tracey MD RX Coverage Issue [id number] 02/02/2015 02/02/2015 Dale Tracey MD RX Coverage Issue [id number] 02/02/2015 02/02/2015 Dale Tracey MD RX Coverage Issue [id number] 02/02/2015 02/02/2015 Dale Tracey MD RX Coverage Issue [id number] 02/02/2015 02/02/2015 Dale Tracey MD RX Coverage Issue [id number] 02/02/2015 02/02/2015 Dale Tracey MD RX Coverage Issue [id number] 02/02/2015 02/02/2015 Dale Tracey MD RX Coverage Issue [id number] 02/02/2015 02/02/2015 Dale Tracey MD RX Coverage Issue [id number] 02/02/2015 02/02/2015 Dale Tracey MD RX Coverage Issue [id number] 02/02/2015 02/02/2015 Dale Tracey MD RX Coverage Issue [id number] 02/02/2015 02/02/2015 Dale Tracey MD RX Coverage Issue [id number] 02/02/2015 02/02/2015 Dale Tracey MD RX Coverage Issue [id number] 02/02/2015 02/02/2015 Dale Tracey MD RX Coverage Issue [id number] 02/02/2015 02/02/2015 Dale Tracey MD RX Coverage Issue [id number] 02/02/2015 02/02/2015 Dale Tracey MD RX Coverage Issue [id number] 02/02/2015 02/02/2015 Dale Tracey MD RX Coverage Issue [id number] 02/02/2015 02/02/2015 Dale Tracey MD RX Coverage Issue [id number] 02/02/2015 02/02/2015 Dale Tracey MD RX Coverage Issue [id number] 02/02/2015 02/02/2015 Dale Tracey MD RX Coverage Issue [id number] 02/02/2015 02/02/2015 Dale Tracey MD RX Coverage Issue [id number] 02/02/2015 02/02/2015 Dale Tracey MD RX Coverage Issue [id number] 02/02/2015 02/02/2015 Dale Tracey MD RX Coverage Issue [id number] 02/02/2015 02/02/2015 Dale Tracey MD RX Coverage Issue [id number] 02/02/2015 02/02/2015 Dale Tracey MD RX Coverage Issue [id number] 02/02/2015 02/02/2015 Dale Tracey MD RX Coverage Issue [id number] 02/02/2015 02/02/2015 Dale Tracey MD RX Coverage Issue [id number] 02/02/2015 02/02/2015 Dale Tracey MD RX Coverage Issue [id number] 02/02/2015 02/02/2015 Dale Tracey MD RX Coverage Issue [id number] 02/02/2015 02/02/2015 Dale Tracey MD Refill- [facility] [id number] 02/08/20 15 02/07/2015 Dale Tracey MD Refill- [facility] [id number] 02/08/20 15 02/07/2015 Dale Tracey MD Refill- [facility] [id number] 02/08/20 15 02/07/2015 Dale Tracey MD Refill- [facility] [id number] 02/08/20 15 02/07/2015 Dale Tracey MD Refill- [facility] [id number] 02/08/20 15 02/07/2015 Dale Tracey MD Refill- [facility] [id number] 02/08/20 15 02/07/2015 Dale Tracey MD Refill- [facility] [id number] 02/08/20 15 02/07/2015 Dale Tracey MD Refill- [facility] [id number] 02/08/20 15 02/07/2015 Dale Tracey MD Refill- [facility] [id number] 02/08/20 15 02/07/2015 Dale Tracey MD Refill- [facility] [id number] 02/08/20 15 02/07/2015 Dale Tracey MD Refill- [facility] [id number] 02/08/20 15 02/07/2015 Dale Tracey MD Refill- [facility] [id number] 02/08/20 15 02/07/2015 Dale Tracey MD Refill- [facility] [id number] 02/08/20 15 02/07/2015 Dale Tracey MD Refill- [facility] [id number] 02/08/20 15 02/07/2015 Dale Tracey MD Refill- [facility] [id number] 02/08/20 15 02/07/2015 Dale Tracey MD Refill- [facility] [id number] 02/08/20 15 02/07/2015 Dale Tracey MD Refill- [facility] [id number] 02/08/20 15 02/07/2015 Dale Tracey MD Refill- [facility] [id number] 02/08/20 15 02/07/2015 Dale Tracey MD Refill- [facility] [id number] 02/08/20 15 02/07/2015 Dale Tracey MD Refill- [facility] [id number] 02/08/20 15 02/07/2015 Dale Tracey MD Refill- [facility] [id number] 02/08/20 15 02/07/2015 Dale Tracey MD Refill- [facility] [id number] 02/08/20 15 02/07/2015 Dale Tracey MD Refill- [facility] [id number] 02/08/20 15 02/07/2015 Dale Tracey MD Refill- [facility] [id number] 02/08/20 15 02/07/2015 Dale Tracey MD Refill- [facility] [id number] 02/08/20 15 02/07/2015 Dale Tracey MD Refill- [facility] [id number] 02/08/20 15 02/07/2015 Dale Tracey MD Refill- [facility] [id number] 02/08/20 15 02/07/2015 Dale Tracey MD Refill- [facility] [id number] 02/08/20 15 02/07/2015 Dale Tracey MD Refill- [facility] [id number] 02/08/20 15 02/07/2015 Dale Tracey MD Refill- [facility] [id number] 02/08/20 15 02/07/2015 Dale Tracey MD [facility] [id number] 02/08/2015 02/08/2015 Dale Tracey MD [facility] [id number] 02/08/2015 02/08/2015 Dale Tracey MD [facility] [id number] 02/08/2015 02/08/2015 Dale Tracey MD [facility] [id number] 02/08/2015 02/08/2015 Dale Tracey MD [facility] [id number] 02/08/2015 02/08/2015 Dale Tracey MD [facility] [id number] 02/08/2015 02/08/2015 Dale Tracey MD [facility] [id number] 02/08/2015 02/08/2015 Dale Tracey MD [facility] [id number] 02/08/2015 02/08/2015 Dale Tracey MD [facility] [id number] 02/08/2015 02/08/2015 Dale Tracey MD [facility] [id number] 02/08/2015 02/08/2015 Dale Tracey MD [facility] [id number] 02/08/2015 02/08/2015 Dale Tracey MD [facility] [id number] 02/08/2015 02/08/2015 Dale Tracey MD [facility] [id number] 02/08/2015 02/08/2015 Dale Tracey MD [facility] [id number] 02/08/2015 02/08/2015 Dale Tracey MD [facility] [id number] 02/08/2015 02/08/2015 Dale Tracey MD [facility] [id number] 02/08/2015 02/08/2015 Dale Tracey MD [facility] [id number] 02/08/2015 02/08/2015 Dale Tracey MD [facility] [id number] 02/08/2015 02/08/2015 Dale Tracey MD [facility] [id number] 02/08/2015 02/08/2015 Dale Tracey MD [facility] [id number] 02/08/2015 02/08/2015 Dale Tracey MD [facility] [id number] 02/08/2015 02/08/2015 Dale Tracey MD [facility] [id number] 02/08/2015 02/08/2015 Dale Tracey MD [facility] [id number] 02/08/2015 02/08/2015 Dale Tracey MD [facility] [id number] 02/08/2015 02/08/2015 Dale Tracey MD [facility] [id number] 02/08/2015 02/08/2015 Dale Tracey MD [facility] [id number] 02/08/2015 02/08/2015 Dale Tracey MD [facility] [id number] 02/08/2015 02/08/2015 Dale Tracey MD [facility] [id number] 02/08/2015 02/08/2015 Dale Tracey MD [facility] [id number] 02/08/2015 02/08/2015 Dale Tracey MD [facility] [id number] 02/08/2015 02/08/2015 Dale Tracey MD RX SEND FAILURE [id number] 02/16/20 15 02/15/2015 Dale Tracey MD RX SEND FAILURE [id number] 02/16/20 15 02/15/2015 Dale Tracey MD RX SEND FAILURE [id number] 02/16/20 15 02/15/2015 Dale Tracey MD RX SEND FAILURE [id number] 02/16/20 15 02/15/2015 Dale Tracey MD RX SEND FAILURE [id number] 02/16/20 15 02/15/2015 Dale Tracey MD RX SEND FAILURE [id number] 02/16/20 15 02/15/2015 Dale Tracey MD RX SEND FAILURE [id number] 02/16/20 15 02/15/2015 Dale Tracey MD RX SEND FAILURE [id number] 02/16/20 15 02/15/2015 Dale Tracey MD RX SEND FAILURE [id number] 02/16/20 15 02/15/2015 Dale Tracey MD RX SEND FAILURE [id number] 02/16/20 15 02/15/2015 Dale Tracey MD RX SEND FAILURE [id number] 02/16/20 15 02/15/2015 Dale Tracey MD RX SEND FAILURE [id number] 02/16/20 15 02/15/2015 Dale Tracey MD RX SEND FAILURE [id number] 02/16/20 15 02/15/2015 Dale Tracey MD RX SEND FAILURE [id number] 02/16/20 15 02/15/2015 Dale Tracey MD RX SEND FAILURE [id number] 02/16/20 15 02/15/2015 Dale Tracey MD RX SEND FAILURE [id number] 02/16/20 15 02/15/2015 Dale Tracey MD RX SEND FAILURE [id number] 02/16/20 15 02/15/2015 Dale Tracey MD RX SEND FAILURE [id number] 02/16/20 15 02/15/2015 Dale Tracey MD RX SEND FAILURE [id number] 02/16/20 15 02/15/2015 Dale Tracey MD RX SEND FAILURE [id number] 02/16/20 15 02/15/2015 Dale Tracey MD RX SEND FAILURE [id number] 02/16/20 15 02/15/2015 Dale Tracey MD RX SEND FAILURE [id number] 02/16/20 15 02/15/2015 Dale Tracey MD RX SEND FAILURE [id number] 02/16/20 15 02/15/2015 Dale Tracey MD RX SEND FAILURE [id number] 02/16/20 15 02/15/2015 Dale Tracey MD RX SEND FAILURE [id number] 02/16/20 15 02/15/2015 Dale Tracey MD RX SEND FAILURE [id number] 02/16/20 15 02/15/2015 Dale Tracey MD RX SEND FAILURE [id number] 02/16/20 15 02/15/2015 Dale Tracey MD RX SEND FAILURE [id number] 02/16/20 15 02/15/2015 Dale Tracey MD RX SEND FAILURE [id number] 02/16/20 15 02/15/2015 Dale Tracey MD RX SEND FAILURE [id number] 02/16/20 15 02/15/2015 Dale Tracey MD [facility] RX FAILURE [id number] 02/18/20 15 02/17/2015 Dale Tracey MD [facility] RX FAILURE [id number] 02/18/20 15 02/17/2015 Dale Tracey MD [facility] RX FAILURE [id number] 02/18/20 15 02/17/2015 Dale Tracey MD [facility] RX FAILURE [id number] 02/18/20 15 02/17/2015 Dale Tracey MD [facility] RX FAILURE [id number] 02/18/20 15 02/17/2015 Dale Tracey MD [facility] RX FAILURE [id number] 02/18/20 15 02/17/2015 Dale Tracey MD [facility] RX FAILURE [id number] 02/18/20 15 02/17/2015 Dale Tracey MD [facility] RX FAILURE [id number] 02/18/20 15 02/17/2015 Dale Tracey MD [facility] RX FAILURE [id number] 02/18/20 15 02/17/2015 Dale Tracey MD [facility] RX FAILURE [id number] 02/18/20 15 02/17/2015 Dale Tracey MD [facility] RX FAILURE [id number] 02/18/20 15 02/17/2015 Dale Tracey MD [facility] RX FAILURE [id number] 02/18/20 15 02/17/2015 Dale Tracey MD [facility] RX FAILURE [id number] 02/18/20 15 02/17/2015 Dale Tracey MD [facility] RX FAILURE [id number] 02/18/20 15 02/17/2015 Dale Tracey MD [facility] RX FAILURE [id number] 02/18/20 15 02/17/2015 Dale Tracey MD [facility] RX FAILURE [id number] 02/18/20 15 02/17/2015 Dale Tracey MD [facility] RX FAILURE [id number] 02/18/20 15 02/17/2015 MD [facility] FAILURE [id number] 02/18/20 15 02/17/2015 Dale Tracey MD [facility] FAILURE [id number] 02/18/20 15 02/17/2015 Dale Tracey MD [facility]URE [id number] 02/18/20 15 02/17/2015 Dale Tracey MD [facility] FAILURE [id number] 02/18/20 15 02/17/2015 Dale Tracey MD [facility]URE [id number] 02/18/20 15 02/17/2015 Dale Tracey MD [facility] FAILURE [id number] 02/18/20 15 02/17/2015 Dale Tracey MD [facility] [id number] 02/18/20 15 02/17/2015 Dale Tracey MD [facility] FAILURE [id number] 02/18/20 15 02/17/2015 Dale Tracey MD [facility] FAILURE [id number] 02/18/20 15 02/17/2015 Dale Tracey MD [facility] FAILURE [id number] 02/18/20 15 02/17/2015 Dale Tracey MD [facility] FAILURE [id number] 02/18/20 15 02/17/2015 Dale Tracey MD [facility] RX FAILURE [id number] 02/18/20 15 02/17/2015 Dale Tracey MD [facility] RX FAILURE [id number] 02/18/20 15 02/17/2015 Dale Tracey MD F/U [id number] 02/19/20 15 02/18/2015 Dale Tracey MD F/U [id number] 02/19/20 15 02/18/2015 Dale Tracey MD F/U [id number] 02/19/20 15 02/18/2015 Dale Tracey MD F/U [id number] 02/19/20 15 02/18/2015 Dale Tracey MD F/U [id number] 02/19/20 15 02/18/2015 Dale Tracey MD F/U [id number] 02/19/20 15 02/18/2015 Dale Tracey MD F/U [id number] 02/19/20 15 02/18/2015 Dale Tracey MD F/U [id number] 02/19/20 15 02/18/2015 Dale Tracey MD F/U [id number] 02/19/20 15 02/18/2015 Dale Tracey MD F/U [id number] 02/19/20 15 02/18/2015 Dale Tracey MD F/U [id number] 02/19/20 15 02/18/2015 Dale Tracey MD [facility]/U [id number] 02/19/20 15 02/18/2015 Dale Tracey MD [facility]/U [id number] 02/19/20 15 02/18/2015 Dale Tracey MD [facility]/U [id number] 02/19/20 15 02/18/2015 Dale Tracey MD F/U [id number] 02/19/20 15 02/18/2015 Dale Tracey MD F/U [id number] 02/19/20 15 02/18/2015 Dale Tracey MD F/U [id number] 02/19/20 15 02/18/2015 Dale Tracey MD F/U [id number] 02/19/20 15 02/18/2015 Dale Tracey MD F/U [id number] 02/19/20 15 02/18/2015 Dale Tracey MD F/U [id number] 02/19/20 15 02/18/2015 Dale Tracey MD F/U [id number] 02/19/20 15 02/18/2015 Dale Tracey MD F/U [id number] 02/19/20 15 02/18/2015 Dale Tracey MD F/U [id number] 02/19/20 15 02/18/2015 Dale Tracey MD F/U [id number] 02/19/20 15 02/18/2015 Dale Tracey MD F/U [id number] 02/19/20 15 02/18/2015 Dale Tracey MD F/U [id number] 02/19/20 15 02/18/2015 Dale Tracey MD Chest XR [id number] 02/26/20 15 02/25/2015 Dale Tracey MD Chest XR [id number] 02/26/20 15 02/25/2015 Dale Tracey MD Chest XR [id number] 02/26/20 15 02/25/2015 Dale Tracey MD Chest XR [id number] 02/26/20 15 02/25/2015 Dale Tracey MD Chest XR [id number] 02/26/20 15 02/25/2015 Dale Tracey MD Chest XR [id number] 02/26/20 15 02/25/2015 Dale Tracey MD Chest XR [id number] 02/26/20 15 02/25/2015 Dale Tracey MD Chest XR [id number] 02/26/20 15 02/25/2015 Dale Tracey MD Chest XR [id number] 02/26/20 15 02/25/2015 Dale Tracey MD Chest XR [id number] 02/26/20 15 02/25/2015 Dale Tracey MD Chest XR [id number] 02/26/20 15 02/25/2015 Dale Tracey MD Chest XR [id number] 02/26/20 15 02/25/2015 Dale Tracey MD Chest XR [id number] 02/26/20 15 02/25/2015 Dale Tracey MD Chest XR [id number] 02/26/20 15 02/25/2015 Dale Tracey MD Chest XR [id number] 02/26/20 15 02/25/2015 Dale Tracey MD Chest XR [id number] 02/26/20 15 02/25/2015 Dale Tracey MD Chest XR [id number] 02/26/20 15 02/25/2015 Dale Tracey MD Chest XR [id number] 02/26/20 15 02/25/2015 Dale Tracey MD Chest XR [id number] 02/26/20 15 02/25/2015 Dale Tracey MD Chest XR [id number] 02/26/20 15 02/25/2015 Dale Tracey MD Chest XR [id number] 02/26/20 15 02/25/2015 Dale Tracey MD Chest XR [id number] 02/26/20 15 02/25/2015 Dale Tracey MD Chest XR [id number] 02/26/20 15 02/25/2015 Dale Tracey MD Chest XR [id number] 02/26/20 15 02/25/2015 Dale Tracey MD Chest XR [id number] 02/26/20 15 02/25/2015 Dale Tracey MD Chest XR [id number] 02/26/20 15 02/25/2015 Dale Tracey MD Chest XR [id number] 02/26/20 15 02/25/2015 Dale Tracey MD Chest XR [id number] 02/26/20 15 02/25/2015 Dale Tracey MD Chest XR [id number] 02/26/20 15 02/25/2015 Dale Tracey MD Chest XR [id number] 02/26/20 15 02/25/2015 Dale Tracey [facility] [place] [facility] [id number] Ricky Tracey 02/25/2015 02/26/2015 [facility] Garcia Tracey MD Unknown [id number] 05/26/20 15 05/26/2015 Dale Tracey MD Unknown [id number] 05/26/20 15 05/26/2015 Dale Tracey MD Unknown [id number] 05/26/20 15 05/26/2015 Dale Tracye MD Unknown [id number] 05/26/20 15 05/26/2015 Dale Tracey MD Unknown [id number] 05/26/20 15 05/26/2015 Dale Tracey MD Unknown [id number] 05/26/20 15 05/26/2015 Dale Tracey MD Unknown [id number] 05/26/20 15 05/26/2015 Dale Tracey MD Unknown [id number] 05/26/20 15 05/26/2015 Dale Tracey MD Unknown [id number] 05/26/20 15 05/26/2015 Dale Tracey MD Unknown [id number] 05/26/20 15 05/26/2015 Dale Tracey MD Unknown [id number] 05/26/20 15 05/26/2015 Dale Tracey MD Unknown [id number] 05/26/20 15 05/26/2015 Dale Tracey MD Unknown [id number] 05/26/20 15 05/26/2015 Dale Tracey MD Unknown [id number] 05/26/20 15 05/26/2015 Dale Tracey MD Unknown [id number] 05/26/20 15 05/26/2015 Dale Tracey MD Unknown [id number] 05/26/20 15 05/26/2015 Dale Tracey MD Unknown [id number] 05/26/20 15 05/26/2015 Dale Tracey MD RX request-- [facility] [id number] 05/26/2015 05/26/2015 Dale Tracey MD RX request-- [facility] [id number] 05/26/2015 05/26/2015 Dale Tracey MD RX request-- humira [id number] 05/26/2015 05/26/2015 Dale Tracey MD RX request-- humira [id number] 05/26/2015 05/26/2015 Dale Tracey MD RX request-- humira [id number] 05/26/2015 05/26/2015 Dale Tracey MD RX request-- humira [id number] 05/26/2015 05/26/2015 Dale Tracey MD RX request-- humira [id number] 05/26/2015 05/26/2015 Dale Tracey MD RX request-- humira [id number] 05/26/2015 05/26/2015 Dale Tracey MD RX request-- humira [id number] 05/26/2015 05/26/2015 Dale Tracey MD RX request-- humira [id number] 05/26/2015 05/26/2015 Dale Tracey MD RX request-- humira [id number] 05/26/2015 05/26/2015 Dale Tracey MD RX request-- humira [id number] 05/26/2015 05/26/2015 Dale Tracey MD RX request-- humira [id number] 05/26/2015 05/26/2015 Dale Tracey MD RX request-- humira [id number] 05/26/2015 05/26/2015 Dale Tracey MD RX request-- humira [id number] 05/26/2015 05/26/2015 Dale Tracey MD RX request-- humira [id number] 05/26/2015 05/26/2015 Dale Tracey MD RX request-- humira [id number] 05/26/2015 05/26/2015 Dale Tracey MD RX request-- humira [id number] 05/26/2015 05/26/2015 Dale Tracey MD RX request-- humira [id number] 05/26/2015 05/26/2015 Dale Tracey MD RX request-- humira [id number] 05/26/2015 05/26/2015 Dale Tracey MD Unknown [id number] 05/26/20 15 05/26/2015 Dale Tracey MD Unknown [id number] 05/26/20 15 05/26/2015 Dale Tracey MD Unknown [id number] 05/26/20 15 05/26/2015 Dale Tracey MD Unknown [id number] 05/26/20 15 05/26/2015 Dale Tracey MD Unknown [id number] 05/26/20 15 05/26/2015 Dale Tracey MD Unknown [id number] 05/26/20 15 05/26/2015 Dale Tracey MD Unknown [id number] 05/26/20 15 05/26/2015 Dale Tracey MD Unknown [id number] 05/26/20 15 05/26/2015 Dale Traecy MD Unknown [id number] 05/26/20 15 05/26/2015 Dale Tracey MD Unknown [id number] 05/26/20 15 05/26/2015 Dale Tracey MD RX request-- humira [id number] 05/26/2015 05/26/2015 Dale Tracey MD RX request-- humira [id number] 05/26/2015 05/26/2015 Dale Tracey MD RX request-- humira [id number] 05/26/2015 05/26/2015 Dale Tracey MD RX request-- humira [id number] 05/26/2015 05/26/2015 Dale Tracey MD RX request-- humira [id number] 05/26/2015 05/26/2015 Dale Tracey MD RX request-- humira [id number] 05/26/2015 05/26/2015 Dale Tracey MD RX request-- humira [id number] 05/26/2015 05/26/2015 Dale Tracey MD RX request-- humira [id number] 05/26/2015 05/26/2015 Dale Tracey MD RX request-- humira [id number] 05/26/2015 05/26/2015 Dale Tracey MD RX request-- humira [id number] 05/26/2015 05/26/2015 Dale Tracey MD RX Request-- [place] [id number] 05/27/20 15 05/27/2015 Dale Tracey MD RX Request-- [place] [id number] 05/27/20 15 05/27/2015 Dale Tracey MD RX Request-- [place] [id number] 05/27/20 15 05/27/2015 Dale Tracey MD RX Request-- [place] [id number] 05/27/20 15 05/27/2015 Dale Tracey MD RX Request-- [place] [id number] 05/27/20 15 05/27/2015 Dale Tracey MD RX Request-- [place] [id number] 05/27/20 15 05/27/2015 Dale Tracey MD RX Request-- [place] [id number] 05/27/20 15 05/27/2015 Dale Tracey MD RX Request-- [place] [id number] 05/27/20 15 05/27/2015 Dale Tracey MD RX Request-- [place] [id number] 05/27/20 15 05/27/2015 Dale Tracey MD RX Request-- [place] [id number] 05/27/20 15 05/27/2015 Dale Tracey MD RX Request-- [place] [id number] 05/27/20 15 05/27/2015 Dale Tracey MD RX Request-- [place] [id number] 05/27/20 15 05/27/2015 Dale Tracey MD RX Request-- [place] [id number] 05/27/20 15 05/27/2015 Dale Tracey MD RX Request-- [place] [id number] 05/27/20 15 05/27/2015 Dale Tracey MD RX Request-- [place] [id number] 05/27/20 15 05/27/2015 Dale Tracey MD RX Request-- [place] [id number] 05/27/20 15 05/27/2015 Dale Tracey MD RX Request-- [place] [id number] 05/27/20 15 05/27/2015 Dale Tracey MD RX Request-- [place] [id number] 05/27/20 15 05/27/2015 Dale Tracey MD RX Request-- [place] [id number] 05/27/20 15 05/27/2015 Dale Tracey MD RX Request-- [place] [id number] 05/27/20 15 05/27/2015 Dale Tracey MD RX Request-- [place] [id number] 05/27/20 15 05/27/2015 Dale Tracey MD RX Request-- [place] [id number] 05/27/20 15 05/27/2015 Dale Tracey MD RX Request-- [place] [id number] 05/27/20 15 05/27/2015 Dale Tracey MD RX Request-- [place] [id number] 05/27/20 15 05/27/2015 Dale Tracey MD RX Request-- [place] [id number] 05/27/20 15 05/27/2015 Dale Tracey MD RX Request-- [place] [id number] 05/27/20 15 05/27/2015 Dale Tracey MD RX Request-- [place] [id number] 05/27/20 15 05/27/2015 Dale Tracey MD RX Request-- [place] [id number] 05/27/20 15 05/27/2015 Dale Tracey MD RX Request-- [place] [id number] 05/27/20 15 05/27/2015 Dale Tracey MD RX Request-- [place] [id number] 05/27/20 15 05/27/2015 Dale Tracey MD [facility] fax [id number] 05/27/20 15 05/27/2015 Dale Tracey MD [facility] fax [id number] 05/27/20 15 05/27/2015 Dale Tracey MD [facility] fax [id number] 05/27/20 15 05/27/2015 Dale Tracey MD [facility] fax [id number] 05/27/20 15 05/27/2015 Dale Tracey MD [facility] fax [id number] 05/27/20 15 05/27/2015 Dale Tracey MD [facility] fax [id number] 05/27/20 15 05/27/2015 Dale Tracey MD [facility] fax [id number] 05/27/20 15 05/27/2015 Dale Tracey MD [facility] fax [id number] 05/27/20 15 05/27/2015 Dale Tracey MD [facility] fax [id number] 05/27/20 15 05/27/2015 Dale Tracey MD [facility] fax [id number] 05/27/20 15 05/27/2015 [facility] [id number] 05/27/20 15 05/27/2015 Dale Tr[facility] [id number] 05/27/20 15 05/27/2015 Dale Tracey MD [facility] fax [id number] 05/27/20 15 05/27/2015 Dale Tracey [facility] [id number] 05/27/20 15 05/27/2015 Dale Tracey MD [facility] fax [id number] 05/27/20 15 05/27/2015 Dale Tracey MD [facility] fax [id number] 05/27/20 15 05/27/2015 MD [facility] fax [id number] 05/27/20 15 05/27/2015 MD z[facility] fax [id number] 05/27/20 15 05/27/2015 Dale Tracey MD [facility] fax [id number] 05/27/20 15 05/27/2015 Dale Tracey MD [facility] fax [id number] 05/27/20 15 05/27/2015 Dale Tracey MD [facility] fax [id number] 05/27/20 15 05/27/2015 Dale Tracey MD [facility] fax [id number] 05/27/20 15 05/27/2015 Dale Tracey MD [facility] fax [id number] 05/27/20 15 05/27/2015 Dale Tracey MD [facility] fax [id number] 05/27/20 15 05/27/2015 Dale Tracey MD [facility] fax [id number] 05/27/20 15 05/27/2015 Dale Tracey MD [facility] fax [id number] 05/27/20 15 05/27/2015 Dale Tracey MD [facility] fax [id number] 05/27/20 15 05/27/2015 Dale Tracey MD [facility] fax [id number] 05/27/20 15 05/27/2015 Dale Tracey MD [facility] fax [id number] 05/27/20 15 05/27/2015 MD zeferino Cedeno fax [id number] 05/27/20 15 05/27/2015 Dale Tracey MD [facility] [id number] 06/23/2015 06/23/2015 Dale Tracey MD MRI [id number] 06/23/2015 06/23/2015 Dale Tracey MD [facility] [id number] 06/23/2015 06/23/2015 Dale Tracey MD MRI [id number] 06/23/2015 06/23/2015 Dale Tracey MD MRI [id number] 06/23/2015 06/23/2015 Dale Tracey MD MRI [id number] 06/23/2015 06/23/2015 Dale Tracey MD MRI [id number] 06/23/2015 06/23/2015 Dale Tracey MD MRI [id number] 06/23/2015 06/23/2015 Dale Tracey MD MRI [id number] 06/23/2015 06/23/2015 Dale Tracey MD MRI [id number] 06/23/2015 06/23/2015 Dale Tracey MD MRI [id number] 06/23/2015 06/23/2015 Dale Tracey MD MRI [id number] 06/23/2015 06/23/2015 Dale Tracey MD MRI [id number] 06/23/2015 06/23/2015 Dale Tracey MD MRI [id number] 06/23/2015 06/23/2015 Dale Tracey MD MRI [id number] 06/23/2015 06/23/2015 Dale Tracey MD MRI [id number] 06/23/2015 06/23/2015 Dale Tracey MD MRI [id number] 06/23/2015 06/23/2015 Dale Tracey MD MRI [id number] 06/23/2015 06/23/2015 Dale Tracey MD MRI [id number] 06/23/2015 06/23/2015 Dale Tracey MD MRI [id number] 06/23/2015 06/23/2015 Dale Tracey MD MRI [id number] 06/23/2015 06/23/2015 Dale Tracey MD MRI [id number] 06/23/2015 06/23/2015 Dale Tracey MD MRI [id number] 06/23/2015 06/23/2015 Dale Tracey MD MRI [id number] 06/23/2015 06/23/2015 Dale Tracey MD [facility] [id number] 06/23/2015 06/23/2015 Dale Tracey MD [facility] [id number] 06/23/2015 06/23/2015 Dale Tracey MD RX Request-- Folic Acid [id number] 07/06/2015 07/06/2015 Dale Tracey MD RX Request-- Folic Acid [id number] 07/06/2015 07/06/2015 Dale Tracey MD RX Request-- Folic Acid [id number] 07/06/2015 07/06/2015 Dale Tracey MD RX Request-- Folic Acid [id number] 07/06/2015 07/06/2015 Dale Tracey MD RX Request-- Folic Acid [id number] 07/06/2015 07/06/2015 Dale Tracey MD RX Request-- Folic Acid [id number] 07/06/2015 07/06/2015 Dale Tracey MD RX Request-- Folic Acid [id number] 07/06/2015 07/06/2015 Dale Tracey MD RX Request-- Folic Acid [id number] 07/06/2015 07/06/2015 Dale Tracey MD RX Request-- Folic Acid [id number] 07/06/2015 07/06/2015 Dale Tracey MD RX Request-- Folic Acid [id number] 07/06/2015 07/06/2015 Dale Tracey MD RX Request-- Folic Acid [id number] 07/06/2015 07/06/2015 Dale Tracey MD RX Request-- Folic Acid [id number] 07/06/2015 07/06/2015 Dale Tracey MD RX Request-- Folic Acid [id number] 07/06/2015 07/06/2015 Dale Tracey MD RX Request-- Folic Acid [id number] 07/06/2015 07/06/2015 Dale Tracey MD RX Request-- Folic Acid [id number] 07/06/2015 07/06/2015 Dale Tracey MD RX Request-- Folic Acid [id number] 07/06/2015 07/06/2015 Dale Tracey MD RX Request-- Folic Acid [id number] 07/06/2015 07/06/2015 Dale Tracey MD RX Request-- Folic Acid [id number] 07/06/2015 07/06/2015 Dale Tracey MD RX Request-- Folic Acid [id number] 07/06/2015 07/06/2015 Dale Tracey MD RX Request-- Folic Acid [id number] 07/06/2015 07/06/2015 Dale Tracey MD RX Request-- Folic Acid [id number] 07/06/2015 07/06/2015 Dale Tracey MD RX Request-- Folic Acid [id number] 07/06/2015 07/06/2015 Dale Tracey MD RX Request-- Folic Acid [id number] 07/06/2015 07/06/2015 Dale Tracey MD RX Request-- Folic Acid [id number] 07/06/2015 07/06/2015 Dale Tracey MD RX Request-- Folic Acid [id number] 07/06/2015 07/06/2015 Dale Tracey MD RX Request-- Folic Acid [id number] 07/06/2015 07/06/2015 Dale Tracey MD 3 [place] F/U [id number] 08/17/20 15 08/17/2015 Dale Tracey MD 3 [place] F/U [id number] 08/17/20 15 08/17/2015 Dale Tracey MD 3 [place] F/U [id number] 08/17/20 15 08/17/2015 Dale Tracey MD 3 [place] F/U [id number] 08/17/20 15 08/17/2015 Dale Tracey MD 3 [place] F/U [id number] 08/17/20 15 08/17/2015 Dale Tracey MD 3 [place] F/U [id number] 08/17/20 15 08/17/2015 Dale Tracey MD [facility] [place] F/U [id number] 08/17/20 15 08/17/2015 Dale Tracey MD 3 [place] F/U [id number] 08/17/20 15 08/17/2015 Dale Tracey MD [facility] [place] F/U [id number] 08/17/20 15 08/17/2015 Dale Tracey MD [facility] [place] F/U [id number] 08/17/20 15 08/17/2015 Dale Tracey MD [facility] [place] F/U [id number] 08/17/20 15 08/17/2015 Dale Tracey MD [facility] [place] F/U [id number] 08/17/20 15 08/17/2015 Dale Tracey MD [facility] [place] F/U [id number] 08/17/20 15 08/17/2015 Dale Tracey MD [facility] [place] F/U [id number] 08/17/20 15 08/17/2015 Dale Tracey MD [facility] [place] F/U [id number] 08/17/20 15 08/17/2015 Dale Tracey MD [facility] [place] F/U [id number] 08/17/20 15 08/17/2015 Dale Tracey MD 3 [place] F/U [id number] 08/17/20 15 08/17/2015 Dale Tracey MD [facility] [place] F/U [id number] 08/17/20 15 08/17/2015 Dale Tracey MD [place] F/U [id number] 08/17/20 15 08/17/2015 Dale Tracey MD [facility] [place] F/U [id number] 08/17/20 15 08/17/2015 Dale Tracey MD [facility] [place] F/U [id number] 08/17/20 15 08/17/2015 Dale Tracey MD [facility] [place] F/U [id number] 08/17/20 15 08/17/2015 Dale Tracey MD [facility] [place] F/U [id number] 08/17/20 15 08/17/2015 Dale Tracey MD [facility] [place] F/U [id number] 08/17/20 15 08/17/2015 Dale Tracey MD [facility] [id number] 09/15/20 15 09/15/2015 Dale Tracey MD [facility] [id number] 09/15/20 15 09/15/2015 Dale Tracey MD [facility] [id number] 09/15/20 15 09/15/2015 Dale Tracey MD [facility] [id number] 09/15/20 15 09/15/2015 Dale Tracey MD [facility] [id number] 09/15/20 15 09/15/2015 Dale Tracey MD [facility] [id number] 09/15/20 15 09/15/2015 Dale Tracey MD [facility] [id number] 09/15/20 15 09/15/2015 Dale Tracey MD [facility] [id number] 09/15/20 15 09/15/2015 Dale Tracey MD [facility] [id number] 09/15/20 15 09/15/2015 Dale Tracey MD [facility] [id number] 09/15/20 15 09/15/2015 Dale Tracey MD [facility] [id number] 09/15/20 15 09/15/2015 Dale Tracey MD [facility] [id number] 09/15/20 15 09/15/2015 Dale Tracey MD [facility] [id number] 09/15/20 15 09/15/2015 Dale Tracey MD [facility] [id number] 09/15/20 15 09/15/2015 Dale Tracey MD [facility] [id number] 09/15/20 15 09/15/2015 Dale Tracey MD [facility] [id number] 09/15/20 15 09/15/2015 Dale Tarcey MD [facility] [id number] 09/15/20 15 09/15/2015 Dale Tracey MD [facility] [id number] 09/15/20 15 09/15/2015 Dale Tracey MD [facility] [id number] 09/15/20 15 09/15/2015 Dale Tracey MD [facility] [id number] 09/15/20 15 09/15/2015 Dale Tracey MD [facility] [id number] 09/15/20 15 09/15/2015 Dale Tracey MD [facility] [id number] 09/15/20 15 09/15/2015 Dale Tracey MD [facility] [id number] 09/15/20 15 09/15/2015 Dale Tracey MD [facility] [id number] 09/15/20 15 09/15/2015 Dale Tracey MD [facility] [id number] 09/15/20 15 09/15/2015 Dale Tracey MD [facility] [id number] 09/15/20 15 09/15/2015 Dale Tracey MD [facility] [id number] 09/27/20 15 09/27/2015 Dale Tracey MD [facility] [id number] 09/27/20 15 09/27/2015 Dale Tracey MD [facility] [id number] 09/27/20 15 09/27/2015 Dale Tracey MD [facility] [id number] 09/27/20 15 09/27/2015 Dale Tracey MD [facility] [id number] 09/27/20 15 09/27/2015 Dale Tracey MD [facility] [id number] 09/27/20 15 09/27/2015 Dale Tracey MD [facility] [id number] 09/27/20 15 09/27/2015 Dale Tracey MD [facility] [id number] 09/27/20 15 09/27/2015 Dale Tracey MD [facility] [id number] 09/27/20 15 09/27/2015 Dale Tracey MD [facility] [id number] 09/27/20 15 09/27/2015 Dale Tracey MD [facility] [id number] 09/27/20 15 09/27/2015 Dale Tracey MD [facility] [id number] 09/27/20 15 09/27/2015 Dale Tracey MD [facility] [id number] 09/27/20 15 09/27/2015 Dale Tracey MD [facility] [id number] 09/27/20 15 09/27/2015 Dale Tracey MD [facility] [id number] 09/27/20 15 09/27/2015 Dale Tracey MD [facility] [id number] 09/27/20 15 09/27/2015 Dale Tracey MD [facility] [id number] 09/27/20 15 09/27/2015 Dale Tracey MD [facility] [id number] 09/27/20 15 09/27/2015 Dale Tracey MD [facility] [id number] 09/27/20 15 09/27/2015 Dale Tracey MD [facility] [id number] 09/27/20 15 09/27/2015 Dale Tracey MD [facility] [id number] 09/27/20 15 09/27/2015 Dale Tracey MD [facility] [id number] 09/27/20 15 09/27/2015 Dale Tracey MD [facility] [id number] 09/27/20 15 09/27/2015 Dale Tracey MD [facility] [id number] 09/27/20 15 09/27/2015 Dale Tracey MD [facility] [id number] 09/27/20 15 09/27/2015 Dale Tracey MD [facility] [id number] 11/01/2015 11/01/2015 Dale Tracey MD [facility] [id number] 11/01/2015 11/01/2015 Dale Tracey MD [facility] [id number] 11/01/2015 11/01/2015 Dale Tracey MD [facility] [id number] 11/01/2015 11/01/2015 Dale Tracey MD [facility] [id number] 11/01/2015 11/01/2015 Dale Tracey MD [facility] [id number] 11/01/2015 11/01/2015 Dale Tracey MD [facility] [id number] 11/01/2015 11/01/2015 Dale Tracey MD [facility] [id number] 11/01/2015 11/01/2015 Dale Tracey MD [facility] [id number] 11/01/2015 11/01/2015 Dale Tracey MD [facility] [id number] 11/01/2015 11/01/2015 Dale Tracey MD [facility] [id number] 11/01/2015 11/01/2015 Dale Tracey MD [facility] [id number] 11/01/2015 11/01/2015 Dale Tracey MD [facility] [id number] 11/01/2015 11/01/2015 Dale Tracey MD [facility] [id number] 11/01/2015 11/01/2015 Dale Tracey MD [facility] [id number] 11/01/2015 11/01/2015 Dale Tracey MD [facility] [id number] 11/01/2015 11/01/2015 Dale Tracey MD [facility] [id number] 11/01/2015 11/01/2015 Dale Tracey MD [facility] [id number] 11/01/2015 11/01/2015 Dale Tracey MD [facility] [id number] 11/01/2015 11/01/2015 Dale Tracey MD [facility] [id number] 11/01/2015 11/01/2015 Dale Tracey MD [facility] [id number] 11/01/2015 11/01/2015 Dale Tracey MD [facility] [id number] 11/01/2015 11/01/2015 Dale Tracey MD [facility] [id number] 11/01/2015 11/01/2015 Dale Tracey MD Up comming appointment for Hanny Ibrahim [id number] 11/08/2015 11/08/2015 Dale Tracey MD Up comming appointment for Hanny Collinsexter [id number] 11/08/2015 11/08/2015 Dale Tracey MD Up comming appointment for Hanny Kaurter [id number] 11/08/2015 11/08/2015 Dale Tracey MD Up comming appointment for Hanny Ibrahim [id number] 11/08/2015 11/08/2015 Dale Tracey MD Up comming appointment for Hanny Brewerindexter [id number] 11/08/2015 11/08/2015 Dale Tracey MD Up comming appointment for Hanny Brewerindexter [id number] 11/08/2015 11/08/2015 Dale Tracey MD Up comming appointment for Hanny Brewerindexter [id number] 11/08/2015 11/08/2015 Dale Tracey MD Up comming appointment for Hanny Collinsexter [id number] 11/08/2015 11/08/2015 Dale Tracey MD Up comming appointment for Hanny Brewerindexter [id number] 11/08/2015 11/08/2015 Dale Tracey MD Up comming appointment for Hanny Brewerindexter [id number] 11/08/2015 11/08/2015 Dale Tracey MD Up comming appointment for Hanny Brewerindexter [id number] 11/08/2015 11/08/2015 Dale Tracey MD Up comming appointment for Hanny Brewerindexter [id number] 11/08/2015 11/08/2015 Dale Tracey MD Up comming appointment for Hanny Brewerindexter [id number] 11/08/2015 11/08/2015 Dale Tracey MD Up comming appointment for Hanny Collinsexter [id number] 11/08/2015 11/08/2015 Dale Tracey MD Up comming appointment for Hanny Brewerindexter [id number] 11/08/2015 11/08/2015 Dale Tracey MD Up comming appointment for Hanny Brewerindexter [id number] 11/08/2015 11/08/2015 Dale Tracey MD Up comming appointment for Hanny Brewerindexter [id number] 11/08/2015 11/08/2015 Dale Tracey MD Up comming appointment for Hanny Brewerindexter [id number] 11/08/2015 11/08/2015 Dale Tracey MD Up comming appointment for Hanny Brewerindexter [id number] 11/08/2015 11/08/2015 Dale Tracey MD Up comming appointment for Hanny Brewerindexter [id number] 11/08/2015 11/08/2015 Dale Tracey MD Up comming appointment for Hanny Brewerindexter [id number] 11/08/2015 11/08/2015 Dale Tracey MD Up comming appointment for Hanny [place] [id number] 11/08/2015 11/08/2015 Dale Tracey MD xray order [id number] 11/16/19 16 11/16/2015 Dale Tracey MD xray order [id number] 11/16/19 16 11/16/2015 Dale Tracey MD xray order [id number] 11/16/19 16 11/16/2015 Dale Tracey MD xray order [id number] 11/16/19 16 11/16/2015 Dale Tracey MD xray order [id number] 11/16/19 16 11/16/2015 Dale Tracey MD xray order [id number] 11/16/19 16 11/16/2015 Dale Tracey MD xray order [id number] 11/16/19 16 11/16/2015 Dale Tracey MD xray order [id number] 11/16/19 16 11/16/2015 Dale Tracey MD xray order [id number] 11/16/19 16 11/16/2015 Dale Tracey MD xray order [id number] 11/16/19 16 11/16/2015 Dale Tracey MD xray order [id number] 11/16/19 16 11/16/2015 Dale Tracey MD xray order [id number] 11/16/19 16 11/16/2015 Dale Tracey MD xray order [id number] 11/16/19 16 11/16/2015 Dale Tracey MD xray order [id number] 11/16/19 16 11/16/2015 Dale Tracey MD xray order [id number] 11/16/19 16 11/16/2015 Dale Tracey MD xray order [id number] 11/16/19 16 11/16/2015 Dale Tracey MD xray order [id number] 11/16/19 16 11/16/2015 Dale Tracey MD xray order [id number] 11/16/19 16 11/16/2015 Dale Tracey MD xray order [id number] 11/16/19 16 11/16/2015 Dale Tracey MD xray order [id number] 11/16/19 16 11/16/2015 Dale Tracey MD xray order [id number] 11/16/19 16 11/16/2015 Dale Tracey MD humira delivery [id number] 11/23/19 16 11/23/2015 Dale Tracey MD humira delivery [id number] 11/23/19 16 11/23/2015 Dale Tracey MD humira delivery [id number] 11/23/19 16 11/23/2015 Dale Tracey MD humira delivery [id number] 11/23/19 16 11/23/2015 Dale Tracey MD humira delivery [id number] 11/23/19 16 11/23/2015 Dale Tracey MD humira delivery [id number] 11/23/19 16 11/23/2015 Dale Tracey MD humira delivery [id number] 11/23/19 16 11/23/2015 Dale Tracey MD [facility]ira delivery [id number] 11/23/19 16 11/23/2015 Dale Tracey MD humira delivery [id number] 11/23/19 16 11/23/2015 Dale Tracey MD humira delivery [id number] 11/23/19 16 11/23/2015 Dale Tracey MD humira delivery [id number] 11/23/19 16 11/23/2015 Dale Tracey MD humira delivery [id number] 11/23/19 16 11/23/2015 Dale Tracey MD [facility] delivery [id number] 11/23/19 16 11/23/2015 Dale Tracey MD humira delivery [id number] 11/23/19 16 11/23/2015 Dale Tracey MD [facility]ira delivery [id number] 11/23/19 16 11/23/2015 Dale Tracey MD humira delivery [id number] 11/23/19 16 11/23/2015 Dale Tracey MD [facility] delivery [id number] 11/23/19 16 11/23/2015 Dale Tracey MD [facility] delivery [id number] 11/23/19 16 11/23/2015 Dale Tracey MD [facility] delivery [id number] 11/23/19 16 11/23/2015 Dale Tracey MD humira delivery [id number] 11/23/19 16 11/23/2015 Dale Tracey MD humira delivery [id number] 11/23/19 16 11/23/2015 aDle Tracey MD New Refill Request [id number] 01/30/20 16 01/30/2016 Dale Tracey MD New Refill Request [id number] 01/30/20 16 01/30/2016 Dale Tracey MD New Refill Request [id number] 01/30/20 16 01/30/2016 Dale Tracey MD New Refill Request [id number] 01/30/20 16 01/30/2016 Dale Tracey MD New Refill Request [id number] 01/30/20 16 01/30/2016 Dale Tracey MD New Refill Request [id number] 01/30/20 16 01/30/2016 Dale Tracey MD New Refill Request [id number] 01/30/20 16 01/30/2016 Dale Tracey MD New Refill Request [id number] 01/30/20 16 01/30/2016 Dale Tracey MD New Refill Request [id number] 01/30/20 16 01/30/2016 Dale Tracey MD New Refill Request [id number] 01/30/20 16 01/30/2016 Dale Tracey MD New Refill Request [id number] 01/30/20 16 01/30/2016 Dale Tracey MD New Refill Request [id number] 01/30/20 16 01/30/2016 Dale Tracey MD New Refill Request [id number] 01/30/20 16 01/30/2016 Dale Tracey MD New Refill Request [id number] 01/30/20 16 01/30/2016 Dale Tracey MD New Refill Request [id number] 01/30/20 16 01/30/2016 Dale Tracey MD New Refill Request [id number] 01/30/20 16 01/30/2016 Dale Tracey MD New Refill Request [id number] 01/30/20 16 01/30/2016 Dale Tracey MD New Refill Request [id number] 01/30/20 16 01/30/2016 Dale Tracey MD New Refill Request [id number] 01/30/20 16 01/30/2016 Dale Tracey MD OV 3-30 [id number] 01/30/20 16 01/30/2016 Dale Tracey MD OV 3-30 [id number] 01/30/20 16 01/30/2016 Dale Tracey MD OV 3-30 [id number] 01/30/20 16 01/30/2016 Dale Tracey MD OV 3-30 [id number] 01/30/20 16 01/30/2016 Dale Tracey MD OV 3-30 [id number] 01/30/20 16 01/30/2016 Dale Tracey MD OV 3-30 [id number] 01/30/20 16 01/30/2016 Dale Tracey MD OV 3-30 [id number] 01/30/20 16 01/30/2016 Dale Tracey MD OV 3-30 [id number] 01/30/20 16 01/30/2016 Dale Tracey MD OV 3-30 [id number] 01/30/20 16 01/30/2016 Dale Tracey MD OV 3-30 [id number] 01/30/20 16 01/30/2016 Dale Tracey MD OV 3-30 [id number] 01/30/20 16 01/30/2016 Dale Tracey MD OV 3-30 [id number] 01/30/20 16 01/30/2016 Dale Tracey MD OV 3-30 [id number] 01/30/20 16 01/30/2016 Dale Tracey MD OV 3-30 [id number] 01/30/20 16 01/30/2016 Dale Tracey MD OV 3-30 [id number] 01/30/20 16 01/30/2016 Dale Tracey MD OV 3-30 [id number] 01/30/20 16 01/30/2016 Dale Tracey MD OV 3-30 [id number] 01/30/20 16 01/30/2016 Dale Tracey MD OV 3-30 [id number] 01/30/20 16 01/30/2016 Dale Tracey MD REFILLS [id number] 02/01/20 16 02/01/2016 Dale Tracey MD REFILLS [id number] 02/01/20 16 02/01/2016 Dale Tracey MD REFILLS [id number] 02/01/20 16 02/01/2016 Dale Tracey MD REFILLS [id number] 02/01/20 16 02/01/2016 Dale Tracey MD REFILLS [id number] 02/01/20 16 02/01/2016 Dale Tracey MD REFILLS [id number] 02/01/20 16 02/01/2016 Dale Tracey MD REFILLS [id number] 02/01/20 16 02/01/2016 Dale Tracey MD REFILLS [id number] 02/01/20 16 02/01/2016 Dale Tracey MD REFILLS [id number] 02/01/20 16 02/01/2016 Dale Tracey MD REFILLS [id number] 02/01/20 16 02/01/2016 Dale Tracey MD REFILLS [id number] 02/01/20 16 02/01/2016 Dale Tracey MD REFILLS [id number] 02/01/20 16 02/01/2016 Dale Tracey MD REFILLS [id number] 02/01/20 16 02/01/2016 Dale Tracey MD REFILLS [id number] 02/01/20 16 02/01/2016 Dale Tracey MD REFILLS [id number] 02/01/20 16 02/01/2016 Dale Tracey MD REFILLS [id number] 02/01/20 16 02/01/2016 Dale Tracey MD REFILLS [id number] 02/01/20 16 02/01/2016 Dale Tracey MD HUMIRA ARRIVAL DATE [id number] 02/24/20 16 02/24/2016 Dale Tracey MD HUMIRA ARRIVAL DATE [id number] 02/24/20 16 02/24/2016 Dale Tracey MD HUMIRA ARRIVAL DATE [id number] 02/24/20 16 02/24/2016 Dale Tracey MD HUMIRA ARRIVAL DATE [id number] 02/24/20 16 02/24/2016 Dale Tracey MD HUMIRA ARRIVAL DATE [id number] 02/24/20 16 02/24/2016 Dale Tracey MD HUMIRA ARRIVAL DATE [id number] 02/24/20 16 02/24/2016 Dale Tracey MD HUMIRA ARRIVAL DATE [id number] 02/24/20 16 02/24/2016 Dale Tracey MD HUMIRA ARRIVAL DATE [id number] 02/24/20 16 02/24/2016 Dale Tracey MD HUMIRA ARRIVAL DATE [id number] 02/24/20 16 02/24/2016 Dale Tracey MD HUMIRA ARRIVAL DATE [id number] 02/24/20 16 02/24/2016 Dale Tracey MD HUMIRA ARRIVAL DATE [id number] 02/24/20 16 02/24/2016 Dale Tracey MD HUMIRA ARRIVAL DATE [id number] 02/24/20 16 02/24/2016 Dale Tracey MD HUMIRA ARRIVAL DATE [id number] 02/24/20 16 02/24/2016 Dale Tracey MD HUMIRA ARRIVAL DATE [id number] 02/24/20 16 02/24/2016 Dale Tracey MD HUMIRA ARRIVAL DATE [id number] 02/24/20 16 02/24/2016 Dale Tracey MD HUMIRA ARRIVAL DATE [id number] 02/24/20 16 02/24/2016 Dale Tracey MD refill mtx [id number] 02/28/20 16 02/28/2016 Dale Tracey MD refill mtx [id number] 02/28/20 16 02/28/2016 Dale Tracey MD refill mtx [id number] 02/28/20 16 02/28/2016 Dale Tracey MD refill mtx [id number] 02/28/20 16 02/28/2016 Dale Tracey MD refill mtx [id number] 02/28/20 16 02/28/2016 Dale Tracey MD refill mtx [id number] 02/28/20 16 02/28/2016 Dale Tracey MD refill mtx [id number] 02/28/20 16 02/28/2016 Dale Tracey MD refill mtx [id number] 02/28/20 16 02/28/2016 Dale Tracey MD refill mtx [id number] 02/28/20 16 02/28/2016 Dale Tracey MD refill mtx [id number] 02/28/20 16 02/28/2016 Dale Tracey MD refill mtx [id number] 02/28/20 16 02/28/2016 Dale Tracey MD refill mtx [id number] 02/28/20 16 02/28/2016 Dale Tracey MD refill mtx [id number] 02/28/20 16 02/28/2016 Dale Tracey MD refill mtx [id number] 02/28/20 16 02/28/2016 Dale Tracey MD refill mtx [id number] 02/28/20 16 02/28/2016 Dale Tracey MD Update Demographics - Additional Info [id number] 03/01/2016 03/01/2016 Dale Tracey MD Update Demographics - Additional Info [id number] 03/01/2016 03/01/2016 Dale Tracey MD Update Demographics - Additional Info [id number] 03/01/2016 03/01/2016 Dale Tracey MD Update Demographics - Additional Info [id number] 03/01/2016 03/01/2016 Dale Tracey MD Update Demographics - Additional Info [id number] 03/01/2016 03/01/2016 Dale Tarcey MD Update Demographics - Additional Info [id number] 03/01/2016 03/01/2016 Dale Tracey MD Update Demographics - Additional Info [id number] 03/01/2016 03/01/2016 Dale Tracey MD Update Demographics - Additional Info [id number] 03/01/2016 03/01/2016 Dale Tracey MD Update Demographics - Additional Info [id number] 03/01/2016 03/01/2016 Dale Tracey MD Update Demographics - Additional Info [id number] 03/01/2016 03/01/2016 Dale Tracey MD Update Demographics - Additional Info [id number] 03/01/2016 03/01/2016 Dale Tracey MD Update Demographics - Additional Info [id number] 03/01/2016 03/01/2016 Dale Tracey MD Update Demographics - Additional Info [id number] 03/01/2016 03/01/2016 Dale Tracey MD Update Demographics - Additional Info [id number] 03/01/2016 03/01/2016 MD zeferino Cedeno [id number] 04/04/20 16 04/04/2016 MD zeferino Cedeno [id number] 04/04/20 16 04/04/2016 MD zeferino Cedeno [id number] 04/04/20 16 04/04/2016 MD zeferino Cedeno [id number] 04/04/20 16 04/04/2016 Dale Tracey MD [facility] [id number] 04/04/20 16 04/04/2016 Dale Tracey MD [facility] [id number] 04/04/20 16 04/04/2016 Dale Tracey MD [facility] [id number] 04/04/20 16 04/04/2016 Dale Tracey MD [facility] [id number] 04/04/20 16 04/04/2016 Dale Tracey MD [facility] [id number] 04/04/20 16 04/04/2016 Dale Tracey MD [facility] [id number] 04/04/20 16 04/04/2016 Dale Tracey MD [facility] [id number] 04/04/20 16 04/04/2016 Dale Tracey MD [facility] [id number] 04/04/20 16 04/04/2016 Dale Tracey MD [facility] [id number] 04/04/20 16 04/04/2016 Dale Tracey MD [facility] rx [id number] 04/11/20 16 04/11/2016 Dale Tracey MD humira rx [id number] 04/11/20 16 04/11/2016 Dale Tracey MD [facility] rx [id number] 04/11/20 16 04/11/2016 Dale Tracey MD [facility] rx [id number] 04/11/20 16 04/11/2016 Dale Tracey MD [facility] rx [id number] 04/11/20 16 04/11/2016 Dale Tracey MD [facility] rx [id number] 04/11/20 16 04/11/2016 Dale Tracey MD [facility] rx [id number] 04/11/20 16 04/11/2016 Dale Tracey MD [facility] rx [id number] 04/11/20 16 04/11/2016 Dale Tracey MD [facility] rx [id number] 04/11/20 16 04/11/2016 Dale Tracey MD [facility] rx [id number] 04/11/20 16 04/11/2016 Dale Tracey MD [facility] rx [id number] 04/11/20 16 04/11/2016 Dale Tracey MD [facility] rx [id number] 04/11/20 16 04/11/2016 Dale Tracey MD REFILLS [id number] 05/03/20 16 05/03/2016 Dale Tracey MD REFILLS [id number] 05/03/20 16 05/03/2016 Dale Tracey MD REFILLS [id number] 05/03/20 16 05/03/2016 Dale Tracey MD REFILLS [id number] 05/03/20 16 05/03/2016 Dale Tracey MD REFILLS [id number] 05/03/20 16 05/03/2016 Dale Tracey MD REFILLS [id number] 05/03/20 16 05/03/2016 Dael Tracey MD REFILLS [id number] 05/03/20 16 05/03/2016 Dale Tracey MD REFILLS [id number] 05/03/20 16 05/03/2016 Dale Tracey MD REFILLS [id number] 05/03/20 16 05/03/2016 Dale Tracey MD REFILLS [id number] 05/03/20 16 05/03/2016 Dale Tracey MD REFILLS [id number] 05/03/20 16 05/03/2016 Dale Tracey MD OV note [id number] 05/14/20 16 05/14/2016 Dale Tracey MD OV note [id number] 05/14/20 16 05/14/2016 Dale Tracey MD OV note [id number] 05/14/20 16 05/14/2016 Dale Tracey MD OV note [id number] 05/14/20 16 05/14/2016 Dale Tracey MD OV note [id number] 05/14/20 16 05/14/2016 Dale Tracey MD OV note [id number] 05/14/20 16 05/14/2016 Dale Tracey MD OV note [id number] 05/14/20 16 05/14/2016 Dale Tracey MD OV note [id number] 05/14/20 16 05/14/2016 Dale Tracey MD OV note [id number] 05/14/20 16 05/14/2016 Dale Tracey MD OV note [id number] 05/14/20 16 05/14/2016 Dale Tracey MD OV note [id number] 05/14/20 16 05/14/2016 Dale Tracey MD refill/mtx [id number] 05/28/20 16 05/28/2016 Dale Tracey MD refill/mtx [id number] 05/28/20 16 05/28/2016 Dale Tracey MD refill/mtx [id number] 05/28/20 16 05/28/2016 Dale Tracey MD refill/mtx [id number] 05/28/20 16 05/28/2016 Dale Tracey MD refill/mtx [id number] 05/28/20 16 05/28/2016 Dale Tracey MD refill/mtx [id number] 05/28/20 16 05/28/2016 Dale Tracey MD refill/mtx [id number] 05/28/20 16 05/28/2016 Dale Tracey MD refill/mtx [id number] 05/28/20 16 05/28/2016 Dale Tracey MD refill/mtx [id number] 05/28/20 16 05/28/2016 Dale Tracey MD 1 mth follow up [id number] 05/31/20 16 05/31/2016 Dale Tracey MD 1 mth follow up [id number] 05/31/20 16 05/31/2016 Dale Tracey MD 1 mth follow up [id number] 05/31/20 16 05/31/2016 Dale Tracey MD 1 mth follow up [id number] 05/31/20 16 05/31/2016 Dale Tracey MD 1 mth follow up [id number] 05/31/20 16 05/31/2016 Dale Tracey MD 1 mth follow up [id number] 05/31/20 16 05/31/2016 Dale Tracey MD 1 mth follow up [id number] 05/31/20 16 05/31/2016 Dale Tracey MD 1 mth follow up [id number] 05/31/20 16 05/31/2016 Dale Tracey MD FOL[facility] REFILL [id number] 06/27/20 16 06/27/2016 Dale Tracey MD F[facility] [employer] REFILL [id number] 06/27/20 16 06/27/2016 Dale Tracey MD F[facility] [employer] REFILL [id number] 06/27/20 16 06/27/2016 Dale Tracey MD FOLIC ACID REFILL [id number] 06/27/20 16 06/27/2016 Dale Tracey MD FOLIC ACID REFILL [id number] 06/27/20 16 06/27/2016 Dale Tracey MD FOLIC [employer] REFILL [id number] 06/27/20 16 06/27/2016 Dale Tracey MD FOLIC ACID REFILL [id number] 06/27/20 16 06/27/2016 Dale Tracey MD [facility] [id number] 07/04/20 16 2016 Dale Tracey MD [facility] [id number] 07/04/20 16 2016 Dale Tracey MD [facility] [id number] 07/04/20 16 2016 Dale Tracey MD [facility] [id number] 07/04/20 16 2016 Dale Tracey MD [facility] [id number] 07/04/20 16 2016 Dale Tracey MD H[facility]IV[facility] [id number] 07/04/20 16 2016 Dale Tracey MD [facility] rx [id number] 07/11/20 16 07/11/2016 Dale Tracey MD [facility] rx [id number] 07/11/20 16 07/11/2016 Dale Tracey MD [facility] rx [id number] 07/11/20 16 07/11/2016 Dale Tracey MD [facility] rx [id number] 07/11/20 16 07/11/2016 Dale Tracey MD [facility] rx [id number] 07/11/20 16 07/11/2016 Dale Tracey MD 3 mth followup [id number] 08/30/20 16 08/30/2016 Dale Tracey MD 3 mth followup [id number] 08/30/20 16 08/30/2016 Dale Tracey MD [facility] followup [id number] 08/30/20 16 08/30/2016 Dale Tracey MD [facility] followup [id number] 08/30/20 16 08/30/2016 Dale Tracey MD pneumonia [id number] 09/20/20 16 09/20/2016 Dale Tracey MD pneumonia [id number] 09/20/20 16 09/20/2016 Dale Tracey MD [facility] [id number] 09/20/20 16 09/20/2016 Dale Tracey MD [facility] [id number] 10/16/20 16 10/16/2016 Dale Tracey MD [facility] [id number] 10/16/20 16 10/16/2016 Dale Tracey MD [facility] [id number] 11/30/19 17 11/30/2016 Dale Tracey [facility] [place] [facility] [id number] Vickey aCputo 04/24/2018 04/25/2018 [facility] [place] [facility] [place] [facility] [id number] Lasha Kaur 04/25/2020 04/26/2020 [facility] [place] [facility] [place] [facility] [id number] Meng Ag 05/10/2020 06/09/2020 [facility] [place] Procedures No Data Provided for This Section Assessment and Plan No Data Provided for This Section Plan of Care No Data Provided for This Section Social History Social History Date Source Social History TypeResponse 06/09/2020 [facility] [place] No data available for this section 04/26/2020 [facility] [place] Social History ElementQualifiersDate Rep orted Tobacco Use: [...]
--- OUTSIDE RECORDS SUMMARY | 2020-07-16 14:54 | XMS REPORT | Continuity of Care Document ---
Author Author [facility] t Organization [facility] Address [address] [place] [address] Phone Unavailable Care Team Providers Care Cloud Operations Engineer Name Role Phone Adi SOLO Attphys Unavailable Marques Ag Attphys Eligio Kaur Attphys George Jimenez Attphys [phone] Cy Tracey Attphys Payers Payer Name Policy Type Policy Number Effective Date Expiration Date S esperanza [employer] MEDICARE PPO [id number] 2019 00:00:00 Problems Condition Name Condition Details Condition Category Status Onset Date Resolution Date Last Treatment Date Treating Clinician Comments Source RT KNEE RT K NEE Active 05/05/2020 [facility] [place] Diagnosis Active 2020-05-05 12:00:00 2020-05-10 08:48:00 Akin Shah Hiatal hernia Hiatal Hernia Problem Active 2019-10-08 00:00:00 [facility] M54.31 - SCIATICA, RIGHT SIDE M54.31 - SCIATICA, RIGHT SIDE Active 04/24/2018 [facility] [place] Diagnosis Active 2018-04-24 00:0 1:00 2018-04-24 13:23:00 Akin Shah Peripheral vascular disease Peripheral Vascular Disease Problem Active 2018-01-20 00:00:00 [facility] Crohn's disease Crohn's Disease Problem Active 2018-01-20 00:00:00 [facility] History of malignant neoplasm of colon History of Malignant Neoplasm of Colon Problem Active 2016-11-23 00:00:00 [facility] Basal cell carcinoma of skin Basal Cell Carcinoma of Skin Problem Active 2016-07-31 00:00:00 [facility] Hyperlipidemia Hyperlipidemia Problem Active 2016-07-31 00:00:00 [facility] Gout Gout Problem Active 2016-07-31 00:00:00 [facility] Neuropathy Neuropathy Problem Active 2016-07-31 00:00:00 [facility] Hypertensive disorder Hypertensive Disorder Problem Active 201 04-12-27 00:00:00 [facility] nnamditice Gastroesophageal reflux disease Gastroesophageal Reflux Disease Pro blem Active 2016-07-31 00:00:00 [facility] Rheumatoid arthritis Rheumatoid Arthritis Problem [facility] toe Hammer Toe Problem Active 2016-07-31 00:00:00 [facility] Body mass index (BMI) 37.0-37.9, adult Body mass index (BMI) 37.0-37.9, adult Active Problem 06/25/2020 Dale Tracey Problem Ac tive 2020-06-25 02:45:24 Akin painter Morbid (severe) obesity due to excess [...] Problem Active 2020-06-25 02:45:24 Akin Shah Other assisted (current) drug therapy Other assisted (current) drug therapy Active Problem 06/25/2020 Dale Tracey Problem Ac tive 2020-06-25 02:45:24 Akin painter Body mass index (BMI) 34.0-34.9, adult Body mass index (BMI) 34.0-34.9, adult Active Problem 05/28/2019 Dale Tracey Problem Ac tive 2019-05-28 02:46:55 Akin painter Crohn's disease, unspecified, with other complication Crohn's disease, unspecified, with other complication Active Problem 06/25/2020 Dale Tracey Problem Active 2020-06-25 02:45:24 Akin Shah Inflammatory arthritis Infl ammatory arthritis Active Diagnosis 06/25/2020 Dale Tracey Diagnosis Active 2020-06-25 02:45:24 Akin Shah Lumbar degenerative disc disease Lumbar degenerative disc disease Active Problem 06/25/2020 Dale Tracey Problem Active 2020-06-25 02:45:24 Akin Shah Primary osteoarthritis of right knee Primary osteoarthritis of right knee Active Problem 06/25/2020 Dale Tracey Problem Active 2020-06-25 02:45:24 Aury Shah Rheumatoid arthritis Rheu matoid arthritis Active Problem 12/03/2019 Dale Tracey Problem Active 2019-12-03 03:47:01 Akin Shah Long-term (current) use of other medications - High Ri sk Long-term (current) use of other medications - High Risk Active Diagnosis 02/18/2019 Dale Tracey Diagnosis Active 2019-02-18 02:46:14 Akin Shah Osteoporosis screening Oste oporosis screening Active Diagnosis 05/01/2018 Dale Tracey Diagnosis Active 2018-05-01 02:48:52 Akin Shah Crohn's disease Croh n's disease Active Problem 10/17/2016 Dalekath Tracey Problem Active 2016-10-17 03:47:59 [facility] [place] RENAL INSUFFICIENCY REFUGIO L INSUFFICIENCY Active Problem 10/17/2016 Dale Tracey Problem Active 2016-10-17 03:47:59 [facility] 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 Active Problem 10/17/2016 Dalekath Tracey Problem Active 2016-10-17 03:47:59 [facility] Lumbar Radiculopathy Lumb ar Radiculopathy Active Problem 10/17/2016 Dalekath Tracey Problem Active 2016-10-17 03:47:59 [facility] [place] Rheumatoid arthritis with unknown rheumatoid factor [facility] Rheumatoid arthritis with unknown rheumatoid factor status Active Problem 02/01/2016 Dale Tracey Problem Active 2016-02-01 02:59:54 Akin Shah retirement (current) use of opiate analgesic retirement (current) use of opiate analgesic Active Diagnosis 05/28/2019 Dale Tracey Diagnosis Active 2019-05-28 02:46:55 Akin Shah Degeneration of lumbar or lumbosacral intervertebral d isc Degeneration of lumbar or lumbosacral intervertebral disc Active Diagnosis 06/17/2014 Dale Tracey Diagnosis Active [...] 12/10/2015 Dale Tracey Diagnosis Active 2015-12-10 04:08:55 [facility] [place] Rheumatoid arthritis Rheu matoid arthritis Active Problem 06/25/2020 Dale Tracey Problem Active 2020-06-25 02:45:24 Akin Shah Immunocompromised state Immu nocompromised state Active Problem 06/25/2020 Dale Tracey Problem Active 2020-06-25 02 :45:24 [facility] [place] Allergies, Adverse Reactions, Alerts Allergy Name Allergy Type Status Severity Reaction(s) Onset Date Inacti ve Date Treating Clinician Comments Source Methotrexate Methotrexate Active PNA 2020-05-05 00:00:00 Akin Shah Plaquenil Plaquenil Active hives 2020-05-05 00:00:00 [facility] [place] HYDROXYCHLOROQUINE SULFATE Allergy to substance Active 2018-09-01 00:00:00 [facility] Pract ice Plaquenil Allergy to substance Active [facility] Practice Social History Social Habit Start Date Stop Date Quantity Comments Source Sex Assigned At MD Fried Social History 2020-04-26 04:59:00 2020-04-26 04:59:00 Akin Shah TobaccoUse: 2016-11-30 00:00:00 2016-11-30 00:00:00 [facility] Smoking Status Start Date Stop Date Source Former Smoker [facility] Medications Ordered Medication Name Filled Medication Name Start Date Stop Da te Current Medication? Ordering Clinician Indication Dosage Frequency Signature (SIG) Comments Components Source Humira 2020-06-25 02:45:24 Yes Ricky Tracey 0.4 ml [facility] Vitamin B-12 2020-05-07 02:45:34 Yes Kirk Hanson 1 tablet [facility] Centrum Silver Adult 50+ 2020-05-07 02:45:34 Yes Sterling mbriz 1 tablet [facility] Simvastatin 2020-05-07 02:45:34 Yes Kirk Hanson 1 tablet in the evening [facility] Pentoxifylline 2020-05-07 02:45:34 Yes Kirk Hanson 1 tablet with meals [facility] Claritin 2020-05-07 02:45:34 Yes Kirk Hanson 1 t ablet [facility] Zinc 2020-05-07 02:45:34 Yes Kirk Hanson 1 table t [facility] Lisinopril 2020-05-07 02:45:34 Yes Kirk Hanson 1 tablet [facility] Lyrica 2020-05-07 02:45:34 Yes Kirk Hanson 1 cap nichol [facility] Allopurinol 2020-05-07 02:45:34 Yes Kirk Hanson 1 tablet [facility] Omeprazole 2020-05-07 02:45:34 Yes Kirk Hanson 1 capsule [facility] Vitamin D-3 2020-05-07 02:45:34 Yes Kirk Hanson 1 capsule [facility] Vitamin C 2020-05-07 02:45:34 Yes Kirk Hanson 1 capsule [facility] Sulfasalazine 2020-05-07 02:45:34 Yes Kirk Hanson 1 tablet [facility] Folic Acid 2020-05-07 02:45:34 Yes Kirk Hanson TAKE ONE TABLET BY MOUTH DAILY [facility] Synvisc One 2019-12-22 00:00:00 Yes Kirk Hanson 6ml [facility] Prednisone Taper 2019-08-25 00:00:00 Yes Ricky Tracey as directed [facility] Sulfasalazine 2019-07-09 00:00:00 Yes Wajeeha Kassie 1 tablet [facility] Hydrocodone-Acetaminophen 2019-06-18 00:00:00 Yes Wajeeh a Kassie 1 tablet as needed [facility] Humira 2019-05-28 02:46:55 Yes Wajeeha Kassie 0.8 ml [facility] Fish Oil 2019-05-28 02:46:55 Yes Wajeeha Kassie 1 capsule [facility] Vascepa 2019-05-28 02:46:55 Yes Wajeeha Kassie 2 capsules with meals [facility] Folic Acid 2019-05-14 00:00:00 Yes Kirk Hanson 1 tablet [facility] Folic Acid 2019-01-30 00:00:00 Yes Ricky Tracey 1 tablet [facility] Hydrocodone-Acetaminophen 2019-01-07 03:47:15 Yes Doreen Lofton 1 tablet as needed [facility] Folic Acid 2019-01-07 03:47:15 Yes Doreen Lofton TAKE ONE TABLET BY MOUTH DAILY EXCEPT FOR SATURDAY DIRECTED [facility] Apriso 2018-05-01 02:48:52 Yes Doreen Lofton 4 capsules in the morning [facility] Tizanidine HCl 2018-05-01 02:48:52 Yes Doreen Lofton 1 tablet as needed [facility] Sulfasalazine 2017-12-01 00:00:00 Yes Doreen Lofton 1 tablet [facility] Hymovis 2017-10-02 00:00:00 Yes Ricky Tracey as directed [facility] Synvisc One 2017-09-02 00:00:00 Yes Doreen Lofton 1 injection [facility] Centrum Silver Adult 50+ 2017-06-05 02:45:49 Yes Doreen Lofton 1 tablet [facility] Simvastatin 2017-06-05 02:45:49 Yes Doreen Lofton 1 tablet in the evening [facility] Claritin 2017-06-05 02:45:49 Yes Doreen Lofton 1 tablet [facility] Fish Oil 2017-06-05 02:45:49 Yes Doreen Lofton 1 capsule [facility] Lyrica 2017-06-05 02:45:49 Yes Doreen Lofton 1 c apsule [facility] Allopurinol 2017-06-05 02:45:49 Yes Doreen Lofton 1 tablet [facility] Apriso 2017-06-05 02:45:49 Yes Doreen Lofton 4 capsules in the morning [facility] Lisinopril 2017-06-05 02:45:49 Yes Doreen Lofton 1 tablet [facility] Hydrocodone-Acetaminophen 2017-06-05 02:45:49 Yes Doreen Lofton 1 tablet as needed [facility] Humira 2017-06-05 02:45:49 Yes Doreen Lofton 0.8 ml [facility] Omeprazole 2017-06-05 02:45:49 Yes Doreen Lofton 1 capsule [facility] Vitamin C 2017-06-05 02:45:49 Yes Droeen Lofton 1 capsule [facility] Pentoxifylline 2017-06-05 02:45:49 Yes Doreen Lofton 1 tablet with meals [facility] [place] Vitamin D-3 2017-06-05 02:45:49 Yes Doreen Lofton 1 capsule [facility] [place] Zinc 2017-06-05 02:45:49 Yes Doreen Lofton 1 tab let [facility] [place] Vitamin B-12 2017-06-05 02:45:49 Yes Doreen Lofton 1 tablet [facility] Methotrexate (Anti-Rheumatic) 2017-03-07 02:46:24 Yes Wa jeeha Kassie as directed [facility] [place] Sulfasalazine 2017-02-28 00:00:00 Yes Doreen Lofton 1 tablet [facility] Hydrocodone-Acetaminophen 2016-12-30 00:00:00 Yes Wajeeh a Kassie 1 tablet as needed [facility] Sulfamethoxazole-TMP DS 2016-12-20 03:50:55 Yes Wajeeha Kassie 1 tablet [facility] [place] Folic Acid 2016-09-04 02:58:38 Yes Wajeeha Kassie TAKE DIRECTED BY MOUTH EVERY DAY EXCEPT FOR SATURDAY Sebastian [facility] [place] Folic Acid 2016-06-07 03:06:20 Yes Wajeeha Kassie TAKE DIRECTED BY MOUTH EVERY DAY EXCEPT FOR SATURDAY Sebastian [facility] [place] Humira Pen 2015-11-12 00:00:00 Yes Wajeeha Kassie 0.8 [facility] [place] Nexium 2015-10-18 03:47:19 Yes Wajeeha Kassie 1 c apsule [facility] [place] Trilipix 2015-10-18 03:47:19 Yes Wajeeha Kassie 1 capsule [facility] [place] Folic Acid 2015-08-17 00:00:00 Yes Wajeeha Kassie 1 tablet [facility] [place] PredniSONE 2015-05-26 00:00:00 Yes Wajeeha Kassie 1 tab [facility] [place] Methotrexate (Anti-Rheumatic) 2015-02-18 00:00:00 Yes Wa jeeha Kassie as directed [facility] [place] Folic Acid 2015-02-18 00:00:00 Yes Wajeeha Kassie as directed [facility] [place] Humira Pen 2014-10-18 04:03:27 Yes Ricky Tracey 0.8 [facility] [place] Soma 2014-08-28 02:49:52 Yes Ricky Pintoer TAKE 1 TABLET BY MOUTH 3 TIMES A DAY NEEDED [facility] Hydrocodone-Acetaminophen 2014-08-12 03:30:31 Yes Ricky Tracey 1 tablet as needed [facility] Asacol 2014-08-12 03:03:29 Yes Doreen Lofton 2 t ablets [facility] Gabapentin 2014-08-12 03:03:29 Yes Doreen Lofton 1 capsule [facility] Hydrocodone-Acetaminophen 2014-05-26 00:00:00 Yes Ricky Tracey 1 tablet as needed [facility] Soma 2014-05-18 00:00:00 Yes Doreen Lofton 1 tab let as needed [facility] allopurinol 300 mg tablet TAKE ONE TABLET BY MOUTH SHRUTHI LY allopurinol 300 mg tablet TAKE ONE TABLET BY MOUTH DAILY No allopurinol 300 mg tablet TAKE ONE TABLET BY MOUTH DAILY [facility] Apriso 0.375 gram capsule,extended release Apriso 0.37 5 gram capsule,extended release No Apriso 0.375 gram capsule,exte nded release [facility] ascorbic acid (vitamin C) 500 mg capsule ascorbic acid (vitamin C) 500 mg capsule No ascorbic acid (vitamin C) 500 mg capsule [facility] Centrum Silver one daily Centrum Silver one daily No Centrum Silver one [facility]rum Silver 0.4 mg-300 mcg-250 mcg tablet Centrum S ilver 0.4 mg-300 mcg-250 mcg tablet No Centrum Silver 0.4 mg-300 m cg-250 mcg tablet [facility] Claritin-D 1 TAB EVERY DAY prn Claritin-D 1 TAB EVERY DAY prn No Claritin-D 1 TAB EVERY DAY prn [facility] folic acid 1 mg tablet Take 1 tablet every day by oral route. folic acid 1 mg tablet Take 1 tablet every day by oral route. No 1 Q1D folic acid 1 mg tablet Take 1 tablet every day by oral route. [facility] Humira Pen 40 mg/0.8 mL subcutaneous kit 1 shot every 2 weeks Humira Pen 40 mg/0.8 mL subcutaneous kit 1 shot every 2 weeks No Humira Pen 40 mg/0.8 mL subcutaneous kit 1 shot every 2 weeks [facility] hydrocodone 10 mg-acetaminophen 325 mg tablet hydrocod one 10 mg-acetaminophen 325 mg tablet No hydrocodone 10 mg-acetam inophen 325 mg tablet [facility] lisinopril 30 mg tablet TAKE ONE TABLET BY MOUTH DAILY lisinopril 30 mg tablet TAKE ONE TABLET BY MOUTH DAILY No lisinopril 30 mg tablet TAKE ONE TABLET BY MOUTH DAILY [facility] Lyrica 75 mg capsule Take 1 capsule 3 times a day by o ral route. Lyrica 75 mg capsule Take 1 capsule 3 times a day by oral route. No 1capsule(s) TID Lyrica 75 mg capsule Take 1 capsule 3 times a day by oral route. [facility] omega-3 acid ethyl esters 1 gram capsule TAKE TWO CAPS ULES BY MOUTH TWICE A DAY omega-3 acid ethyl esters 1 gram capsule TAKE TWO CAPSULES BY MOUTH TWICE A DAY No omega-3 ac id ethyl esters 1 gram capsule TAKE TWO CAPSULES BY MOUTH TWICE A DAY [facility] ice omeprazole 40 mg capsule,delayed release Take 1 capsule every day by oral route. omeprazole 40 mg capsule,delayed release Take 1 capsule every day by oral route. No omeprazole 40 mg capsule,delayed release Take 1 capsule every day by oral route. [facility] ice pentoxifylline ER 400 mg tablet,extended release pento xifylline ER 400 mg tablet,extended release No pentoxifylline ER 400 mg tablet,extended release [facility] ice simvastatin 40 mg tablet TAKE ONE TABLET BY MOUTH SHILPI Y simvastatin 40 mg tablet TAKE ONE TABLET BY MOUTH DAILY No simvastatin 40 mg tablet TAKE ONE TABLET BY MOUTH DAILY [facility] ctice sulfasalazine 500 mg tablet Take 1 table t twice a day by oral route for 30 days. sulfasalazine 500 mg tablet Take 1 table t twice a day by oral route for 30 days. No sulfasalazine 50 0 mg tablet Take 1 tablet twice a day by oral route for 30 days. [facility] ice Suprep Bowel Prep Kit 17.5 gram-3.13 gram-1.6 gram ora l solution Suprep Bowel Prep Kit 17.5 gram-3.13 gram-1.6 gram oral solution No Suprep Bowel Prep Kit 17.5 gram-3.13 gram-1.6 gram oral solution [facility] Vitamin B-12 100 mcg tablet Vitamin B-12 100 mcg tablet N o Vitamin B-[address] [facility] jasmina Vitamin C 500 mg capsule,extended releas e Take 1 capsule every day by oral route. Vitamin C 500 mg capsule,extended releas e Take 1 capsule every day by oral route. No 1capsule(s) Q1D Vitamin C 500 mg capsule,extended release Take 1 capsule every day by oral route. [facility] Vitamin D3 25 mcg (1,000 unit) capsule Take 1 capsule every day by oral route. Vitamin D3 25 mcg (1,000 unit) capsule Take 1 capsule every day by oral route. No 1capsule(s) Q1D Vitamin D3 25 mcg (1,000 unit) capsule Take 1 capsule every day by oral route. [facility] zinc one daily zinc one daily No zinc one d aily [facility] zinc 50 mg tablet zinc 50 mg tablet No zinc 50 mg tablet [facility] Immunizations Ordered Immunization Name Filled Immunization Name Date Status Comments Source influenza, high dose seasonal influenza, high dose seasonal 2018 11:08:27 Completed [facility] pneumococcal polysaccharide PPV23 pneumococcal polysaccharid e PPV23 2018-10-13 09:32:00 Completed [facility] ice influenza, high dose seasonal influenza, high dose seasonal 2017 09:10:00 Completed [facility] influenza, high dose seasonal influenza, high dose seasonal 2016 15:54:44 Completed [facility] zoster live zoster live 2017-07-31 10:36:16 Completed [facility] pneumococcal conjugate PCV 13 pneumococcal conjugate PCV 13 2016 10:35:36 Completed [facility] Tdap Tdap 2016-11-18 00:00:[address] [facility] influenza, seasonal, injectable influenza, seasonal, injecta ble 2016-07-31 10:05:00 Completed [facility] ice Pneumococcal Conjugate, unspecified formulation Pneumo coccal Conjugate, unspecified formulation 2015-07-05 00:00:00 [facility] influenza, injectable, quadrivalent influenza, injectable, q uadrivalent 2015-07-05 00:00:00 Completed [facility] ice Vital Signs Vital Name Observation Time Observation Value Comments Source BP Diastolic 2020-04-20 00:00:00 75 mm[Hg] [facility] Height 2020-04-20 00:00:00 69 [in_i] [facility] BMI (Body Mass Index) 2020-04-20 00:00:00 37.9 kg/m2 [facility] BP Systolic 2020-04-20 00:00:00 156 mm[Hg] [facility] Body Weight 2020-04-20 00:00:00 256.4 [lb_av] [facility] [...] (Body Mass Index) 2019-01-12 00:00:00 39.6 kg/m2 [facility] BP Systolic 2019-01-12 00:00:00 130 mm[Hg] [facility] Body Weight 2019-01-12 00:00:00 268 [lb_av] [facility] Weight 2020-02-04 13:15:00 [facility] [place] Height 2020-02-04 13:15:00 [facility] Temperature Oral (F) 2020-02-04 13:15:00 97.3 F [facility] Heart Rate 2020-02-04 13:15:00 [facility] Diastolic (mm Hg) 2020-02-04 13:15:00 [facility] [place] Systolic (mm Hg) 2020-02-04 13:15:00 Sebastian [facility] [place] Weight 2019-12-22 15:45:00 [facility] Height 2019-12-22 15:45:00 [facility] [place] Temperature Oral (F) 2019-12-22 15:45:00 97.5 F [facility] [place] Heart Rate 2019-12-22 15:45:00 [facility] [place] Diastolic (mm Hg) 2019-12-22 15:45:00 [facility] [place] Systolic (mm Hg) 2019-12-22 15:45:00 Sebastian [facility] [place] Weight 2019-05-19 13:45:00 [facility] Height 2019-05-19 13:45:00 [facility] Temperature Oral (F) 2019-05-19 13:45:00 98.1 F [facility] [place] [facility] Rate 2019-05-19 13:45:00 [facility] [place] Diastolic (mm Hg) 2019-05-19 13:45:00 [facility] [place] Systolic (mm Hg) 2019-05-19 13:45:00 Sebastian rial [place] Weight 2019-01-01 14:00:00 [facility] [place] Height 2019-01-01 14:00:00 [facility] Temperature Oral (F) 2019-01-01 14:00:00 97.9 F [facility] Heart Rate 2019-01-01 14:00:00 [facility] Diastolic (mm Hg) 2019-01-01 14:00:00 [facility] [place] Systolic (mm Hg) 2019-01-01 14:00:00 Sebastian [facility] [place] Weight 2018-09-01 15:45:00 [facility] [place] Height 2018-09-01 15:45:00 [facility] [place] Temperature Oral (F) 2018-09-01 15:45:00 98.1 F [facility] [place] [facility] Rate 2018-09-01 15:45:00 [facility] [place] Diastolic (mm Hg) 2018-09-01 15:45:00 [facility] [place] Systolic (mm Hg) 2018-09-01 15:45:00 Sebastian rial [place] Weight 2018-08-20 13:00:00 [facility] [place] Height 2018-08-20 13:00:00 [facility] Temperature Oral (F) 2018-08-20 13:00:00 97.4 F [facility] Heart Rate 2018-08-20 13:00:00 [facility] [place] Diastolic (mm Hg) 2018-08-20 13:00:00 [facility] [place] Systolic (mm Hg) 2018-08-20 13:00:00 Sebastian rial [place] Weight 2018-04-22 13:00:00 [facility] [place] Height 2018-04-22 13:00:00 [facility] Temperature Oral (F) 2018-04-22 13:00:00 97.9 F [facility] [place] Heart Rate 2018-04-22 13:00:00 [facility] [place] Diastolic (mm Hg) 2018-04-22 13:00:00 [facility] [place] Systolic (mm Hg) 2018-04-22 13:00:00 Sebastian rial [place] BP Diastolic 2018-01-21 00:00:00 80 mm[Hg] [facility] Height 2018-01-21 00:00:00 69 [in_i] [facility] BP Systolic 2018-01-21 00:00:00 158 mm[Hg] [facility] Weight 2017-12-23 16:45:00 [facility] Height 2017-12-23 16:45:00 [facility] Temperature Oral (F) 2017-12-23 16:45:00 97.7 F [facility] [place] Heart Rate 2017-12-23 16:45:00 [facility] Diastolic (mm Hg) 2017-12-23 16:45:00 [facility] [place] Systolic (mm Hg) 2017-12-23 16:45:00 Sebastian [facility] [place] Weight 2017-10-22 14:00:00 [facility] [place] Height 2017-10-22 14:00:00 [facility] [place] Temperature Oral (F) 2017-10-22 14:00:00 98.7 F [facility] Heart Rate 2017-10-22 14:00:00 [facility] [place] Diastolic (mm Hg) 2017-10-22 14:00:00 [facility] [place] Systolic (mm Hg) 2017-10-22 14:00:00 Sebastian rial [place] BP Diastolic 2017-10-14 00:00:00 82 mm[Hg] [facility] Height 2017-10-14 00:00:00 69 [in_i] [facility] BMI (Body Mass Index) 2017-10-14 00:00:00 38.7 kg/m2 [facility] BP Systolic 2017-10-14 00:00:00 148 mm[Hg] [facility] Body Weight 2017-10-14 00:00:00 262 [lb_av] [facility] Weight 2017-09-02 15:00:00 [facility] Height 2017-09-02 15:00:00 [facility] Temperature Oral (F) 2017-09-02 15:00:00 97.9 F [facility] Heart Rate 2017-09-02 15:00:00 [facility] Diastolic (mm Hg) 2017-09-02 15:00:00 [facility] Systolic (mm Hg) 2017-09-02 15:00:00 [facility] BP Diastolic 2017-07-31 00:00:00 72 mm[Hg] [facility] Height 2017-07-31 00:00:00 69 [in_i] [facility] BMI (Body Mass Index) 2017-07-31 00:00:00 38.8 kg/m2 [facility] BP Systolic 2017-07-31 00:00:00 134 mm[Hg] [facility] Body Weight 2017-07-31 00:00:00 263 [lb_av] [facility] Weight 2017-06-03 18:15:00 [facility] Height 2017-06-03 18:15:00 [facility] Temperature Oral (F) 2017-06-03 18:15:00 98.4 F [facility] Heart Rate 2017-06-03 18:15:00 [facility] Diastolic (mm Hg) 2017-06-03 18:15:00 [facility] Systolic (mm Hg) 2017-06-03 18:15:00 [facility] Weight 2017-02-28 13:15:00 [facility] Height 2017-02-28 13:15:00 [facility] Temperature Oral (F) 2017-02-28 13:15:00 98.1 F [facility] Heart Rate 2017-02-28 13:15:00 [facility] Diastolic (mm Hg) 2017-02-28 13:15:00 [facility] Systolic (mm Hg) 2017-02-28 13:15:00 [facility] BP Diastolic 2017-01-28 00:00:00 62 mm[Hg] [facility] Height 2017-01-28 00:00:00 69 [in_i] [facility] BMI (Body Mass Index) 2017-01-28 00:00:00 38.7 kg/m2 [facility] BP Systolic 2017-01-28 00:00:00 120 mm[Hg] [facility] Body Weight 2017-01-28 00:00:00 262 [lb_av] [facility] Weight 2016-11-30 14:15:00 [facility] Height 2016-11-30 14:15:00 [facility] Temperature Oral (F) 2016-11-30 14:15:00 96.3 F [facility] Heart Rate 2016-11-30 14:15:00 [facility] Diastolic (mm Hg) 2016-11-30 14:15:00 [facility] [place] Systolic (mm Hg) 2016-11-30 14:15:00 [facility] [place] BP Diastolic 2016-11-26 00:00:00 77 mm[Hg] [facility] Body Weight 2016-11-22 00:00:00 269 [lb_av] [facility] BP Diastolic 2016-09-05 00:00:00 68 mm[Hg] [facility] Height 2016-09-05 00:00:00 71 [in_i] [facility] BMI (Body Mass Index) 2016-09-05 00:00:00 36.8 kg/m2 [facility] BP Systolic 2016-09-05 00:00:00 114 mm[Hg] [facility] Body Weight 2016-09-05 00:00:00 264 [lb_av] [facility] Weight 2016-08-30 13:30:00 [facility] Height 2016-08-30 13:30:00 [facility] Temperature Oral (F) 2016-08-30 13:30:00 102.1 F [facility] Heart Rate 2016-08-30 13:30:00 [facility] Diastolic (mm Hg) 2016-08-30 13:30:00 [facility] [place] Systolic (mm Hg) 2016-08-30 13:30:00 [facility] [place] BP Diastolic 2016-07-31 00:00:00 84 mm[Hg] [facility] Height 2016-07-31 00:00:00 71 [in_i] [facility] BMI (Body Mass Index) 2016-07-31 00:00:00 37.4 kg/m2 [facility] BP Systolic 2016-07-31 00:00:00 143 mm[Hg] [facility] Body Weight 2016-07-31 00:00:00 268 [lb_av] [facility] Weight 2016-05-31 13:15:00 [facility] Height 2016-05-31 13:15:00 [facility] Temperature Oral (F) 2016-05-31 13:15:00 97.9 F [facility] Heart Rate 2016-05-31 13:15:00 [facility] Weight 2016-05-03 13:15:00 [facility] Height 2016-05-03 13:15:00 [facility] Temperature Oral (F) 2016-05-03 13:15:00 97.3 F [facility] Heart Rate 2016-05-03 13:15:00 [facility] Diastolic (mm Hg) 2016-05-03 13:15:00 [facility] Systolic (mm Hg) 2016-05-03 13:15:00 [facility] [place] Weight 2016-02-01 13:15:00 [facility] Height 2016-02-01 13:15:00 [facility] Temperature Oral (F) 2016-02-01 13:15:00 98.4 F [facility] Heart Rate 2016-02-01 13:15:00 [facility] Diastolic (mm Hg) 2016-02-01 13:15:00 [facility] Systolic (mm Hg) 2016-02-01 13:15:00 [facility] Weight 2015-08-17 14:15:00 [facility] Height 2015-08-17 14:15:00 [facility] Temperature Oral (F) 2015-08-17 14:15:00 97.6 F [facility] Heart Rate 2015-08-17 14:15:00 [facility] Diastolic (mm Hg) 2015-08-17 14:15:00 [facility] Systolic (mm Hg) 2015-08-17 14:15:00 Sebastian kath[facility] [place] Weight 2015-05-26 14:00:00 [facility] Height 2015-05-26 14:00:00 [facility] Temperature Oral (F) 2015-05-26 14:00:00 98.1 F [facility] Heart Rate 2015-05-26 14:00:00 [facility] Diastolic (mm Hg) 2015-05-26 14:00:00 [facility] [place] Systolic (mm Hg) 2015-05-26 14:00:00 Sebastian kath[facility] [place] Weight 2014-07-07 13:00:00 [facility] Height 2014-07-07 13:00:00 [facility] Temperature Oral (F) 2014-07-07 13:00:00 98.8 F [facility] Heart Rate 2014-07-07 13:00:00 [facility] Diastolic (mm Hg) 2014-07-07 13:00:00 [facility] [place] Systolic (mm Hg) 2014-07-07 13:00:00 Sebastian kath[facility] Weight 2014-05-18 13:00:00 [facility] Height 2014-05-18 13:00:00 [facility] Temperature Oral (F) 2014-05-18 13:00:00 98.4 F [facility] Heart Rate 2014-05-18 13:00:00 [facility] Diastolic (mm Hg) 2014-05-18 13:00:00 [facility] Systolic (mm Hg) 2014-05-18 13:00:00 Sebastian Shah Procedures Procedure Date / Time Performed Performing Clinician Altagracia govea bone density 2020-04-14 00:00:00 [facility] Colonoscopy 2017-03-26 00:00:00 [facility] electrocardiogram 2016-07-31 00:00:00 [facility] Cancer Surgery 2013-11-04 00:00:00 [facility] Eye Surgery 2010-11-04 00:00:00 [facility] Cataract Surgery Complex 2009-11-04 00:00:00 [facility] Orthopedic Surgery 2008-11-04 00:00:00 [facility] Knee Surgery 2008-11-04 00:00:00 [facility] Colonoscopy with Biopsy [facility] Plan of Care Planned Activity Planned Date Details Comments Source Diagnostic Test Pending 2020-04-14 00:00:00 CBC w/ auto diff [code = CBC w/ auto diff] [facility] Diagnostic Test Pending 2020-04-14 00:00:00 uric acid, serum or plasma [code = uric acid, serum or plasma] [facility] Diagnostic Test Pending 2020-04-14 00:00:00 lipid panel, ser um [code = lipid panel, serum] [facility] Diagnostic Test Pending 2020-04-14 00:00:00 CMP, serum or pl asma [code = CMP, serum or plasma] [facility] Diagnostic Test Pending 2020-04-14 00:00:00 PSA, serum or pl asma [code = PSA, serum or plasma] [facility] Diagnostic Test Pending 2020-04-14 00:00:00 noninvasive colo rectal cancer DNA + occult blood screening, stool [code = noninvasive colorectal cancer DNA + occult blood screening, stool] [facility] Future Appointment 2020-07-19 09:30:00 [address]; [address], [place] [address] [facility] Instructions [facility] Encounters Start Date/Time End Date/Time Encounter Type Admission Type [facility] Facility Care Department Encounter ID Source 2020-06-27 00:00:00 2020-06-27 00:00:00 Aliya Fernandez: [address], [place] [address], Ph. [facility] Medical - VM_HOU_Care Management [id number] [facility] 2020-06-23 11:02:00 2020-06-23 11:02:00 Outpatient Ricky Tracey MD [place] [id number] Dale Tracey MD 2020-05-10 08:00:00 2020-06-08 23:59:00 Outpatient Meng Rodriguez [id number] 2020-05-05 08:15:00 2020-05-05 08:15:00 Outpatient Ricky Tracey MD PA [id number] Dale Tracey MD 2020-05-02 16:53:00 2020-05-02 16:53:00 [place] [id number] Dale Tracey MD 2020-04-25 12:47:00 2020-04-25 23:59:00 Outpatient Lasha Fofana [facility] [id number] 2020-04-25 00:00:00 2020-04-25 23:59:00 Outpatient MDA MDA [id number] MD Fried 2020-04-20 00:00:00 2020-04-20 00:00:00 Lasha Kaur MD: [address], [address], [place] [address], Ph. [facility] - VM_HOU_[place] ([facility]) [id number] [facility] 2020-04-14 00:00:00 2020-04-14 00:00:00 Lasha Kaur MD: [address], [address], [place] [address], Ph. [facility] - [facility] ([facility]) [id number] [facility] 2020-02-04 08:15:00 2020-02-04 08:15:00 Outpatient Ricky Tracey MD PA [id number] Dale Tracey MD 2020-01-11 00:00:00 2020-01-11 00:00:00 Lasha Kaur MD: [address] [place] [address], [place]. [facility] [id number] [facility] 2019-12-22 09:45:00 2019-12-22 09:45:00 Outpatient Ricky Tracey MD PA [id number] Dale Tracey MD 2019-12-02 14:27:00 2019-12-02 14:27:00 Outpatient MD JAYCEE Tian MD PA [id number] Dale Tracey MD 2019-10-12 00:00:00 2019-10-12 00:00:00 Lasha Kaur MD: [address] [place] [address], [place] [id number] [facility] 2019-08-25 08:12:00 2019-08-25 08:12:00 Outpatient MD JAYCEE Tian MD PA [id number] Dale Tracey MD 2019-08-17 00:00:00 2019-08-17 00:00:00 Vickey trotter MD: [address] [place] [address], Ph. [facility] [id number] [facility] 2019-05-19 08:45:00 2019-05-19 08:45:00 Outpatient Ricky Tracey MD PA [id number] Dale Tracey MD 2019-05-14 11:17:00 2019-05-14 11:17:00 Outpatient Ricky Tracey MD PA [id number] Dale Tracey MD 2019-04-10 00:00:00 2019-04-10 00:00:00 Vickey trotter MD: [address] [place] [address], Ph. [facility] [id number] [facility] 2019-04-09 13:02:00 2019-04-09 13:02:00 Outpatient Ricky Tracey MD [place] [id number] Dale Tracey MD 2019-03-31 00:00:00 2019-03-31 00:00:00 Meg Ward MD: [address] [address], Ph. [facility] [id number] [facility] 2019-02-17 13:44:00 2019-02-17 13:44:00 Outpatient Ricky Tracey MD PA [id number] Dale Tracey MD 2019-01-30 11:50:00 2019-01-30 11:50:00 Outpatient Ricky Tracey MD PA [id number] Dale Tracey MD 2019-01-12 00:00:00 2019-01-12 00:00:00 Vickey trotter MD: [address] [place] [address], Ph. [facility] [id number] [facility] 2019-01-06 16:16:00 2019-01-06 16:16:00 Outpatient Ricky Tracey MD PA [id number] EDDIE Tracey MD 2019-01-01 08:37:00 2019-01-01 08:37:00 Outpatient Ricky Tracey MD PA [id number] Dale Tracey MD 2019-01-01 08:00:00 2019-01-01 08:00:00 Outpatient Ricky CHAMPION [id number] Dale Tracey MD 2018-09-01 10:45:00 2018-09-01 10:45:00 Outpatient Ricky CHAMPION [id number] Dale Tracey MD 2018-08-20 08:34:00 2018-08-20 08:34:00 Outpatient Ricky CHAMPION [id number] Dale Tracey MD 2018-08-20 08:00:00 2018-08-20 08:00:00 Outpatient Ricky CHAMPION [id number] Dale Tracey MD 2018-04-28 16:25:00 2018-04-28 16:25:00 Outpatient Ricky Tracey MD PA [id number] Dale Tracey MD 2018-04-24 13:14:00 2018-04-24 23:59:00 Outpatient Vickey Sibley [facility] [id number] 2018-04-22 08:00:00 2018-04-22 08:00:00 Outpatient Ricky CHAMPION [id number] Dale Tracey MD 2018-04-21 11:26:00 2018-04-21 11:26:00 Outpatient Ricky CHAMPION [id number] Dale Tracey MD 2018-04-18 14:27:00 2018-04-18 14:27:00 Outpatient Ricky CHAMPION [id number] Dale Tracey MD 2018-03-20 13:47:00 2018-03-20 13:47:00 Outpatient Ricky CHAMPION [id number] Dale Tracey MD 2018-01-21 00:00:00 2018-01-21 00:00:00 Vickey trotter MD: [address] [place] [id number], Ph. [facility] [id number] [facility] 2017-12-23 10:45:00 2017-12-23 10:45:00 Outpatient Ricky CHAMPION [id number] Dale Tracey MD 2017-12-23 08:08:00 2017-12-23 08:08:00 Outpatient Ricky CHAMPION [id number] Dale Tracey MD 2017-12-20 16:54:00 2017-12-20 16:54:00 Outpatient Ricky CHAMPION [id number] Dale Tracey MD 2017-10-22 08:00:00 2017-10-22 08:00:00 Outpatient Ricky Tracey MD PA [id number] Dale Tracey MD 2017-10-16 15:09:00 2017-10-16 15:09:00 Outpatient Ricky Tracey MD PA [id number] Dale Tracey MD 2017-10-14 00:00:00 2017-10-14 00:00:00 Vickey trotter MD: [address] [place] [address], Ph. [facility] [id number] [facility] 2017-10-02 09:07:00 2017-10-02 09:07:00 Outpatient Ricky Tracey MD PA [id number] Dale Tracey MD 2017-09-19 10:22:00 2017-09-19 10:22:00 Outpatient Ricky CHAMPION [id number] Dale Tracey MD 2017-09-18 15:48:00 2017-09-18 15:48:00 Outpatient Ricky Tracey MD PA [id number] Dale Tracey MD 2017-09-02 10:00:00 2017-09-02 10:00:00 Outpatient Ricky CHAMPION [id number] Dale Tracey MD 2017-08-28 00:00:00 2017-08-28 00:00:00 Vickey trotter MD: [address] [place] [address], Ph. [facility] [id number] [facility] 2017-07-31 00:00:00 2017-07-31 00:00:00 Vickey trotter MD: [address] [place] [address], Ph. [facility] [id number] [facility] 2017-06-03 13:15:00 2017-06-03 13:15:00 Outpatient Ricky Tracey MD PA [id number] Dale Tracey MD 2017-05-22 15:12:00 2017-05-22 15:12:00 Outpatient Ricky Tracey MD PA [id number] Dale Tracey MD 2017-05-03 09:18:00 2017-05-03 09:18:00 Outpatient Ricky Tracey MD PA [id number] Dale Tracey MD 2017-03-27 16:13:00 2017-03-27 16:13:00 Outpatient Ricky Tracey MD PA [id number] Dale Tracey MD 2017-03-27 11:18:00 2017-03-27 11:18:00 Outpatient Ricky Tracey MD PA [id number] Dale Tracey MD 2017-02-28 08:15:00 2017-02-28 08:15:00 Outpatient Ricky Tracey MD PA [id number] Dale Tracey MD 2017-01-28 00:00:00 2017-01-28 00:00:00 Vickey trotter MD: [address] [place] [address], Ph. [facility] [id number] [facility] 2017-01-24 10:01:00 2017-01-24 10:01:00 Outpatient Ricky Tracey MD PA [id number] Dale Tracey MD 2017-01-22 10:39:00 2017-01-22 10:39:00 Outpatient Ricky Tracey MD PA [id number] Dale Tracey MD 2016-11-30 08:15:00 2016-11-30 08:15:00 Outpatient MD Ricky Tian MD [id number] Dale Tracey MD 2016-11-26 00:00:00 2016-11-26 00:00:00 Vickey trotter MD: [address] [place] [address], Ph. [facility] [id number] [facility] 2016-11-22 00:00:00 2016-11-22 00:00:00 Vickey trotter MD: [address] [place] [address], Ph. [facility] [id number] [facility] 2016-10-16 09:40:00 2016-10-16 09:40:00 Outpatient MD Ricky Tian MD [id number] EDDIE Tracey MD 2016-09-20 15:03:00 2016-09-20 15:03:00 Outpatient MD Ricky Tian MD [id number] Dale Tracey MD 2016-09-05 00:00:00 2016-09-05 00:00:00 Vickey trotter MD: [address] [place] [address], Ph. [facility] [id number] [facility] 2016-08-30 08:30:00 2016-08-30 08:30:00 Outpatient MD Ricky Tian MD [id number] Dale Tracey MD 2016-07-31 00:00:00 2016-07-31 00:00:00 Vickey trotter MD: [address] [place] [address], Ph. [facility] [id number] [facility] 2016-07-11 09:15:00 2016-07-11 09:15:00 Outpatient MD Ricky Tian MD [id number] Dale Tracey MD 2016 10:29:00 2016 10:29:00 Outpatient MD Ricky Tian MD [id number] EDDIE Tracey MD 2016-06-27 14:35:00 2016-06-27 14:35:00 Outpatient MD Ricky Tian MD [id number] EDDIE Tracey MD 2016-05-31 08:15:00 2016-05-31 08:15:00 Outpatient MD Ricky Tian MD [id number] EDDIE Tracey MD 2016-05-28 10:58:00 2016-05-28 10:58:00 Outpatient MD Ricky Tian MD [id number] EDDIE Tracey MD 2016-05-14 16:57:00 2016-05-14 16:57:00 Outpatient MD Ricky Tian MD [id number] EDDIE Tracey MD 2016-05-03 08:15:00 2016-05-03 08:15:00 Outpatient MD Ricky Tian MD [id number] EDDIE Tracey MD 2016-04-11 08:53:00 2016-04-11 08:53:00 Outpatient MD Ricky Tian MD [id number] Dale Tracey MD 2016-04-04 15:52:00 2016-04-04 15:52:00 Outpatient MD Ricky Tian MD [id number] Dale Tracey MD 2016-03-01 12:48:00 2016-03-01 12:48:00 Outpatient MD Ricky Tian MD [id number] Dale Tracey MD 2016-02-28 08:27:00 2016-02-28 08:27:00 Outpatient MD Ricky Tian MD [id number] Dale Tracey MD 2016-02-24 15:59:00 2016-02-24 15:59:00 Outpatient MD Ricky Tian MD [id number] Dale Tracey MD 2016-02-01 08:15:00 2016-02-01 08:15:00 Outpatient MD Ricky Tian MD [id number] Dale Tracey MD 2016-01-30 17:30:00 2016-01-30 17:30:00 Outpatient MD Ricky Tian MD [id number] Dale Tracey MD 2016-01-30 16:20:00 2016-01-30 16:20:00 Outpatient MD Ricky Tian MD [id number] EDDIE Tracey MD 2015-11-23 14:50:00 2015-11-23 14:50:00 Outpatient MD Ricky Tian MD [id number] Dale Tracey MD 2015-11-16 10:39:00 2015-11-16 10:39:00 Outpatient MD Ricky Tian MD [id number] EDDIE Tracey MD 2015-11-08 09:51:00 2015-11-08 09:51:00 Outpatient MD Ricky Tian MD [id number] Dale Tracey MD 2015-11-01 10:17:00 2015-11-01 10:17:00 Outpatient MD Ricky Tian MD [id number] Dale Tracey MD 2015-09-27 10:53:00 2015-09-27 10:53:00 Outpatient MD Ricky Tian MD [id number] Dale Tracey MD 2015-09-15 12:59:00 2015-09-15 12:59:00 Outpatient MD Ricky Tian MD [id number] Dale Tracey MD 2015-08-17 08:15:00 2015-08-17 08:15:00 Outpatient MD Ricky Tian MD [id number] Dale Tracey MD 2015-05-27 16:24:00 2015-05-27 16:24:00 Outpatient MD Ricky Tian MD [id number] EDDIE Tracey MD 2015-05-27 12:44:00 2015-05-27 12:44:00 Outpatient MD Ricky Tian MD [id number] Dale Tracey MD 2015-05-26 09:23:00 2015-05-26 09:23:00 Outpatient MD Ricky Tian MD [id number] Dale Tracey MD 2015-05-26 09:00:00 2015-05-26 09:00:00 Outpatient MD Ricky Tian MD [id number] EDDIE Tracey MD 2015-02-25 15:23:00 2015-02-25 23:59:00 Outpatient William Tracey [facility] [id number] 2014-10-14 15:44:00 2014-10-14 15:44:00 Outpatient MD Ricky Tian MD [id number] Dale Tracey MD 2014-08-23 17:55:00 2014-08-23 17:55:00 Outpatient MD Ricky Tian MD [id number] Dale Tracey MD 2014-08-10 09:05:00 2014-08-10 09:05:00 Outpatient MD Ricky Tian MD [id number] Dale Tracey MD 2014-07-29 09:25:00 2014-07-29 09:25:00 Outpatient MD Ricky Tian MD [id number] Dale Tracey MD 2014-07-23 10:27:00 2014-07-23 10:27:00 Outpatient MD Ricky Tian MD [id number] Dale Tracey MD 2014-07-07 08:00:00 2014-07-07 08:00:00 Outpatient MD Ricky Tian MD [id number] Dale Tracey MD 2014-05-27 16:04:00 2014-05-27 16:04:00 Outpatient MD Ricky Tian MD [id number] Dale Tracey MD 2014-05-26 10:58:00 2014-05-26 10:58:00 Outpatient MD Ricky Tian MD [id number] Dale Tracey MD 2014-05-20 17:07:00 2014-05-20 17:07:00 Outpatient MD Ricky Tian MD [id number] Dale Tracey MD 2014-05-18 09:51:00 2014-05-18 09:51:00 Outpatient MD Ricky Tian MD [id number] Dale Tracey MD 2014-05-18 08:00:00 2014-05-18 08:00:00 Outpatient MD Ricky Tian MD [id number] Dale Tracey MD Results Test Description Test Time Test Comments Results Result Comments Source CT CHEST W 2020-07-16 13:31:[address] [facility] [place] [address] Patient Name: HANNY BOWIE MR #: [id number] : 1945 Age/Sex: 75/M Req #: [id number] Adm Physician: Ordered by: YULY SOLO MD Report #: [id number] Location: ER Room/Bed: Procedure: [id number] CT/CT CHEST W Exam Date: 07/16/20 Exam Time: 1300 REPORT STATUS: Signed EXAM: CT Chest WITH contrast 07/16/2020 1:00 PM INDICATION: Dyspnea clinically concerning for pulmonary embolism. COMPARISON: Same day chest radiograph. TECHNIQUE: Chest was scanned utilizing a multidetector helical scanner from the lung apex through the level of the adrenal glands with administration of IV contrast. Coronal and sagittal reformations were obtained. Routine protocol was performed. IV CONTRAST: 100 mL of Omnipaque 300 COMPLICATIONS: None RADIATION DOSE: Total DLP: 567.98 mGy*cm Estimated effective dose: (DLP x 0.014 x size factor) mSv CTDIvol has been reviewed. It is below the limits set by the Radiation Protocol Committee (RPC). Dose modulation, iterative reconstruction, and/or weight based adjustment of the mA/kV was utilized to reduce the radiation dose to as low as reasonably achievable. FINDINGS: LINES/ TUBES: None. VASCULAR: There are no filling defects in the pulmonary arteries to the segmental level. The pulmonary trunk has normal caliber measuring 2.7 cm. The ascending and descending aorta have normal enhancement and caliber measuring 3.5 cm and 2.8 cm, respectively. LUNGS AND AIRWAYS: The central airways are patent and the trachea is midline. There is multifocal patchy groundglass airspace opacities in the left upper and lower lobes. Right lung is relatively clear. There is mild right apical paraseptal emphysema. PLEURA: The pleural spaces are clear. HEART AND MEDIASTINUM: The thyroid gland is normal. No mediastinal, hilar or axillary lymphadenopathy. The heart is mildly enlarged with atherosclerotic calcification of the coronary vessels. There is no pericardial effusion. UPPER ABDOMEN: Unremarkable. BONES: The visualized bony thorax is within normal limits. SOFT TISSUES: Unremarkable. IMPRESSION: 1. No evidence of pulmonary embolism to the segmental levels. 2. Multifocal patchy airspace groundglass opacities in the left upper and lower lobes compatible with multifocal pneumonia. 3. Mild cardiomegaly with atherosclerotic calcification of the coronary vessels. Signed by: Olga Adams MD on 07/16/2020 1:38 PM Dictated By: OLGA ADAMS MD 37 Transcribed By: JOYCE on 07/16/201337 COPY TO: YULY SOLO MD CHEST SINGLE (PORTABLE) 2020-07-16 11:55:00 [place] [address] Patient Name: HANNY BOWIE MR #: [id number] : 1945 Age/Sex: 75/M Req #: [id number] Adm Physician: Ordered by: YULY SOLO MD Report #: [id number] Location: ER Room/Bed: Procedure: [id number] DX/CHEST SINGLE (PORTABLE) Exam Date: 07/16/20 Exam Time: 1120 REPORT STATUS: Signed EXAMINATION: CHEST SINGLE (PORTABLE) INDICATION: Fever. COMPARISON: None FINDINGS: TUBES and LINES: None. LUNGS: There is interstitial and patchy airspace opacities at bilateral lung bases. PLEURA: No pleural e ffusion or pneumothorax. HEART AND MEDIASTINUM: The cardiomediastinal silhouette is unremarkable. BONES AND SOFT TISSUES: No acute osseous lesion. Soft tissues are unremarkable. UPPER ABDOMEN: No free air under the diaphragm. IMPRESSION: Interstitial and patchy airspace opacities at bilateral lung bases compatible with multifocal pneumonia. Signed by: Olga Adams MD on 07/16/2020 11:56 AM Dictated By: OLGA ADAMS MD [id number] Transcribed By: JOYCE on 07/16/20 1156 COPY TO: YULY SOLO MD CBC W Auto Differential panel - Blood [...] (test code = baso#) 0.03 x10*3/?L 0.01-0.08 [facility] Auto Differential panel - [id number] 15:38:00 * Test Item Value Reference Range [...] (test code = baso#) 0.03 x10*3/?L 0.01-0.08 [facility] Auto Differential panel - [id number] 15:38:00 * Test Item Value Reference Range [...] (test code = baso#) 0.03 x10*3/?L 0.01-0.08 [facility] - Serum or Plasma [...] (test code = anion gap) 5 calc [facility] panel - Serum or [id number] 15:22:00* Test Item Value Reference Range Interpretation [...] est code = 2089-1) 15 mg/dL <130 [facility], serum or [id number] 15:22:00* Test Item Value Reference Range Interpretation Comments PSA, total (test code = PSA, total) 0.71 NG/mL <4.00 [facility] [Mass/volume] in Serum or [id number] 15:22:00 * Test Item Value Reference Range Interpretation Comments uric acid (test code = uric acid) 4.6 mg/dL 3.5-7.2 [facility] 1999 panel - Serum or Plasma [...] (test code = anion gap) 5 calc [facility] panel - Serum or [id number] 15:22:00* Test Item Value Reference Range Interpretation [...] est code = 2089-1) 15 mg/dL <130 [facility], serum or [id number] 15:22:00* Test Item Value Reference Range Interpretation Comments PSA, total (test code = PSA, total) 0.71 NG/mL <4.00 [facility] [Mass/volume] in Serum or [id number] 15:22:00 * Test Item Value Reference Range Interpretation Comments uric acid (test code = uric acid) 4.6 mg/dL 3.5-7.2 [facility] 2000 panel - Serum or Plasma [...] (test code = anion gap) 5 calc [facility] 1995 panel - Serum or [id number] 15:22:00* Test Item Value Reference Range Interpretation [...] est code = 2089-1) 15 mg/dL <130 [facility], [facility] or [id number] 15:22:00* Test Item Value Reference Range Interpretation Comments PSA, total (test code = PSA, total) 0.71 NG/mL <4.00 [facility] [Mass/volume] in Serum or [id number] 15:22:00 * Test Item Value Reference Range Interpretation Comments uric acid (test code = uric acid) 4.6 mg/dL 3.5-7.2 [facility]Prostate specific Ag [Mass/volume] in Serum or Plasma 2017-10-16 07:54:00* Test Item Value Reference Range Interpretation Comments PSA, total (test code = PSA, total) 0.53 NG/mL <4.00 [facility] 1999 panel - Serum or Plasma 2017-08-01 14:01:00* [...] non- (test code = eGFR non-chelsy n south african) 55 mL/min/1.73m2 >60 L total bilirubin (test [...] (test code = anion gap) 12 calc [facility] 1995 panel - Serum or [id number] 10:52:00* Test Item Value Reference Range Interpretation [...] code = LDL calc.) 41 mg/dL 0-130 [facility] [Mass/volume] in Serum or [id number] 10:52:00 * Test Item Value Reference Range Interpretation Comments uric acid (test code = uric acid) 4.9 mg/dL 3.5-7.2 [facility] 1999 panel - Serum or Plasma 2017-01-29 07:23:00* Test Item Value Reference Range Interpretation Comments glucose (test code = glucose) 102 mg/dL 65-99 H urea nitrogen (BUN) (test code = urea nitrogen (BUN)) 19 mg/dL 7-25 creatinine (test code = creatinine) 1.23 mg/dL 0.70-1.25 eGFR non-afr. south african (test code = eGFR non-afr. south african) 60 mL/min/1.73m2 > or = 60 eGFR [...] (test code = ALT) 43 U/L 9-46 [facility] 1996 panel - Serum or [id number] 07:23:00* Test Item Value Reference Range Interpretation [...] non HDL cholesterol) 92 mg/dL (mario c) [facility] Hospita[id number] 00:00:00Rate & RhythmQrsPR IntervalQRS DurationQT IntervalVillage Family Practice
--- NOTE | 2020-07-16 15:14 | NUR ---
called ms garay for tele box
[2020-07-16 16:00] VITALS: BP 130/64
[2020-07-16 16:10] VITALS: BP 130/64
[2020-07-16] MEDS ORDERED: IOPAMIDOL 370 MG/ML 200 ML INFUS..BTL INJ ONE (16:51)
[2020-07-16] MEDS ORDERED: SODIUM CHLORIDE 0.9% 50ML 50 ML ONE (16:51)
[2020-07-16] MEDS ORDERED: POTASSIUM CHLORIDE 20 MEQ TAB CR PO STA (17:20)
[2020-07-16] MEDS ORDERED: HYDROCODONE/APAP 10MG-325MG TAB PO PRN (17:30)
--- NOTE | 2020-07-16 17:52 | Consultation ---
DATE OF CONSULTATION: Pulmonary Consultation REASON FOR CONSULT: Pneumonia. HISTORY OF PRESENT ILLNESS: Mr. Ibrahim is a 75-year-old male, who presented to the emergency room with complaints of shortness of breath and coughing. The patient reports that he has been a smoker for 30 years, quit smoking 25 years ago. He reports that he was feeling weak, but nonfocal. The patient is having axillary temperature of 101 this morning and he took gram of Tylenol. In the emergency room, the patient was given IV cefepime, vancomycin and 1 L of IV fluids, and the patient was admitted to the floor. His white cell count was 17,000, hemoglobin of 12.0, and platelets 219. Chemistry; sodium 141, potassium 3.2, chloride 107, and creatinine was 1.34. His lactic acid on admission was 3.4, went down to 3.1. The patient underwent a CTA of the chest, which showed multilobar pneumonia, did not show any PE. REVIEW OF SYSTEMS: GENERAL: Fever and chills. HEAD: Denies any head trauma. ENT: Denies any earache. CVS: Denies any chest pain. RESPIRATORY: Shortness of breath. The rest of the review of systems are negative except as in HPI. PAST MEDICAL HISTORY: Hypertension, hyperlipidemia, and obesity. FAMILY AND SOCIAL HISTORY: He does not smoke. Does not drink. Ex-smoker, smoked for 30 years. History of chronic kidney disease. PHYSICAL EXAMINATION: VITAL SIGNS: Temperature 98.3, pulse of 80, blood pressure 130/64, respiratory rate of 18, and O2 saturation 98% on 2 L. HEENT: Head is atraumatic and normocephalic. NECK: Supple. CHEST: Crackles bilaterally. HEART: S1 and S2 audible. ABDOMEN: Soft and nontender. EXTREMITIES: Pedal edema. NEUROLOGIC: Awake and alert. LABORATORY DATA: White count of 17,000, hemoglobin 12.0, and platelets 219. Chemistry; creatinine is 1.34 and potassium 3.2. Lactic acid 3.4. CT chest reviewed, showing multilobar pneumonia. ASSESSMENT: Mr. Ibrahim is a 75-year-old male with multilobar pneumonia. COVID-19 test was negative. PLAN: I will start the patient on IV cefepime and IV Zosyn. Oxygen as needed to keep the O2 saturation more than or equal to 92%. We will hold off on the Decadron as COVID-19 testing is negative. Start the patient on nebulizer treatment. Oxygen as needed to keep the O2 saturation more than or equal to 92%. Mild AL. We will start the patient on IV fluids. Thank you for this consult. MD WAYNE Ann/ANTHONY /[id number]
--- NOTE | 2020-07-16 18:00 | NUR ---
Pt received from ER at 1600. Pt is aox3 and able to verbalize needs. Denies any pain at this time. Breaths are even and unlabored on room air. Pt has two IV to bilateral AC and both are patent. Skin is intact. Notified attending of pt arrival on to floor and received new orders.
[2020-07-16] MEDS ORDERED: ACETAMINOPHEN 325 MG TAB PO PRN (19:15)
--- NOTE | 2020-07-16 19:15 | NUR ---
RECEIVED THE PT IN REPORT.AAOX3.AMBULATES.WHEEZING NOTED.NO PAIN VOICED.IV FLUID STARTED TO RAC#20.BED LOCKED AND IN LOWEST POSITION.PHONE AND CALL LIGHT WITHIN REACH.INSTRUCTED TO CALL FOR ASSISTANCE NEEDED.
[2020-07-16] MEDS: BUDESONIDE 0.25 MG/2 ML NEB NEB SCH (19:40)
[2020-07-16] MEDS: ALBUTEROL/IPRATROPIUM 3 ML NEB NEB SCH (19:40)
--- NOTE | 2020-07-16 19:58 | NUR ---
GETTING BREATHING TREATMENT.STABEL CONDITION.
[2020-07-16 20:00] VITALS: BP_SYST 115; BP_SYST 133; BP_DIAS 49; BP_DIAS 71
[2020-07-16] MEDS: SODIUM CHLORIDE 0.9% 1000ML 1,000 ML IV SCH (20:00)
[2020-07-16 20:37] VITALS: BP 133/49
[2020-07-16] MEDS: PREGABALIN 75 MG CAP PO SCH (20:44)
[2020-07-16] MEDS: SIMVASTATIN 40 MG TAB PO SCH (20:44)
--- NOTE | 2020-07-16 20:44 | NUR ---
BLOOD JIMMY AND SENT OT THE LAB FOR LACTIC ACID.PT TOLERATED WELL
[2020-07-16] MEDS: CEFEPIME 1GM/NS 0.9% 50 ML 50 ML IV SCH (21:06)
--- NOTE | 2020-07-16 21:11 | NUR ---
Lab critical lactic acid 3.9 notified to .ordered to continue same medications and ordered for lactic acid in the morning..
[2020-07-16] MEDS: PIPER-TAZ 3.375 GM 50 ML IV SCH (21:46)
[2020-07-16] MEDS ORDERED: CEFEPIME HCL 1 GM VIAL IV SCH (22:00)
[2020-07-17] VITALS (9 sets, daily range): BP systolic 112–157; BP diastolic 42–76
--- NOTE | 2020-07-17 01:00 | NUR ---
Bp checked and noted 130/61 mm of hg.
[2020-07-17] MEDS: ALBUTEROL/IPRATROPIUM 3 ML NEB NEB SCH ×4 (03:20→19:40)
[2020-07-17] MEDS: SODIUM CHLORIDE 0.9% 1000ML 1,000 ML IV SCH ×3 (04:29→21:12)
[2020-07-17] MEDS: CEFEPIME 1GM/NS 0.9% 50 ML 50 ML IV SCH ×3 (05:09→21:02)
[2020-07-17] MEDS: PIPER-TAZ 3.375 GM 50 ML IV SCH ×3 (05:56→22:00)
[2020-07-17 06:23] LABS: BASOPHILS # (AUTO) 0.1 (0.0-0.1); BASOPHILS % 0.3 % (0.0-1.0); EOSINOPHILS # (AUTO) 0.1 (0.0-0.4); EOSINOPHILS % 0.4 % (0.0-6.0); HEMOGLOBIN 9.3 g/dL (14.0-18.0); LYMPHOCYTES # (AUTO) 3.1 (1.0-3.2); LYMPHOCYTES % 20.4 % (18.0-39.1); MEAN CORPUSCULAR HEMOGLOBIN 31.4 pg (28-32); MEAN CORPUSCULAR HGB CONC 32.1 g/dL (31-35); MONOCYTES # (AUTO) 0.9 (0.2-0.8); NEUTROPHILS # (AUTO) 10.7 (2.1-6.9); NEUTROPHILS % 71.4 % (38.7-80.0); PLATELET COUNT 143 x10e3/uL (140-360); RED BLOOD COUNT 2.96 x10e6/uL (4.3-5.7); RED CELL DISTRIBUTION WIDTH 15.2 % (11.7-14.4)
[2020-07-17 06:58] LABS: ANION GAP 15.8 mmol/L (8-16); BLOOD UREA NITROGEN 17 mg/dL (7-26); BUN/CREATININE RATIO 15 (6-25); CALCIUM 7.8 mg/dL (8.4-10.2); CARBON DIOXIDE 18 mmol/L (22-29); CHLORIDE 109 mmol/L (98-107); CREATININE, SERUM 1.15 mg/dL (0.72-1.25); EST GLOMERULAR FILTRATION RATE > 60 ML/MIN (60-); GLUCOSE 124 mg/dL (74-118); POTASSIUM 3.8 mmol/L (3.5-5.1); SODIUM 139 mmol/L (136-145)
--- NOTE | 2020-07-17 07:05 | NUR ---
BED SIDE SHIFT REPORT GIVEN TO ONCOMING RN.STABLE CONDITION.
[2020-07-17] MEDS: PREGABALIN 75 MG CAP PO SCH ×3 (08:42→20:34)
[2020-07-17] MEDS: SULFASALAZINE 500 MG TAB PO SCH ×2 (08:42→16:40)
[2020-07-17] MEDS: OMEPRAZOLE 20 MG CAP PO SCH (08:42)
[2020-07-17] MEDS: OMEGA 3 POLYUNSAT FATTY ACIDS 1000 MG SOFTGEL PO SCH ×2 (08:42→16:40)
[2020-07-17] MEDS: LISINOPRIL 20 MG TAB PO SCH (08:42)
[2020-07-17] MEDS: CHOLECALCIFEROL 1,000 UNIT TAB PO SCH (08:43)
[2020-07-17] MEDS: ALLOPURINOL 300 MG TAB PO SCH (08:49)
[2020-07-17] MEDS: ZINC SULFATE 50 MG CAP PO SCH (08:51)
[2020-07-17] MEDS: BUDESONIDE 0.25 MG/2 ML NEB NEB SCH ×2 (09:04→19:40)
[2020-07-17] MEDS ORDERED: AZITHROMYCIN 500MG/NS 250 ML 250 ML IV SCH (11:00)
--- NOTE | 2020-07-17 14:25 | Diagnostic Imaging Report ---
EXAMINATION: CHEST SINGLE (PORTABLE) INDICATION: Follow-up pneumonia. COMPARISON: Chest x-ray and CT on 07/16/2020. FINDINGS: TUBES and LINES: None. LUNGS: Normal lung volumes. No interval change in interstitial and airspace opacity in the left upper and lower lobes compatible with multifocal pneumonia. PLEURA: No pleural effusion or pneumothorax. HEART AND MEDIASTINUM: The cardiomediastinal silhouette is unchanged. BONES AND SOFT TISSUES: No acute osseous lesion. Soft tissues are unchanged. UPPER ABDOMEN: No free air under the diaphragm. IMPRESSION: No interval change in interstitial and airspace opacities in the left upper and lower lobes compatible with multifocal pneumonia. Signed by: Nika Savage MD on 07/17/2020 2:22 PM
--- NOTE | 2020-07-17 19:29 | NUR ---
Received the pt in report.aaox3.no resp.distress.no pain voiced.iv fluids running.bed locked and in lowest position.mario light within reach.pt denied any needs.lyeing in the bed.
[2020-07-17] MEDS: SIMVASTATIN 40 MG TAB PO SCH (20:34)
[2020-07-18] VITALS: BP 158/72
[2020-07-18] MEDS: ALBUTEROL/IPRATROPIUM 3 ML NEB NEB SCH ×2 (00:55→07:35)
[2020-07-18 04:00] VITALS: BP_SYST 155; BP_SYST 157; BP_DIAS 61; BP_DIAS 65
[2020-07-18] MEDS: CEFEPIME 1GM/NS 0.9% 50 ML 50 ML IV SCH (05:01)
[2020-07-18] MEDS: PIPER-TAZ 3.375 GM 50 ML IV SCH (05:46)
--- NOTE | 2020-07-18 06:45 | NUR ---
SBAR BEDSIDE REPORT RECEIVED FROM BROOKS RODRIGUEZ, PM SHIFT. PATIENT FOUND RESTING IN BED IN NO ACUTE DISTRESS. HOB ELEVATED 30 DEGREES. PT AAOX4 AND DENIES ANY FURTHER NEEDS. PT WAS EDUCATED ON FALL RISK PRECAUTIONS AND VERBALIZED UNDERSTANDING. CALL LIGHT AND BELONGINGS PLACED NEARBY. WILL CONTINUE TO MONITOR.
[2020-07-18 07:07] LABS: BASOPHILS % 0.4 % (0.0-1.0); EOSINOPHILS # (AUTO) 0.1 (0.0-0.4); HEMATOCRIT 28.6 % (38.2-49.6); HEMOGLOBIN 9.2 g/dL (14.0-18.0); LYMPHOCYTES # (AUTO) 2.3 (1.0-3.2); LYMPHOCYTES % 20.7 % (18.0-39.1); MEAN CORPUSCULAR HEMOGLOBIN 31.7 pg (28-32); MEAN CORPUSCULAR HGB CONC 32.2 g/dL (31-35); MEAN CORPUSCULAR VOLUME 98.6 fL (81-99); MONOCYTES # (AUTO) 0.7 (0.2-0.8); MONOCYTES % 6.3 % (4.4-11.3); NEUTROPHILS # (AUTO) 7.9 (2.1-6.9); PLATELET COUNT 146 x10e3/uL (140-360); RED CELL DISTRIBUTION WIDTH 15.3 % (11.7-14.4)
[2020-07-18 07:21] LABS: ANION GAP 11.8 mmol/L (8-16); BLOOD UREA NITROGEN 12 mg/dL (7-26); BUN/CREATININE RATIO 12 (6-25); CALCIUM 8.2 mg/dL (8.4-10.2); CARBON DIOXIDE 21 mmol/L (22-29); CHLORIDE 111 mmol/L (98-107); CREATININE, SERUM 1.02 mg/dL (0.72-1.25); EST GLOMERULAR FILTRATION RATE > 60 ML/MIN (60-); GLUCOSE 109 mg/dL (74-118); POTASSIUM 3.8 mmol/L (3.5-5.1); SODIUM 140 mmol/L (136-145)
[2020-07-18 07:27] VITALS: BP 155/71
[2020-07-18] MEDS: BUDESONIDE 0.25 MG/2 ML NEB NEB SCH (07:35)
[2020-07-18 07:37] LABS: % IRON SATURATION 5 % (15-50); IRON 15 ug/dL (65-175); TOTAL IRON BINDING CAPACITY 283 ug/dL (261-478); TRANSFERRIN 202 mg/dL (174-364)
--- NOTE | 2020-07-18 08:25 | NUR ---
DR. WISDOM WAS MADE AWARE OF WBC=11.1. DISCHARGE ORDERS RECEIVED PER .
[2020-07-18] MEDS: PREGABALIN 75 MG CAP PO SCH (08:39)
[2020-07-18] MEDS: SULFASALAZINE 500 MG TAB PO SCH (08:39)
[2020-07-18] MEDS: OMEGA 3 POLYUNSAT FATTY ACIDS 1000 MG SOFTGEL PO SCH (08:39)
[2020-07-18] MEDS: OMEPRAZOLE 20 MG CAP PO SCH (08:39)
[2020-07-18] MEDS: LISINOPRIL 20 MG TAB PO SCH (08:39)
[2020-07-18] MEDS: SODIUM CHLORIDE 0.9% 1000ML 1,000 ML IV SCH (08:40)
[2020-07-18] MEDS: ALLOPURINOL 300 MG TAB PO SCH (08:40)
[2020-07-18] MEDS: CHOLECALCIFEROL 1,000 UNIT TAB PO SCH (08:40)
[2020-07-18] MEDS: ZINC SULFATE 50 MG CAP PO SCH (08:40)
--- NOTE | 2020-07-18 10:50 | NUR ---
PATIENT DISCHARGED VIA PRIVATE VEHICLE. PERIPHERAL IV WAS DISCONTINUED;CATHETER INTACT WITHOUT RESISTANCE. DRY DRESSING APPLIED. PATIENT RECEIVED DISCHARGE SUMMARY, MEDICATION LIST, EDUCATION, AND WRITTEN PRESCRIPTION. PT VERBALIZED UNDERSTANDING.
--- NOTE | 2020-07-23 08:44 | Discharge Summary ---
DISCHARGE DIAGNOSIS: Sepsis secondary to multilobar pneumonia. HISTORY OF PRESENT ILLNESS AND HOSPITAL COURSE: See hospital chart for full details. The patient is a gentleman, who presented with fever, chills, congestion, and cough, where he was noticed to have multilobar pneumonia and evidence of sepsis on the blood test, so he was brought in, placed on IV fluids, IV antibiotics. Follow up with a code sepsis protocol where he made a significant improvement each day where he did not require any type of nasal cannula for oxygen at the time of discharge, felt great. He is ambulating well, eating well, and so, therefore, he was discharged home with p.oMarta Moreno with instructions to follow up with his PCP in 1 to 2 weeks. Please see hospital chart for full details. MD SIMON Garrett/ANTHONY /[id number]
== END 2020-07-18 10:50 | disposition home or self-care (01) | DRG 871 ==
LOC: ER 11:20 → ERHOLD 14:36 → MED/SURG2 16:03
PROVIDERS: ADMIT Internal Medicine; ATTEND Internal Medicine
DX: A41.9 Sepsis, unspecified organism (principal); J18.1 Lobar pneumonia, unspecified organism; N17.9 Acute kidney failure, unspecified; K21.9 Gastro-esophageal reflux disease without esophagitis; M10.9 Gout, unspecified; E78.00 Pure hypercholesterolemia, unspecified; E66.01 Morbid (severe) obesity due to excess calories; I12.9 Hypertensive chronic kidney disease with stage 1 through stage 4 chronic kidney disease, or unspecified chronic kidney disease; N18.3 Chronic kidney disease, stage 3 (moderate); Z88.8 Allergy status to other drugs, medicaments and biological substances; Z82.49 Family history of ischemic heart disease and other diseases of the circulatory system; Z11.59 Encounter for screening for other viral diseases; E78.5 Hyperlipidemia, unspecified; Z87.891 Personal history of nicotine dependence; D64.9 Anemia, unspecified; D69.6 Thrombocytopenia, unspecified; Z68.36 Body mass index [BMI] 36.0-36.9, adult
CPT/HCPCS: 36415; 71045; 71260; 80048; 80053; 81001; 83540; 83605; 83735; 83880; 84466; 84484; 85025; 85379; 87040; 93005; 94640; 99284; J0456; J0692; J2543; J3370; J7030; J7121; Q9967; U0002

== ENCOUNTER → 2020-09-26 | Outpatient (CLI) | payer MEDICARE ==
[~2020-09-26] MED LIST changes: +CENTRUM SILVER1 EAC3; +LYRICA75 MG PO; +NORCO 10-325 T1 EACH PO; +OMEGA-31000 MG PO; +SIMVASTATIN40 MG PO; +SULFASALAZINE500 MG PO
--- NOTE | 2020-09-26 10:17 | Diagnostic Imaging Report ---
EXAM: CT CHEST WITHOUT CONTRAST CLINICAL INDICATION: Follow-up pneumonia TECHNIQUE: CT chest was performed, without IV contrast, as per department protocol. Axial, sagittal, and coronal reconstructions were obtained. IV CONTRAST: Not administered, limiting sensitivity of this exam for evaluation of mediastinum/emmanuelle, vascular structures, and solid organs. RADIATION DOSE REDUCTION: This exam was performed according to the departmental dose-optimization program which includes automated exposure control, adjustment of the mA and/or kV according to patient size and/or use of iterative reconstruction technique. COMPARISON: 07/16/2020 FINDINGS: LOWER NECK: No pathologic process in imaged portion of lower neck. PULMONARY PARENCHYMA AND AIRWAYS: Paraseptal emphysema, more pronounced in the right upper lung. There is asymmetrically increased opacity of the right lung upper zone compared to the left side. This could represent compressed lung parenchyma because of the emphysema related air trapping. There are small areas of hazy groundglass opacities in both lungs especially in the left lingular lobe peripherally, right middle lobe peripherally, superior segment of the left lobe, right lower lobe, along with minor areas of cystic changes in the right middle lobe anteriorly with surrounding groundglass opacity. There are no large areas of interstitial disease or airspace disease otherwise. There is minimal dependent atelectasis on both sides. The airways are unremarkable. This is a significant improvement compared with the previous CT. MEDIASTINUM AND EMMANUELLE: No pathologic process. HEART AND PERICARDIUM: Heart normal size. Coronary artery calcification. No pericardial fluid or thickening. THORACIC VESSELS: Minimal atherosclerosis of the thoracic aorta. PLEURAL SPACES: Minimal pleural thickening bilaterally. CHEST WALL AND AXILLA: No pathologic process. UPPER ABDOMEN: No pathologic process in imaged portion of upper abdomen. MUSCULOSKELETAL: Degenerative disc disease changes. ADDITIONAL FINDINGS: None. IMPRESSION: Significant improvement to near resolution of pneumonia on this exam. Standardized Report: [id number]. Signed by: Roosevelt Moore MD on 09/26/2020 10:14 AM
== END ==
LOC: CT 07:54
PROVIDERS: ATTEND Internal Medicine
DX: Z09 Encounter for follow-up examination after completed treatment for conditions other than malignant neoplasm (principal); J18.9 Pneumonia, unspecified organism
CPT/HCPCS: 71250

== ENCOUNTER 2024-02-29 15:57 | Emergency (ER) | payer MEDICARE ==
[~2024-02-29] VITALS: Ht 180.3 cm; Wt 104.3 kg
[2024-02-29] MEDS ORDERED: SODIUM CHLORIDE FLUSH 10 ML SYR IV PRN (16:15)
[2024-02-29] MEDS: SODIUM CHLORIDE 0.9% 1000ML 1,000 ML IV ONE ×2 (16:31→18:16)
[2024-02-29 16:48] LABS: BASOPHILS # (AUTO) 0.1 (0.0-0.1); BASOPHILS % 0.4 % (0.0-1.0); EOSINOPHILS # (AUTO) 0.2 (0.0-0.4); EOSINOPHILS % 1.2 % (0.0-6.0); HEMATOCRIT 31.6 % (38.2-49.6); HEMOGLOBIN 10.9 g/dL (14.0-18.0); LYMPHOCYTES # (AUTO) 4.2 (1.0-3.2); LYMPHOCYTES % 33.7 % (18.0-39.1); MEAN CORPUSCULAR HEMOGLOBIN 34.4 pg (28-32); MEAN CORPUSCULAR HGB CONC 34.5 g/dL (31-35); MEAN CORPUSCULAR VOLUME 99.7 fL (81-99); MONOCYTES # (AUTO) 0.9 (0.2-0.8); MONOCYTES % 7.3 % (4.4-11.3); NEUTROPHILS # (AUTO) 6.9 (2.1-6.9); NEUTROPHILS % 56.3 % (38.7-80.0); PLATELET COUNT 190 x10e3/uL (140-360); RED BLOOD COUNT 3.17 x10e6/uL (4.3-5.7); RED CELL DISTRIBUTION WIDTH 13.5 % (11.7-14.4); WHITE BLOOD COUNT 12.32 x10e3/uL (4.8-10.8)
[2024-02-29 17:15] LABS: ALANINE AMINOTRANSFERASE 27 IU/L (0-55); ALBUMIN 3.4 g/dL (3.5-5.0); ALBUMIN/GLOBULIN RATIO 1.3 (0.8-2.0); ALKALINE PHOSPHATASE 83 IU/L (40-150); ANION GAP 17.9 mmol/L (8-16); BILIRUBIN,TOTAL 0.2 mg/dL (0.2-1.2); BLOOD UREA NITROGEN 24 mg/dL (7-26); BUN/CREATININE RATIO 15 (6-25); CALCIUM 9.2 mg/dL (8.4-10.2); CARBON DIOXIDE 17 mmol/L (22-29); CHLORIDE 98 mmol/L (98-107); EST GLOMERULAR FILTRATION RATE 44 ML/MIN (>=60); GLUCOSE 116 mg/dL (74-118); POTASSIUM 3.9 mmol/L (3.5-5.1); SODIUM 129 mmol/L (136-145); TOTAL PROTEIN 6.1 g/dL (6.5-8.1)
[2024-02-29 17:24] LABS: TROPONIN I < 0.001 ng/mL (0-0.300)
[2024-02-29 19:27] VITALS: O2SAT 99
== END 2024-02-29 19:30 | disposition home or self-care (01) ==
LOC: ER 16:17
DX: R55 Syncope and collapse (principal); E86.1 Hypovolemia; R94.31 Abnormal electrocardiogram [ECG] [EKG]
CPT/HCPCS: 36415; 71045; 80053; 80320; 84484; 85025; 93005; 94760; 99284; J7030